=== PATIENT | female | born 1980 | race Caucasian/White ===

== ENCOUNTER → 2018-01-17 12:14 | Outpatient (CLI) | payer OTHER, SELFPAY ==
--- NOTE | 2018-01-17 12:25 | RAD_ITS ---
INDICATION: Infertility. PROCEDURE: Hysterosalpingogram. FLUOROSCOPY TIME (if supplied): (0: 24) seconds Placement of the catheter and the procedure were performed by: Surgeon Dr. Galloway. TECHNIQUE: Fluoroscopy and fluoroscopic spot imaging were provided by the Department of Radiology to the attending surgeon. Images were obtained under direction, supervision and review of the surgeon. Radiologist was present during the entire exam for fluoroscopy. Approximately 10 cc Isovue 370 was utilized. Findings: Iodinated contrast injection into the cervix, and endometrial cavity and both right and left fallopian tubes seen. Right and left peritoneal spillover noted. No obvious filling defect to suggest endometrial synechiae identified. RAD/Salpingogram IMPRESSION: Bilateral peritoneal spill over indicating patent fallopian tubes. Electronically Signed: Ilan Lawson, at 13:34 EDT Tel , Service support ,
== END ==
PROVIDERS: Family Provider Family Medicine; PCP Family Medicine; Visit Provider Obstetrics & Gynecology
DX: N97.9 Female infertility, unspecified (principal)
CPT/HCPCS: 58340; 74740; Q9967

== ENCOUNTER 2018-07-07 06:16 | Emergency (ER) | payer OTHER, SELFPAY ==
[2018-07-07 06:17] VITALS: BP 119/79; PULSE 100; RESP 18; TEMP 37.6; O2SAT 99; BMI 23.6
--- NOTE | 2018-07-07 06:37 | RAD_ITS ---
STUDY: X-RAY CHEST REASON FOR EXAM: Female, 38 years old. Cough. Fever TECHNIQUE: Frontal and lateral views of the chest. COMPARISON: None. FINDINGS: The lungs are clear and expanded. There is no demonstrated pleural abnormality. Normal size heart. Normal mediastinum and ashok. Normal visualized pulmonary arteries. Normal visualized aortic arch and descending thoracic aorta. Normal visualized thoracic spine. Normal visualized ribs, clavicles, and shoulders. There is no demonstrated abnormality of the visualized soft tissue structures of the upper abdomen. RAD/Chest PA and Lateral IMPRESSION: Normal x-ray examination of the chest. Electronically Signed: Alex Obando, at 7:43 EDT Tel , Service support ,
--- NOTE | 2018-07-07 06:39 | ED.VISSUMM ---
- ER Visit Summary Date of Service: 07/07/18 Chief Complaint: Fever History of Present Illness: The patient is a 38 F who presents postop day 2 with a fever. Patient had a laparoscopic hysteroscope done by Dr. Quinonez at [facility] on Wednesday. She has been doing well with no pain. Minimal bleeding. No vaginal discharge. Has not needed any pain medication. She states her only complaint is how sore her throat has been since being intubated. She notes that she has developed a cough with a little bit of sputum. This morning she woke up with 101 fever and chills and body aches. She gets a headache with cough. She denies any urinary symptoms. She has not taken anything for fever reduction. She has been drinking cool fluids prior to arrival in the emergency department Physical Examination: Oral temperature here 99.6 heart rate of 100 respirations are 18 pulse ox 98% room air blood pressure 119/79 Gen: Well-nourished well-developed Head: Normocephalic atraumatic Eyes: Perrl EOMI ENT: TMs clear no rhinorrhea moist mucous membranes there is soft palate erythema most likely related to the intubation Neck: Supple no lymphadenopathy no JVD nontender CVS: Regular rate rhythm no murmurs normal S1-S2 Respiratory: No distress clear to auscultation bilaterally chest nontender Abdomen: Soft nontender nondistended normal bowel sounds no masses Back: Nontender Extremity: Nontender no edema Skin: Normal color no rash Neuro: alert orientated ?3 CN II-XII intact normal strength sensation reflexes gait cerebellar Psych: Normal affect normal mood Test Results: Chest x-ray, urinalysis, and influenza were ordered. These were negative. Emergency Department Course and Treatment: The patient is postop day 2 with reported fever. She has a slight cough. I suspect the fever is more due to atelectasis. I would recommend deep breathing and continued postoperative care. She is to call her surgeon if he has any concerns or new developments. I spoke with Dr. Ayon who is covering Dr. Cristiano forbes. He is comfortable with this plan and is in agreement. Impression: 1. Postoperative fever This note was generated with [employer] dictation software. It may contain incorrect words, spelling, and punctuation that were not noted in review of the chart prior to signing ED Disposition - Plan for ED Patient: Disposition: Home or Assisted Living Instructions: Postsurgical Deep Breathing Additional Instructions: If any new symptoms worsening or concerns please call your surgeon or return to the emergency department.
--- NOTE | 2018-07-07 06:42 | ED.DCSUM_ITS ---
- ER Visit Summary Date of Service: 07/07/18 Chief Complaint: Fever History of Present Illness: The patient is a 38 F who presents postop day 2 with a fever. Patient had a laparoscopic hysteroscope done by Dr. Quinonez at [facility] on Wednesday. She has been doing well with no pain. Minimal bleeding. No vaginal discharge. Has not needed any pain medication. She states her only complaint is how sore her throat has been since being intubated. She notes that she has developed a cough with a little bit of sputum. This morning she woke up with 101 fever and chills and body aches. She gets a headache with cough. She denies any urinary symptoms. She has not taken anything for fever reduction. She has been drinking cool fluids prior to arrival in the emergency department Physical Examination: Oral temperature here 99.6 heart rate of 100 respirations are 18 pulse ox 98% room air blood pressure 119/79 Gen: Well-nourished well-developed Head: Normocephalic atraumatic Eyes: Perrl EOMI ENT: TMs clear no rhinorrhea moist mucous membranes there is soft palate keenan thema most likely related to the intubation Neck: Supple no lymphadenopathy no JVD nontender CVS: Regular rate rhythm no murmurs normal S1-S2 Respiratory: No distress clear to auscultation bilaterally chest nontender Abdomen: Soft nontender nondistended normal bowel sounds no masses Back: Nontender Extremity: Nontender no edema Skin: Normal color no rash Neuro: alert orientated ?3 CN II-XII intact normal strength sensation reflexes gait cerebellar Psych: Normal affect normal mood Test Results: Chest x-ray, urinalysis, and influenza were ordered. These were negative. Emergency Department Course and Treatment: The patient is postop day 2 with reported fever. She has a slight cough. I suspect the fever is more due to atelectasis. I would recommend deep breathing and continued postoperative care. She is to call her surgeon if he has any concerns or new developments. I spoke with Dr. Ayon who is covering Dr. Cristiano forbes. He is comfortable with this plan and is in agreement. Impression: 1. Postoperative fever This note was generated with [employer] dictation software. It may contain incorrect words, spelling, and punctuation that were not noted in review of the chart prior to signing ED Disposition - Plan for ED Patient: Disposition: Home or Assisted Living Instructions: Postsurgical Deep Breathing Additional Instructions: If any new symptoms worsening or concerns please call your surgeon or return to the emergency department.
--- NOTE | 2018-07-07 06:47 | ED.RN ---
PER MD PT IS NOT SEPTIC,
[2018-07-07 06:49] LABS: Bacteria 0 SEEN /hpf (None Seen); Mucous, Urine 0 SEEN /hpf (<or=2+); Red Blood Cells-Urine 0 SEEN /hpf (0-5); Squamous Epithelial Cells - UA 0 SEEN /hpf (5-10)
[2018-07-07 06:53] LABS: Color, Urine Yellow (Yellow); Glucose, Dipstick Normal (Normal); Ketone-Dipstick Negative (Negative); Leukocyte Esterase-Dipstick Negative /ul (Negative); Nitrite-Dipstick Negative (Negative); Occult Blood-Urine 50 /ul (Negative); Protein-Dipstick Negative (Negative); Urine Bilirubin Dipstick Negative (Negative); Urine Clarity Clear (Clear); Urine Urobilinogen Normal (Normal)
[2018-07-07 07:10] LABS: White Blood Cells 0 SEEN /hpf (0-5)
== END 2018-07-07 07:46 | disposition home or self-care (01) ==
PROVIDERS: Emergency Provider Emergency Medicine; Family Provider Family Medicine; PCP Family Medicine
DX: R50.82 Postprocedural fever (principal); R05 Cough; R51 Headache
CPT/HCPCS: 71046; 81001; 87804; 99282

== ENCOUNTER 2018-07-09 10:53 | Emergency (ER) | payer OTHER, SELFPAY ==
[2018-07-09 10:54] VITALS: BP 121/80; PULSE 97; RESP 16; TEMP 36.7; O2SAT 99; BMI 23.6
[2018-07-09 10:56] VITALS: TEMP 36.8
[2018-07-09 10:58] VITALS: TEMP 36.7
--- NOTE | 2018-07-09 11:09 | RAD_ITS ---
STUDY: X-RAY CHEST REASON FOR EXAM: Female, 38 years old. Cough and fever TECHNIQUE: PA and lateral views of the chest. COMPARISON: 06/29/2018 FINDINGS: The lungs are clear and expanded. There is no demonstrated pleural abnormality. Normal size heart. Mildly prominent bilateral ashok, left mildly larger than right, stable since recent comparison study. Normal visualized pulmonary arteries. Normal visualized aortic arch and descending thoracic aorta. Normal visualized thoracic spine. Normal visualized ribs, clavicles, and shoulders. There is no demonstrated abnormality of the visualized soft tissue structures of the upper abdomen. RAD/Chest PA and Lateral IMPRESSION: 1. Stable exam. No airspace consolidation. 2. Hilar fullness with left asymmetry suggests possibility of adenopathy. Electronically Signed: Jon Cronin MD at 11:45 EDT , Service support ,
[2018-07-09 11:36] LABS: Absolute Lymphocyte Count 0.92 X10^3/ul (0.83-4.51); Absolute Neutrophil Count 1.6 X10^3/uL (2.0-7.7); Basophil# 0.01 X10^3/uL; Basophil% 0.3 % (0-1); Eosinophil# 0.05 X10^3/uL; Eosinophils% 1.7 % (0-5); Hematocrit 42.6 % (37-47); Hemoglobin 14.6 g/dl (12.0-15.0); Lymphocyte # 0.92 X10^3/ul (4.0); Lymphocyte % 31.3 % (19-41); Mean Corp Hgb Conc 34.3 g/gl (32-36); Mean Corpuscular Hgb 30.7 pg (27.0-32.0); Mean Corpuscular Volume 89.5 fL (81-99); Mean Platelet Vol. 9.8 fl (6.2-12.0); Monocyte% 13.6 % (0-10); Neutrophil # 1.56 X10^3/uL (2.7-7.7); Neutrophil % 53.1 % (47-70); Platelet Count 234 K/mm3 (150-450); RBC Distribution Width CV 12.6 % (11.6-14.6); Red Blood Count 4.76 M/mm3 (4.2-5.4); White Blood Count 2.9 K/mm3 (4.4-11.0)
[2018-07-09 11:38] LABS: POSITIVE COUNT NO; POSITIVE DIFFERENTIAL NO; POSITIVE MORPHOLOGY NO
--- NOTE | 2018-07-09 11:39 | NURSING ---
HOSPITALIST AND DIRECTOR OF OUTPATIENT SERVICES PAGED
[2018-07-09 11:44] LABS: Anion Gap 4 (5-15); BUN 5 mg/dL (7-18); BUN/Creat Ratio 5.9 RATIO (10-20); Calcium,Total 8.4 mg/dL (8.5-10.1); Chloride 106 mmol/L (98-107); Creatinine, Serum 0.85 mg/dL (0.55-1.02); EST Glomerular Filtration Rate 79 mL/min (>60); Est Glom Filt Rate - Afr Amer 96 mL/min (>60); Estimated Creatinine Clearance 67.72 ml/min; Glucose 91 mg/dL (74-106); Potassium 3.7 mmol/L (3.5-5.1); Sodium Level 138 mmol/L (136-145)
--- NOTE | 2018-07-09 13:01 | ED.VIS.GEN ---
History of Present Illness Chief Complaint: Fever Informant: Patient, Family Onset: Days Context: Sudden Onset Timing: Intermittent Quality: Worsening cough and persistent fever Location: Respiratory Current Severity: Mild Maximum Severity: Moderate Worsened by: Nothing Relieved by: Nothing Associated Symptoms: Moist cough Narrative: Patient a 38-year-old woman who was seen 2 days ago status post gynecologic surgery. Workup at that time was unremarkable. X-ray from that visit was reviewed and there is evidence of bilateral hilar lymphadenopathy. UA was obtained unremarkable. There was no CBC or BMP obtained at that time. Patient denies headache, visual, ocular auditory symptoms. She does have a moist cough which occasionally is productive. She did not look at the sputum does not know the color. She denies pleuritic chest pain. She does report intermittent right scapular pain. She denies leg pain, swelling discoloration. She denies GI or symptoms. She denies rash. She denies rhinorrhea, congestion, postnasal drainage, earache or sore throat Prior similar symptoms: No Recent Illness/Hospitalization: No Past Medical History - Allergies and Home Meds Allergies/Adverse Reactions: Allergies doxycycline Allergy (Verified 07/09/18 10:53) Chest tightness Primary Care Physician: Elena Hawkins MD [Primary Care Provider] - Past Medical History: None Lives: Spouse/ Significant Other Smoking Status: Never smoker Alcohol: Rare Review of Systems General: Reports: Chills, Fever, Malaise. Denies: Sweats, Weight loss Eyes: Denies: Visual changes - bilaterally, Diplopia ENT: Denies: Rhinorrhea, Sore throat Cardiovascular: Denies: Chest pain, Palpitations Respiratory: Reports: Cough. Denies: Dyspnea, Sputum, Dyspnea on exertion, Orthopnea, Paroxysmal nocturnal dyspnea, -, - Gastrointestinal: Denies: Abdominal pain, Nausea, Vomiting, Diarrhea, Melena, Hematochezia Genitourinary: Denies: Dysuria, Hematuria, Frequency, -, - Musculoskeletal: Denies: Myalgias, Arthralgias, Neck pain, Back pain, Swelling, Extremity Pain Skin: Denies: Rash Neurological: Denies: Headache, Weakness, Parasthesia, Numbness, -, - Hematologic: Denies: Easy bruising, Easy bleeding, Lymphadenopathy, -, - Allergy: Denies: Uticaria, Swelling of the mouth, Swelling of the tongue, -, - Physical Exam Vital Signs/Narrative: Vital Signs Temp Pulse Resp BP Pulse Ox 07/09/18 10:58 98.1 F 07/09/18 10:56 98.2 F 07/09/18 10:54 98.0 F 97 16 121/80 H 99 Inital Vital Signs reviewed: Yes General: Well nourished, Well developed, No Acute Distress Head: Normocephalic, Atraumatic Eyes: Perrl, EOMI. Negative for: Pale conjunctiva, Scleral icterus, - ENT: Moist mucous membranes, No rhinorrhea, TM's clear. Negative for: Sinus tenderness Neck: Supple, Nontender, No lymphadenopathy, No JVD Cardiovascular: Regular rate, Regular rhythm, No murmurs Respiratory: No distress, CTA bilaterally, Chest nontender. Negative for: Rales, Rhonchi, Wheezing, Decreased Air Movement Abdomen: Soft, Nontender, Nondistended, Normal bowel sounds, No masses. Negative for: Hepatomegaly, Splenomegaly Back: Nontender. Negative for: CVA tenderness Extremities: Nontender, No edema Skin: Normal color, No rash. Negative for: Pallor Neurological: Alert, Oriented x3, Cranial nerves II-XII grossly intact, Normal Strength, Normal Sensation Psychological: Normal affect, Normal Mood Diagnostic/Tx/Re-eval Chest X-Ray - ED: 2 View, Read by ED Physician, Normal, Heart, Lungs, Bony Structures, No Acute Disease, - - Bilateral hilar lymphadenopathy noted. The x-ray is unchanged from 2 days ago. The x-ray report from 2 days ago was read as negative. Radiologist was contacted and agrees with reading of bilateral hilar lymphadenopathy. Impressions Chest X-Ray 07/09/18 11:09 IMPRESSION: 1. Stable exam. No airspace consolidation. 2. Hilar fullness with left asymmetry suggests possibility of adenopathy. Electronically Signed: Jon Cronin MD at 11:45 EDT , Service support , 07/09/18 11:09 Chest PA and Lateral [RAD] Stat Laboratory Results 07/09/18 07/09/18 11:23 11:23 WBC 2.9 L RBC 4.76 Hgb 14.6 Hct 42.6 MCV 89.5 MCH 30.7 MCHC 34.3 RDW 12.6 RDW Differential 41.0 Plt Count 234 MPV 9.8 Immature Gran % (Auto) 0.000 Neut % (Auto) 53.1 Lymph % (Auto) 31.3 [place] % (Auto) 13.6 H Eos % (Auto) 1.7 Baso % (Auto) 0.3 Absolute Neuts (auto) 1.6 L Absolute Lymphs (auto) 0.92 Total Counted Not Reportable Sodium 138 Potassium 3.7 Chloride 106 Carbon Dioxide 28.0 Anion Gap 4 L BUN 5 L Creatinine 0.85 Estim Creat Clear Calc 67.72 Est GFR (MDRD) Af Amer 96 Est GFR (MDRD) Non-Af 79 BUN/Creatinine Ratio 5.9 L Glucose 91 Calcium 8.4 L - Medical Decision Making With moist slightly productive cough fever will obtain chest x-ray blood work to assess for atelectasis versus pneumonia versus other cause of fever. Since she is a 38-year-old woman with bilateral hilar lymphadenopathy this may represent an autoimmune disorder i.e. sarcoidosis. Because she has a productive cough we will placed on antibiotics. Because of her allergies she was treated with levofloxacin. She also reported reaction to azithromycin which was not listed. ED Disposition - Plan for ED Patient: Disposition: Home or Assisted Living Diagnosis: Postoperative fever, Productive cough, Bilateral hilar adenopathy syndrome Instructions: ED Fever Unconf Cause Prescriptions: levoFLOXacin tablet [Levaquin] 500 mg PO DAILY #7 tab Referrals: Elena Hawkins MD [Primary Care Provider] - 5-7 Days
[2018-07-09 13:16] VITALS: RESP 18; TEMP 37.1
== END 2018-07-09 13:17 | disposition home or self-care (01) ==
PROVIDERS: Emergency Provider Emergency Medicine; Family Provider Family Medicine; PCP Family Medicine
DX: R50.82 Postprocedural fever (principal); R05 Cough; R59.9 Enlarged lymph nodes, unspecified
CPT/HCPCS: 71046; 80048; 85025; 99283

== ENCOUNTER → 2018-07-18 | Outpatient (CLI) | payer OTHER, SELFPAY ==
[2018-07-09 10:54] VITALS: BMI 23.6
--- NOTE | 2018-07-18 16:28 | RAD_ITS ---
HISTORY: pt recently had surgery and wasn't feeling well after-abnormal chest xray EXAM: XR Chest 2 Views COMPARISON: 07/09/18 CXR FINDINGS: LINES/DEVICES: None. LUNGS: Radiographically clear. No consolidation, edema or effusion. No pneumothorax. MEDIASTINUM AND CARDIOVASCULAR STRUCTURES: Cardiac silhouette not enlarged. Persistent bilateral hilar prominence. BONES AND SOFT TISSUES: Unremarkable. RAD/Chest PA and Lateral IMPRESSION: No radiographic evidence of acute cardiopulmonary disease. Persistent bilateral hilar prominence. Adenopathy is possible. at 0500 Reported and signed by: Ramón Alberto MD Electronically Signed: Ramón Alberto, at 4:59 EDT Tel , Service support ,
== END | disposition home or self-care (01) ==
LOC: MTRAD 16:27
PROVIDERS: Family Provider Family Medicine; PCP Family Medicine; Referring Provider Family Medicine; Visit Provider Family Medicine
DX: R93.89 Abnormal findings on diagnostic imaging of other specified body structures (principal)
CPT/HCPCS: 71046

== ENCOUNTER → 2018-08-03 | Outpatient (CLI) | payer OTHER, SELFPAY ==
[2018-07-09 10:54] VITALS: BMI 23.6
--- NOTE | 2018-08-03 07:24 | CT_ITS ---
HISTORY: HILAR ADENOPATHY found on chest x-ray EXAMINATION: CT Chest W/ Contrast TECHNIQUE: Helically acquired images were obtained of the chest following IV contrast. A radiation dose optimization technique was used for this scan. IV Contrast dosage and agent: 100 Isovue 300 COMPARISON: Chest radiograph 07/18/18. FINDINGS: UPPER ABDOMEN: No acute pathology. HEART AND PERICARDIUM: Heart size is normal. There is no pericardial effusion. VESSELS: Thoracic aorta is not dilated. There is no aortic dissection. There is no central pulmonary embolism although this study was not performed with the pulmonary embolism protocol. MEDIASTINUM AND FLORENCE: Mild bilateral hilar lymphadenopathy. No paratracheal adenopathy. OTHER SOFT TISSUES: Included thyroid gland is unremarkable. There is no axillary, supraclavicular or lower cervical adenopathy. LUNGS AND LARGE AIRWAYS: 1.4 cm oval nodular density in the right lung apex with adjacent groundglass attenuation. Cluster of small tree-in-bud nodules in the posterior segment of the right upper lobe. Lungs otherwise clear. Central airways patent. No pneumothorax. PLEURA: Unremarkable. No pleural effusion or thickening. BONES: No suspicious lytic or blastic abnormality observed. CT/Chest WITH Contrast IMPRESSION: Findings are most suspicious for granulomatous infection such as nontuberculous microbacterial infection or another smoldering atypical pneumonia involving the right upper lobe and bilateral hilar lymph nodes. Noninfectious inflammatory process might also appear this way. The appearance is atypical for neoplasm which is unlikely. Individualized dose optimization techniques were used for this CT. at 1417 Reported and signed by: Ramón Alberto MD Electronically Signed: aRmón Alberto, at 14:16 EDT Tel , Service support ,
== END | disposition home or self-care (01) ==
LOC: CT 07:20
PROVIDERS: Family Provider Family Medicine; PCP Family Medicine; Referring Provider Family Medicine; Visit Provider Family Medicine
DX: R59.0 Localized enlarged lymph nodes (principal)
CPT/HCPCS: 71260; Q9967

== ENCOUNTER → 2018-08-09 | Outpatient (CLI) | payer OTHER, SELFPAY ==
[2018-08-09 12:24] LABS: Erythrocyte Sedimentation Rate 3 mm/hr (0-20)
[2018-08-09 12:46] LABS: CRP < 2.90 mg/L (0.0-3.0)
[2018-08-10 17:48] LABS: Mycoplasma Pneum AB IgG 351 U/mL (0-99); Mycoplasma pneum. AB IgM < 770 U/mL (0-769)
== END | disposition home or self-care (01) ==
LOC: MTLAB 09:49
PROVIDERS: Family Provider Family Medicine; PCP Family Medicine; Referring Provider Internal Medicine Pulmonary Disease; Visit Provider Internal Medicine Pulmonary Disease
DX: R91.1 Solitary pulmonary nodule (principal); R59.9 Enlarged lymph nodes, unspecified
CPT/HCPCS: 36415; 85652; 86140; 86738

== ENCOUNTER → 2018-12-22 08:04 | Outpatient (CLI) | payer OTHER, SELFPAY ==
[2018-12-22 08:46] LABS: hCG Titer Quant., Serum 268 mIU/mL (1-3)
== END ==
PROVIDERS: Family Provider Family Medicine; PCP Family Medicine; Visit Provider Obstetrics & Gynecology Reproductive Endocrinology
DX: Z32.00 Encounter for pregnancy test, result unknown (principal)
CPT/HCPCS: 36415; 84702

== ENCOUNTER → 2018-12-26 08:11 | Outpatient (CLI) | payer OTHER, SELFPAY ==
[2018-12-26 09:08] LABS: hCG Titer Quant., Serum 1474 mIU/mL (1-3)
== END ==
PROVIDERS: Family Provider Family Medicine; PCP Family Medicine; Referring Provider Obstetrics & Gynecology Reproductive Endocrinology; Visit Provider Obstetrics & Gynecology Reproductive Endocrinology
DX: Z32.01 Encounter for pregnancy test, result positive (principal)
CPT/HCPCS: 36415; 84702

== ENCOUNTER 2019-01-19 10:00 | Emergency (ER) | payer OTHER, SELFPAY ==
[2019-01-19 10:00] VITALS: BP 115/78; PULSE 99; RESP 17; TEMP 36.6; O2SAT 96; BMI 24.0
--- NOTE | 2019-01-19 10:23 | ED.DCSUM_ITS ---
- ER Visit Summary Date of Service: 01/19/19 Chief Complaint: Headache History of Present Illness: The patient is a [address] Hawkins. She is a at [address] Shipley for this. She is currently taking injectable progesterone, estradiol, and aspirin. Patient reports that she has a headache that began yesterday at 5 AM. Is gradually gotten worse. Is a sharp pain over her right moravian with radiation toward her right side of her jaw. Is 10 out of 10 at worst and 7-10 currently. Is worsened by light and sound. She is used ice, aromatherapy, and Tylenol without relief. She has been nauseated without vomiting. She denies any numbness or weakness. No change in her vision. No fever, chills, recent injury to her head. She reports that this is the second migraine that she has had since starting the injectable hormones. Physical Examination: Vitals: Stable. Afebrile. General: Well-nourished and well-developed. Head: Normocephalic atraumatic. Neck: Supple, no lymphadenopathy. No JVD. Nontender. Cardiovascular: Regular rate and rhythm. No murmurs. Respiratory: No respiratory distress. Clear to auscultation bilaterally. Abdominal: Soft, nontender, nondistended, normal bowel sounds. No guarding, rebound, or peritoneal signs. Back: Nontender. Extremities: Nontender, no edema. Skin: Normal color, no rash. Neurologic: Alert and oriented ?3. Cranial nerves II through XII are intact. Normal strength and sensation. Psych: Normal affect. Test Results: Patient refused CT. Emergency Department Course and Treatment: Patient had an IV placed. She was given a liter of normal saline. She was given Reglan IV and Tylenol p.o. She is resting more comfortably. On repeat exam she reports that her headache is completely resolved. Treatment Plan: Patient will be discharged instructions to contact Dr. Quinonez, her public relations account executive, to see if he wants to change anything about her hormone therapy for her . She will also be given a prescription for Reglan to use as needed. Return to the emergency department for any worsening symptoms. Disposition: To home in improved and stable condition. Impression: 1. Cephalgia. 2. First trimester . This note was generated with [employer] software. It may contain incorrect words, spelling, and punctuation that were not noted in review of the chart prior to signing ED Disposition - Plan for ED Patient: Instructions: HEADACHE, Unspecified Prescriptions: Metoclopramide [Reglan] 10 mg PO 4X/DAY PRN #20 tablet PRN Reason: Headache Referrals: Elena Hawkins MD [Primary Care Provider] - 1-2 Days if not improving
[2019-01-19] MEDS: Metoclopramide 10 MG/2 ML Vial IV (10:45)
[2019-01-19] MEDS: Acetaminophen 500 MG Tablet 1000 MG PO (10:45)
[2019-01-19] MEDS: 0.9% Normal Saline 1,000 ML 999 ML IV (10:45)
[2019-01-19 11:47] VITALS: BP 94/65; PULSE 78; RESP 16; O2SAT 98
== END 2019-01-19 11:48 | disposition home or self-care (01) ==
LOC: ED 10:35
PROVIDERS: Emergency Provider Emergency Medicine; Family Provider Family Medicine; PCP Family Medicine
DX: O26.891 Other specified pregnancy related conditions, first trimester (principal); R51 Headache; Z3A.08 8 weeks gestation of pregnancy; Z79.82 Long term (current) use of aspirin; Z79.899 Other long term (current) drug therapy
CPT/HCPCS: 96361; 96374; 99284; J7030

== ENCOUNTER 2019-08-04 05:32 | Inpatient (IN) | payer OTHER, SELFPAY ==
[2019-08-04] VITALS (48 sets, daily range): BP systolic 81–131; BP diastolic 46–81; PULSE 85–127; RESP 14–22; TEMP 35.7–37.2; O2SAT 92–100; BMI 28.6
[2019-08-04 05:42] LABS: ROM Internal Control Test YES-OK TO RESULT pt. (Internal QC)
[2019-08-04 05:43] LABS: ROM Patient Test POSITIVE (Negative)
[2019-08-04] MEDS: Lactated Ringers 1,000 ML 50 ML IV (05:45)
[2019-08-04 05:58] LABS: Absolute Lymphocyte Count 1.25 X10^3/uL (0.83-4.51); Absolute Neutrophil Count 7.1 X10^3/uL (2.0-7.7); Basophil# 0.04 X10^3/uL; Basophil% 0.4 % (0-1); Hematocrit 34.3 % (37-47); Hemoglobin 11.6 g/dL (12.0-15.0); Lymphocyte # 1.25 X10^3/ul (4.0); Mean Corp Hgb Conc 33.8 g/dL (32-36); Mean Corpuscular Hgb 29.8 pg (27.0-32.0); Mean Corpuscular Volume 88.2 fL (81-99); Monocyte# 1.04 X10^3/uL; Monocyte% 10.8 % (0-10); NRBC Flagged by Analyzer 0 % (0-5); Neutrophil # 7.13 X10^3/uL (2.7-7.7); Neutrophil % 74.2 % (47-70); Platelet Count 291 K/mm3 (150-450); RBC Distribution Width CV 13.1 % (11.6-14.6); RBC Distribution Width SD 41.2 fl (35.1-43.9); Red Blood Count 3.89 M/mm3 (4.2-5.4); White Blood Count 9.6 K/mm3 (4.4-11.0)
[2019-08-04] MEDS: Betamethasone/Betamethasone 30 MG/5 ML Vial 12 MG IM (06:55)
[2019-08-04] MEDS: Oxytocin 30 units/NS 500 ml 30 UNITS/500 ML IV.SOLN IV (09:07)
--- NOTE | 2019-08-04 09:40 | PCM.HP.OB ---
History Date of Admission: 08/04/19 Final ANTONIO: 09/01/19 Final ANTONIO Source: US <20 weeks Gestational age: 36 Weeks and 0 Days History of this : This is a 39 year-old, 2 para 0-1-0-1 at 36 weeks gestation with spontaneous rupture membranes at approximately 4 AM. She had a large gush. She was not having any regular contractions. She had no gross vaginal bleeding. Prior to labor and delivery and was found to be ruptured. This is an in vitro . She has a history of a previous delivery and she did attempt to take progesterone injections. However, after 3 injections she had some significant mood changes and had to discontinue them. She has advanced maternal age. She had preimplantation genetic studies performed on the embryos before transfer. Allergies azithromycin [From Zithromax] Allergy (Verified 08/04/19 05:40) Chest tightness doxycycline Allergy (Verified 08/04/19 05:40) Chest tightness Home Medications: Home Medications Progesterone 1 dose IM DAILY 01/19/19 Doxylamine Succinate [Unisom] 25 mg PO DAILY 08/04/19 Vits [Prenatabs FA] 1 tab PO DAILY 08/04/19 Smoking Status: Never smoker Alcohol: None Number of Fetus(es): 1 History Past Pregnancies: Past Pregnancies Delivery Date Name GA/ Weeks Outcome Route Wt Sex Labor Length Anesthesia Delivery Location Provider FOB Expected Infant Delivery Method: Spontaneous Vaginal Review of Systems Constitutional: Denies: Chills, Fever Eyes: Denies: Blurred vision HEENT: Denies: Head Aches Cardiovascular: Denies: Chest Pain Respiratory: Denies: Cough Gastrointestinal: Denies: Nausea, Vomiting Genitourinary: Denies: Dysuria Skin: Denies: Rash Neurological: Denies: Blurred vision, Slurred speech, Headaches Physical Exam Vitals: Vital Signs Temp Pulse BP Pulse Ox 98.7 F 96 111/62 98 08/04/19 09:24 08/04/19 09:27 08/04/19 09:27 08/04/19 09:24 General: Alert, Cooperative, No apparent distress Cardiovascular: Regular rate Lungs: Normal air movement Abdomen: Soft, Non Tender, Non-Distended, Gravid, Appropriate for Gestational Age Extremities:: No edema Neurological: Neuro grossly intact Assessment/Plan This is a 39 year-old, @ 36 0/7 weeks w/ PPROM induction of labor w/ pitocin having occasional decelerations, monitor closely EFW is approx 3500 gm, pelvis clinically adeqate to expect vaginal delivery epidural when needed GBS prophylaxis started had BMZ x 1
[2019-08-04] MEDS: Lactated Ringers 500 ML 999 ML IV ×4 (12:27→19:36)
[2019-08-04] MEDS: Amnioinfusion- 0.9% NS 1,000 ML IV.SOLN. 1000 ML INTRA-UTER (14:35)
[2019-08-04] MEDS: fentaNYL-bupivacaine (epidural) 100 ML BAG EPIDURAL (18:12)
--- NOTE | 2019-08-04 20:52 | OP.PCM_ITS ---
Delivery Classification: DAISY Final ANTONIO: 09/01/19 Gestational age: 36 Weeks and 0 Days departmental buyer: Mercy De Los Santos Type of Anesthesia:: Spinal Date of Procedure: 08/04/19 Pre-Operative Diagnosis: gestation, PROM, persitent category 2 FHR- remote from delivery Post-Operative Diagnosis: same, Live male born Indications for : Nonreassuring Status Description of Procedure: After informed consent was obtained the patient was taken the operating room She was then placed in the supine position. She was prepped and draped in the normal sterile fashion. Epidural Anesthesia was found to be adequate. At this time a Pfannenstiel skin incision was made with a knife was carried down to the underlying layer of the fascia. The fascial incision was then extended laterally using curved Butler scissor. Attention was then turned to the superior aspect of the fascial edge was grasped with 2 straight Cardinal clamps tented up and the rectus muscle dissected off sharply using curved Butler scissor. Attention was then turned to the inferior aspect where again Rehan clamps were placed in the rectus muscles were tented up and the fascia was dissected off sharply using the curved Butler scissor. Rectus muscles were then in the midline bluntly and peritoneum was entered bluntly. Gentle opposing traction was placed. At this time the vesicouterine peritoneum was identified. Scalpel was used to make a uterine incision in a low transverse fashion. The uterus was then entered bluntly gentle opposing traction was placed to extend this incision. Infant's head was brought to the uterine incision was delivered atraumatically. loose nuchal x 1. Cord was clamped and cut was handed to the waiting nursery team. The Placenta was removed from the uterus. The uterus remained in the abdominal cavity. The uterus was cleared of all clots and debris using a lap. At this time the uterine incision was reapproximated using #1 Vicryl in a running locked fashion followed by a second firgure of eight layer with 1-0 vicryl. Hemostasis was appreciated.. Gutters were cleared of all clots and debris. Uterine incision was reevaluated and noted to be of excellent hemostasis. At this time the peritoneum was grasped with Kellys reapproximated using #3 Vicryl suture in a running fashion. Muscles then reapproximated using #2 Vicryl in a interrupted mattress suture fashion. Fascia was then reapproximated using #1 Vicryl in a running fashion. Subcu layer was reapproximated with #2 0 plain gut suture in an interrupted fashion. Subcu layer was closed using 4-0 Monocryl in a subcu fashion. Dry sterile dressing was applied. Instrument lap needle count correct ?2. Anticipated normal postoperative course. Amniotic Membrane Rupture Type: Spontaneous Amniotic Fluid Description: Clear Placenta Disposition: [facility] Drain: Pruitt to straight drain Cord Entanglement: Around neck x 1, loose Nuchal Cord Compression: With compression Cord Vessel Description: 3 Vessels Esitmated Blood Loss (ml): 600 Infant Gender: Male (1 minute): 8 (5 minute): 9 Delayed cord clamping: No Antibiotic Given: Ancef 2 grams IV x1 Pt instructed on risks of surgery: Bleeding, Anesthesia Risks, Infection, Injury to surrounding structure(s) including bowel and bladder Complications: None - Admit VTE Documentation VTE Present on Admission: Yes VTE Mechan Device Prophylaxis: SCD's VTE Pharm Prophylaxis ordered?: No
[2019-08-04] MEDS: Oxytocin 30 units/NS 500 ml 30 UNITS/500 ML IV.SOLN 167 UNITS IV (21:06)
[2019-08-04] MEDS: Lactated Ringers 1,000 ML 100 ML IV (22:21)
[2019-08-05] VITALS (10 sets, daily range): BP systolic 97–108; BP diastolic 56–71; PULSE 82–108; RESP 16–20; TEMP 36.2–36.9; O2SAT 96–100
[2019-08-05] MEDS: Ondansetron 4 MG/2 ML Vial IV (00:37)
[2019-08-05] MEDS: Ketorolac 30 MG/ML Syringe IV ×4 (01:59→20:47)
[2019-08-05] MEDS: Lactated Ringers 1,000 ML 100 ML IV (03:55)
[2019-08-05 06:21] LABS: Hematocrit 29.8 % (37-47); Hemoglobin 9.8 g/dL (12.0-15.0); Mean Corp Hgb Conc 32.9 g/dL (32-36); Mean Corpuscular Hgb 30.7 pg (27.0-32.0); Mean Corpuscular Volume 93.4 fL (81-99); Mean Platelet Vol. 10.1 fl (6.2-12.0); Platelet Count 231 K/mm3 (150-450); RBC Distribution Width CV 13.2 % (11.6-14.6); RBC Distribution Width SD 44.1 fl (35.1-43.9); Red Blood Count 3.19 M/mm3 (4.2-5.4); White Blood Count 13.5 K/mm3 (4.4-11.0)
[2019-08-05] MEDS: 0.9% Saline Lock 10 ML Syringe IV ×3 (09:00→20:47)
--- NOTE | 2019-08-05 11:38 | CASEMGMT ---
Social Work Labor and Delivery Unit Date of Referral: 08/05/2019 Time of Referral: 1059 Referred By: Dr. Ayala Date of Intervention: 08/05/2019 Tie of Intervention: 1138 Reason for Referral: Triggered PHQ-9, transferred to [facility]. History obtained from: Mother of baby (MOB), Chart, Nursing staff. Household composition: MOB, Father of baby (FOB), Steve Toledo and MOB's 12 year old daughter, Kimberley. This , Case Tre does not share paternity with Kimberley. Patient's parent/guardian status: MOB and FOB have guardianship of this . MOB is guardian of Kimberley. MOB and FOB have been for 3 years and MOB voicing no safety concerns for in the home. Medical History: MOB with that was not planned. Advanced maternal age. In-vitro . Infant born on 08/04/2019 with 's of 8 and 9 at 1min and 5min. weight of 2950g. Infant transferred to [facility] due to respiratory distress on 08/05/2019 in mannequin coloring artist. Educational Status: Bachelor degree. 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 No concerns with comprehension or understanding. FOB also working. Financial Status: No concerns. Supplies: MOB reporting to have all needed supplies within the home. MOB planning to breastfeed and pump as infant is not able to be with MOB at this time. Childcare/caregivers: MOB to be primary caregiver for patient at this time. Transportation: No concerns. Programs/Agencies Involved: None Children Services/Legal Issues: None Mental Health History: MOB denies any mental health history or counseling services. MOB educated on signs and symptoms of depression and MOB's risk for depression. MOB with positive mindset in how to manage through this time that MOB is unable to be with infant. MOB able to express positive coping skills and self identified the importance of healing for MOB so MOB is able to care for . MOB denies any SI/HI history or current thoughts. Substance Abuse/use: None PHQ-9: Triggered PHQ-9 2, patient stating to have had difficulty finding interest in life over the past few weeks. Patient stating to have been under home quarantine due to COVID-19 pandemic for the pasts 14 days prior to having baby and to have not been able to find interest in doing things as I could not go anywhere. Patient is negative for other questions on PHQ-9 assessment. Patient with forward thinking thoughts and pleasant/appropriate affect. Broached topic of possible counseling services for support. MOB not open to committing to anything at this time, but resources provided for local counseling agencies if need would arise. MOB was open to receiving list. Family/Social Stressors: being transferred to [facility]. Current COVID-19 crisis. No other stressors identified. Support System: MOB stating to have positive support from FOB and family. Depression and Anxiety/Shaken Baby/Safe Sleeping: MOB educated on PPD, Anxiety, Shaken Baby, Safe Sleeping and resources provided. MOB also provided with list of local counseling agencies. Assessment: Met with MOB in room. Introduced self as well as health care social worker role. MOB agreeable to speaking with this health care social worker. MOB tearful due to infant being transferred to [facility]. MOB able to collect self and manage emotions. This health care social worker normalizing MOB's emotions and feelings at this time. MOB unsure when MOB will be able to discharge due to . MOB stating to have really not wanted a and to be frustrated with how the will make it even more complicated to be with . MOB able to express frustration appropriately and able to normalize self to current situation. MOB stated to understand the importance of getting self healthy in order to be able to care for in the detention. MOB stating to have a connection with and to be looking forward to being able to be with . FOB is currently with infant and giving MOB updated on infant status. Active support and listening provided. PLAN: MOB to discharge when medically cleared to go be with at [facility]. No further services request or indicated. Barb IRVING, JENNYFER
--- NOTE | 2019-08-05 13:09 | PN.OBGYN_ITS ---
Subjective: Pain well controlled. Average lochia. No nausea. Has a history of nausea with narcotic medications. Tolerating regular diet - Physical Exam Vitals/I&O's: Vital Signs Temp Pulse Resp BP Pulse Ox 98.4 F 87 18 104/67 100 08/05/19 08:35 08/05/19 08:35 08/05/19 08:35 08/05/19 08:35 08/05/19 08:35 Oxygen Delivery Method Room Air Weight: 66.6 kg Body Mass Index (BMI) 28.6 Intake and Output for Last 24 Hours 08/03/19 08/04/19 08/05/19 23:59 23:59 23:59 Intake Total 4025.84 / 4025.84 2065.00 / 2065.00 Output Total 3050 / 3050 250 / 250 Balance 975.84 / 975.84 1815.00 / 1815.00 General: Alert, Cooperative, No apparent distress Lungs: Normal air movement Abdomen: Soft, Distended - mildly, Tender - appropriately Extremities: Edema - trace Skin: Incision - bandage is clean, dry and intact Laboratory Results 08/05/19 05:45: WBC 13.5 H, RBC 3.19 L, Hgb 9.8 L, Hct 29.8 L, MCV 93.4 D, MCH 30.7, MCHC 32.9, RDW Std Deviation 44.1 H, RDW Coeff of Phill 13.2, Plt Count 231, MPV 10.1 Current Medications Acetaminophen (Tylenol) 1,000 mg PO Q8H PRN PRN Reason: Pain Score 1-3/10 Bisacodyl (Dulcolax) 10 mg RECTAL UD PRN PRN Reason: If no BM Hydrocortisone (Hytone) 1 applic TOPICAL TID PRN PRN; Protocol PRN Reason: Discomfort Naloxone HCl 4 mg/ Dextrose 504 mls @ 0 mls/hr IV .Q0M PRN; Protocol PRN Reason: To maintain Resp. rate >10 Ibuprofen (Motrin) 600 mg PO Q6H PRN PRN PRN Reason: Pain Score 1-3/10 Ketorolac Tromethamine (Toradol (Bkc)) 30 mg IV Q6H NAVNEET Stop: 08/06/19 20:31 Last Admin: 08/05/19 08:52 Dose: 30 mg Documented by: Methylergonovine Maleate (Methergine) 0.2 mg IM X1 PRN PRN Reason: Uterine Atony Naloxone HCl (Narcan) 0.02 mg IV Q1M PRN PRN Reason: RR <10 and pt unresponsive Ondansetron HCl (Zofran) 4 mg IV Q4H PRN PRN PRN Reason: Nausea Last Admin: 08/05/19 00:37 Dose: 4 mg Documented by: Prochlorperazine Edisylate (Compazine Iv) 10 mg IV Q6H PRN PRN PRN Reason: NAUSEA Senna/Docusate Sodium (Senokot-S, Corie-Colace) 0 tablet PO DAILY PRN PRN Reason: Constipation Simethicone (Mylicon) 80 mg PO PCHS PRN PRN Reason: Indigestion/stomach pain Sodium Chloride () 5 - 15 ml IV UD PRN PRN Reason: SALINE FLUSH Last Admin: 08/05/19 09:00 Dose: 10 ml Documented by: Medical Necessity - Tobacco Use Smoking Status: Never smoker Assessment/Plan POD#1 S/P PRIMARY C/S for intolerance of labor baby transported to [facility] NICU for respiratory issues h/o nausea w/ narcotics. trial of low dose prn. Zofran prn before dosing. May consider tramadol trial. will likely d/c home tomorrow
--- NOTE | 2019-08-05 16:15 | NURSING ---
Straight cath completed after pt. up to bathroom and in shower and unable to void. 600 cc drained from bladder with cath. Pt. to attempt to void prior to pumping each time as she reports this happened after last delivery and felt it was due to waiting to long to void.
[2019-08-05] MEDS: Acetaminophen 500 MG Tablet 1000 MG PO (19:02)
[2019-08-06 02:30] VITALS: BP 94/56; PULSE 68; RESP 16; TEMP 36.3; O2SAT 98
[2019-08-06] MEDS: Ketorolac 30 MG/ML Syringe IV ×2 (02:43→07:58)
[2019-08-06] MEDS: Senna/Docusate Sodium 1 Tablet PO (02:57)
[2019-08-06] MEDS: Acetaminophen 500 MG Tablet 1000 MG PO (06:19)
--- NOTE | 2019-08-06 07:51 | PCM.PN.OB ---
Subjective: Pain well controlled. Average lochia. - Physical Exam Vitals/I&O's: Vital Signs Temp Pulse Resp BP Pulse Ox 97.3 F L 68 16 94/56 L 98 08/06/19 02:30 08/06/19 02:30 08/06/19 02:30 08/06/19 02:30 08/06/19 02:30 Oxygen Delivery Method Room Air Weight: 66.6 kg Body Mass Index (BMI) 28.6 Intake and Output for Last 24 Hours 08/04/19 08/05/19 08/06/19 23:59 23:59 23:59 Intake Total 4025.84 / 4025.84 2065.00 / 2065.00 Output Total 3050 / 3050 1550 / 1550 Balance 975.84 / 975.84 515.00 / 515.00 General: Alert, Cooperative, No apparent distress Abdomen: Soft, Distended - Mildly, softly, Tender - Appropriately Current Medications Acetaminophen (Tylenol) 1,000 mg PO Q8H PRN PRN Reason: Pain Score 1-3/10 Last Admin: 08/06/19 06:19 Dose: 1,000 mg Documented by: Bisacodyl (Dulcolax) 10 mg RECTAL UD PRN PRN Reason: If no BM Hydrocortisone (Hytone) 1 applic TOPICAL TID PRN PRN; Protocol PRN Reason: Discomfort Naloxone HCl 4 mg/ Dextrose 504 mls @ 0 mls/hr IV .Q0M PRN; Protocol PRN Reason: To maintain Resp. rate >10 Ibuprofen (Motrin) 600 mg PO Q6H PRN PRN PRN Reason: Pain Score 1-3/10 Ketorolac Tromethamine (Toradol (Bkc)) 30 mg IV Q6H NAVNEET Stop: 08/06/19 20:31 Last Admin: 08/06/19 02:43 Dose: 30 mg Documented by: Methylergonovine Maleate (Methergine) 0.2 mg IM X1 PRN PRN Reason: Uterine Atony Naloxone HCl (Narcan) 0.02 mg IV Q1M PRN PRN Reason: RR <10 and pt unresponsive Ondansetron HCl (Zofran) 4 mg IV Q4H PRN PRN PRN Reason: Nausea Last Admin: 08/05/19 00:37 Dose: 4 mg Documented by: Ondansetron HCl (Zofran Odt) 4 mg PO Q8H PRN PRN PRN Reason: NAUSEA Oxycodone HCl (Oxyir) 2.5 - 5 mg PO Q4H PRN PRN PRN Reason: Pain Score 4-10/10 Prochlorperazine Edisylate (Compazine Iv) 10 mg IV Q6H PRN PRN PRN Reason: NAUSEA Senna/Docusate Sodium (Senokot-S, Corie-Colace) 0 tablet PO DAILY PRN PRN Reason: Constipation Last Admin: 08/06/19 02:57 Dose: 1 tablet Documented by: Simethicone (Mylicon) 80 mg PO PCHS PRN PRN Reason: Indigestion/stomach pain Last Admin: 08/05/19 21:54 Dose: 80 mg Documented by: Sodium Chloride () 10 ml IV UD NAVNEET Last Admin: 08/05/19 20:47 Dose: 10 ml Documented by: Medical Necessity - Tobacco Use Smoking Status: Never smoker Assessment/Plan day #2 status post section for nonreassuring heart tones. Patient is doing well. Desires discharge home. is doing well in special care nursery
--- NOTE | 2019-08-06 07:53 | DCINST_ITS ---
Discharge Diet: No Restrictions Discharge Activity: Return to Normal Activity, May Not Drive - for 2 weeks, May not drive while taking narcotic pain medications., May Shower, May Take a Tub Bath - in 7 days. May resume sexual activity in: 4-6 weeks Lifting Restrictions: 20 pounds Additional Activity Instructions:: Nothing in the vagina for 4-6 weeks. You may return to work/school in 6 weeks. Call your doctor if your incision/area has: Continuous Slow Oozing, Sudden Increased Bleeding, Increased Pain/ Swelling, Increased Redness, Foul Smelling Discharge Call your doctor if you observe: Fever of 101 or Higher, Using more than one pad per hour - for 2 hours Suture Line Care: Avoid Pulling/Pushing, Avoid Pinching/Bending Cleanse incision/area with: Keep Dressing Clean & Dry Additional Instructions: If you experience any of the following, contact your healthcare provider. * Bleeding that soaks a pad every hour for 2 hours * Fever 100.4 or higher * Unrelieved incision or abdominal pain * Swelling, redness, discharge or bleeding from your incision or episiotomy site * Your incision begins to separate * Problems urinating (including inability to urinate or burning while urinating). * Visual changes * Severe headache * Flu-like symptoms * Pain or redness in one of both of your breasts * Pain, warmth, tenderness or swelling in your legs, especially the calf area * Frequent nausea and vomiting * Symptoms of depression or anxiety If you experience any of the following, call 911 or go to the nearest Emergency Room. * Chest pain * Problems breathing * Seizure activity * Partial or complete paralysis of a body part, slurred speech, weakness or drooping of the face, or a sudden inability to walk or hold your balance Allergies/Adverse Reactions: Allergies azithromycin [From Zithromax] Allergy (Verified 08/04/19 05:40) Chest tightness doxycycline Allergy (Verified 08/04/19 05:40) Chest tightness Medications to take at Discharge Vits [Prenatabs FA ] 1 tab PO DAILY 08/04/19 Ibuprofen [Motrin] 800 mg PO TID PRN PRN #60 tab 08/06/19 Oxycodone [Oxyir] 5 mg PO Q6H PRN PRN 7 Days #8 tablet 08/06/19 The following prescriptions were given: Ibuprofen [Motrin] 800 mg PO TID PRN PRN #60 tab PRN Reason: Pain Transmission Status: Pending to [facility] Oxycodone [Oxyir] 5 mg PO Q6H PRN PRN 7 Days #8 tablet PRN Reason: severe pain Transmission Status: Received by IZZYGiorgio [facility] Follow-Up: Call to make an appointment with your doctor for an incision check in 1-2 weeks. You will also need a 6 week post- follow up appointment. Test results from this visit will be discussed in further detail at your follow- up appointment, if applicable. Please Follow Up With: Silvia Raymond MD - Call to make an appointment for an incision check in 1-2 [phone] When: You will need a post check in 6 weeks. Primary Care Physician: Elena Hawkins MD [Primary Care Provider] -
--- NOTE | 2019-08-06 07:56 | PCM.DC.SUM ---
Discharge Date and Diagnosis Date of Admission: 08/04/19 Hospital Course and Treatment Consultations 08/04/19 05:46 Consult: Anesthesia Routine Comment: Reason For Exam: Labor Operations: - - primary LTCS Procedures: None Summary of Care Provided: The patient is a 39 year old female was admitted with term premature rupture of membranes. She underwent a Pitocin induction. However, she had prolonged decelerations and category 2 heart tones remote from delivery. Due to intolerance of labor, patient underwent primary section. This was performed without difficulty. Patient did well and by postoperative day #2 she was ambulating, urinating tolerating regular diet without discharge. She was discharged home with routine instructions and prescriptions. [] - Physical Exam Vitals/I&O's: Vital Signs Temp Pulse Resp BP Pulse Ox 97.3 F L 68 16 94/56 L 98 08/06/19 02:30 08/06/19 02:30 08/06/19 02:30 08/06/19 02:30 08/06/19 02:30 Oxygen Delivery Method Room Air Weight: 66.6 kg Body Mass Index (BMI) 28.6 Intake and Output for Last 24 Hours 08/04/19 08/05/19 08/06/19 23:59 23:59 23:59 Intake Total 4025.84 / 4025.84 2065.00 / 2065.00 Output Total 3050 / 3050 1550 / 1550 Balance 975.84 / 975.84 515.00 / 515.00 Current Medications Acetaminophen (Tylenol) 1,000 mg PO Q8H PRN PRN Reason: Pain Score 1-3/10 Last Admin: 08/06/19 06:19 Dose: 1,000 mg Documented by: Bisacodyl (Dulcolax) 10 mg RECTAL UD PRN PRN Reason: If no BM Hydrocortisone (Hytone) 1 applic TOPICAL TID PRN PRN; Protocol PRN Reason: Discomfort Naloxone HCl 4 mg/ Dextrose 504 mls @ 0 mls/hr IV .Q0M PRN; Protocol PRN Reason: To maintain Resp. rate >10 Ibuprofen (Motrin) 600 mg PO Q6H PRN PRN PRN Reason: Pain Score 1-3/10 Ketorolac Tromethamine (Toradol (Bkc)) 30 mg IV Q6H NAVNEET Stop: 08/06/19 20:31 Last Admin: 08/06/19 02:43 Dose: 30 mg Documented by: Methylergonovine Maleate (Methergine) 0.2 mg IM X1 PRN PRN Reason: Uterine Atony Naloxone HCl (Narcan) 0.02 mg IV Q1M PRN PRN Reason: RR <10 and pt unresponsive Ondansetron HCl (Zofran) 4 mg IV Q4H PRN PRN PRN Reason: Nausea Last Admin: 08/05/19 00:37 Dose: 4 mg Documented by: Ondansetron HCl (Zofran Odt) 4 mg PO Q8H PRN PRN PRN Reason: NAUSEA Oxycodone HCl (Oxyir) 2.5 - 5 mg PO Q4H PRN PRN PRN Reason: Pain Score 4-10/10 Prochlorperazine Edisylate (Compazine Iv) 10 mg IV Q6H PRN PRN PRN Reason: NAUSEA Senna/Docusate Sodium (Senokot-S, Corie-Colace) 0 tablet PO DAILY PRN PRN Reason: Constipation Last Admin: 08/06/19 02:57 Dose: 1 tablet Documented by: Simethicone (Mylicon) 80 mg PO PCHS PRN PRN Reason: Indigestion/stomach pain Last Admin: 08/05/19 21:54 Dose: 80 mg Documented by: Sodium Chloride () 10 ml IV UD NAVNEET Last Admin: 08/05/19 20:47 Dose: 10 ml Documented by: Discharge Diet: No Restrictions Discharge Activity: Return to Normal Activity, May Not Drive - for 2 weeks, May not drive while taking narcotic pain medications., May Shower, May Take a Tub Bath - in 7 days. May resume sexual activity in: 4-6 weeks Additional Activity Instructions:: Nothing in the vagina for 4-6 weeks. You may return to work/school in 6 weeks. Call your doctor if your incision/area has: Continuous Slow Oozing, Sudden Increased Bleeding, Increased Pain/ Swelling, Increased Redness, Foul Smelling Discharge Call your doctor if you observe: Fever of 101 or Higher, Using more than one pad per hour - for 2 hours Suture Line Care: Avoid Pulling/Pushing, Avoid Pinching/Bending Cleanse incision/area with: Keep Dressing Clean & Dry Home Medications: Medications to take at Discharge Vits [Prenatabs FA ] 1 tab PO DAILY 08/04/19 Ibuprofen [Motrin] 800 mg PO TID PRN PRN #60 tab 08/06/19 Oxycodone [Oxyir] 5 mg PO Q6H PRN PRN 7 Days #8 tablet 08/06/19 Following Prescrptions Were Given to Patient: Ibuprofen [Motrin] 800 mg PO TID PRN PRN #60 tab PRN Reason: Pain Transmission Status: Pending to KIRSTY NAIDU RD Oxycodone [Oxyir] 5 mg PO Q6H PRN PRN 7 Days #8 tablet PRN Reason: severe pain Transmission Status: Received by KIRSTY NAIDU RD Primary Care Physician: Elena Hawkins MD [Primary Care Provider] - Please Follow Up With: Silvia Raymond MD - Call to make an appointment for an incision check in 1-2 [phone] When: You will need a post check in 6 weeks. Medical Necessity - Tobacco Use Smoking Status: Never smoker Meaningful Use Info Meaningful Use Diagnoses (Choose all that apply): None applicable
[2019-08-06] MEDS: 0.9% Saline Lock 10 ML Syringe IV (07:59)
[2019-08-06 08:22] VITALS: BP 90/59; PULSE 78; RESP 14; TEMP 36.2
[2019-08-06 10:29] VITALS: BP 90/59; PULSE 79; RESP 14; TEMP 36.2
== END 2019-08-06 10:20 | disposition home or self-care (01) | DRG 788 ==
LOC: WPOUT 05:33 → WP 05:33
PROVIDERS: Obstetrics & Gynecology; Admitting Provider Obstetrics & Gynecology; PCP Family Medicine; Visit Provider Obstetrics & Gynecology
DX: O76 Abnormality in fetal heart rate and rhythm complicating labor and delivery (principal); O42.913 Preterm premature rupture of membranes, unspecified as to length of time between rupture and onset of labor, third trimester; O69.1XX0 Labor and delivery complicated by cord around neck, with compression, not applicable or unspecified; Z3A.36 36 weeks gestation of pregnancy; Z37.0 Single live birth; Z88.1 Allergy status to other antibiotic agents
CPT/HCPCS: 59025; 59050; 84112; 85025; 85027; 86850; 86900; 86901; 99218; J7030; J7120; A4216; G0378; J0702; J2405

== ENCOUNTER → 2020-02-08 17:15 | Outpatient (CLI) | payer OTHER, SELFPAY ==
[2019-08-04 05:45] VITALS: BMI 28.6
== END ==
PROVIDERS: PCP Family Medicine; Referring Provider Pediatrics; Visit Provider Pediatrics
DX: Z20.828 Contact with and (suspected) exposure to other viral communicable diseases (principal); Z11.59 Encounter for screening for other viral diseases
CPT/HCPCS: 87635; C9803; U0003

== ENCOUNTER 2020-08-29 04:02 | Emergency (ER) | payer OTHER, SELFPAY ==
[2019-08-04 05:45] VITALS: BMI 28.6
[2020-08-29 04:02] VITALS: BP 122/80; PULSE 80; RESP 18; TEMP 36; O2SAT 100; BMI 23.4
--- NOTE | 2020-08-29 04:55 | EX.ED.VIS.HA ---
HPI History of Present Illness Chief Complaint: Headache Informant: patient Onset/Context/Timing Onset: Weeks (1) Context: Gradual Timing: Waxes and wanes Quality -Headache: Positive for Similar Prior Headaches and Throbbing Location: Mostly retro-orbital, occasionally radiates to back of head. Switches sides Current Severity: Moderate Maximum Severity: Moderate Worsened by: Light Relieved by: Excedrin most of the time Associated Symptoms/Injury Associated Symptoms: Positive for Nausea, Blurred Vision, Photophobia and - (Vertigo/off balance this morning); Negative for Vomiting Injury - WARREN: Negative for Direct Trauma and Fall Narrative Narrative: Patient has a longstanding history of migraines that she states are associated with her hormones and cycle. 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 However this 1 has been fairly persistent for the past week, waxing and waning, becoming worse tonight, and as she got out of bed to get something for the headache, she noticed that she was off balance and felt a sensation of vertigo in her head as well. She has never had this before which gave her concern. She denies any speech problems, lateralizing neurologic symptoms otherwise, or diplopia. No syncope or loss of consciousness. No recent illness or injury. [facility] Medical History delivery delivered Migraines Home Medications vit,[id number] 1 tab PO DAILY 08/04/19 [History Last Taken 08/03/19 21:30] Allergy/AdvReac Type Severity Reaction Status Date / Time azithromycin [From Zithromax] Allergy Chest Verified 08/04/19 05:40 tightness doxycycline Allergy Chest Verified 08/04/19 05:40 tightness Social History Smoking Status: Never smoker ROS ROS ED Constitutional Constitutional ED: Denies chills or fever(s) Eyes Eyes: Reports blurry vision; Denies diplopia ENT ENT ED: Denies ear pain or sore throat Cardiovascular Cardiovascular: Denies chest pain or palpitations Respiratory/Chest Respiratory/Chest: Denies cough or dyspnea Gastrointestinal Gastrointestinal: Reports nausea and vomiting; Denies abdominal pain or diarrhea Genitourinary Genitourinary ED: Denies dysuria or urinary frequency Musculoskeletal Musculoskeletal: Denies back pain or myalgias Integumentary Denies abscess or rash Neurologic Neurologic: Reports as per HPI, headache(s) and vertigo; Denies paresthesias or weakness EXAM Physical Exam Const Vital Signs: 08/29/20 04:02 Temperature 96.8 F L Temperature Source Temporal Pulse Rate 80 Respiratory Rate 18 Blood Pressure 122/80 H Blood Pressure Mean 94 Pulse Ox 100 Oxygen Delivery Method Room Air HEENT Reports normocephalic and moist mucous membranes HEENT Narrative: Hard cerumen in both EACs, not able to visualize any part of either tympanic membrane, otherwise ear exam normal. atraumatic Eyes PERRL, EOMs intact bilaterally and conjunctivae normal Eyes Narrative: photophobia EOM: Negative for nystagmus Neck no lymphadenopathy, supple and no meningeal signs Resp normal respiratory effort and clear to auscultation bilaterally GI non-tender and non-distended Palpation: soft Extremity normal to inspection and full ROM Neuro oriented x3 and CN's II-XII intact bilaterally Sensorium / Orientation: awake and alert Coordination / Balance: [id number]-[id number] test normal and dgbu-cp-hpby test normal Speech: speech normal Gait (Neuro): normal gait Motor Exam: strength 5/5 throughout Psych mental status grossly normal Skin Lesions: no lesions Rashes: no rashes MDM MDM MDM Narrative Medical decision making narrative: I do not think this patient is having a stroke. Her history is consistent with a migraine headache, and it is possible to have vertigo with that. She states she has issues with cerumen in both ears, which is apparent on exam as I cannot visualize the tympanic membranes on either side as a result but there is no pain with pulling on the pinna, or symptoms to suggest she has a middle ear problem acutely. She was treated with IV fluids, Toradol, Reglan and on reevaluation she feels much better is keenly alert and asking to be discharged so she can go to work. Discharge Plan Triage Chief Complaint: Headache ED Provider: Tanner Saldana Dx/Rx/DC Orders Clinical Impression: Headache, migraine Instructions: ED, Migraine (Classical) Prescriptions: No Action vit,[id number] 1 TABLET tablet 1 tab PO DAILY RF: 0 Primary Care Provider: Elena Hawkins Referrals: Elena Hawkins MD [Primary Care Provider] - 3-5 Days if not improving Disposition Disposition: Home, self care
[2020-08-29] MEDS: Metoclopramide 10 MG/2 ML Vial IV (04:56)
[2020-08-29] MEDS: Ketorolac 30 MG/ML Syringe IV (04:58)
[2020-08-29 05:36] VITALS: BP 136/84; PULSE 78; RESP 18; O2SAT 100
== END 2020-08-29 05:36 | disposition home or self-care (01) ==
PROVIDERS: Emergency Provider Emergency Medicine; PCP Family Medicine
DX: G43.909 Migraine, unspecified, not intractable, without status migrainosus (principal)
CPT/HCPCS: 96361; 96374; 96375; 99283; J7030; A4216

== ENCOUNTER → 2021-01-01 10:19 | Outpatient (CLI) | payer OTHER, SELFPAY ==
[2021-01-01 12:20] LABS: hCG Titer Quant., Serum 161 mIU/mL (1-3)
== END ==
PROVIDERS: PCP Family Medicine; Referring Provider Obstetrics & Gynecology Reproductive Endocrinology; Visit Provider Obstetrics & Gynecology Reproductive Endocrinology
DX: Z32.00 Encounter for pregnancy test, result unknown (principal)
CPT/HCPCS: 36415; 84702

== ENCOUNTER → 2021-01-03 10:19 | Outpatient (CLI) | payer OTHER, SELFPAY ==
[2021-01-03 12:21] LABS: hCG Titer Quant., Serum 448 mIU/mL (1-3)
== END ==
PROVIDERS: PCP Family Medicine; Referring Provider Obstetrics & Gynecology Reproductive Endocrinology; Visit Provider Obstetrics & Gynecology Reproductive Endocrinology
DX: Z32.01 Encounter for pregnancy test, result positive (principal)
CPT/HCPCS: 36415; 84702

== ENCOUNTER → 2021-01-10 11:47 | Outpatient (CLI) | payer OTHER, SELFPAY ==
[2021-01-10 12:57] LABS: hCG Titer Quant., Serum 8504 mIU/mL (1-3)
== END ==
PROVIDERS: PCP Family Medicine; Referring Provider Obstetrics & Gynecology Reproductive Endocrinology; Visit Provider Obstetrics & Gynecology Reproductive Endocrinology
DX: Z32.01 Encounter for pregnancy test, result positive (principal)
CPT/HCPCS: 36415; 84702

== ENCOUNTER 2021-07-25 12:59 | Emergency (ER) | payer OTHER, SELFPAY ==
[2021-07-25 13:01] VITALS: BP 125/69; PULSE 90; RESP 16; TEMP 36.1; O2SAT 100; BMI 28.7
--- NOTE | 2021-07-25 13:28 | ED.VIS.DYS ---
HPI History of Present Illness Chief Complaint: Shortness of Breath Informant: patient Onset/Context/Timing Onset: Weeks (1) Context: gradual Timing: Waxes and wanes Quality: Positive for Dyspnea on exertion Worsened by: Lying flat Relieved by: - (Mucinex) Associated Symptoms cough, fever, sore throat and sweats; Negative for rhinorrhea or chills Chest Pain: Positive for Tightness Narrative Narrative: Patient presents with shortness of breath that has been getting worse over the past week. Patient is approximately 33 weeks . Patient states that she also went on a plane trip to [place] recently. Patient states that when she got off the plane of [place] she started having worsening cough and chest pain. Patient states that while she was in [place] her symptoms started to improve. Patient states that on the plane ride home she started having worsening cough. Patient admits to a low-grade fever of 100. Patient states her cough is worse whenever she lays flat. Patient states Mucinex seems to help. Patient admits to an episode of nausea and vomiting. Patient admits to an episode of diaphoresis last night. Patient admits to occasional sputum production. Patient admits to some shortness of breath. Patient also admits to some lightheadedness. PE Risk Factors: Positive for Recent travel; Negative for Cancer, OCP + Smoking + > 35, Prior DVT or PE, Recent immobilization and Recent surgery [facility] Medical History delivery delivered Migraines Home Medications vit,[id number] 1 tab PO DAILY 08/04/19 [History Last Taken 08/03/19 21:30] sertraline 25 mg PO DAILY 07/25/21 [History Last Taken Unknown] sertraline 50 mg PO DAILY 07/25/21 [History Last Taken Unknown] Allergy/AdvReac Type Severity Reaction Status Date / Time azithromycin [From Zithromax] Allergy Chest Verified 07/25/21 13:01 tightness doxycycline Allergy Chest Verified 07/25/21 13:01 tightness Social History Smoking Status: Never smoker ROS ROS ED Constitutional Constitutional ED: Reports fever(s); Denies chills Eyes Eyes: Denies blurry vision or change in vision ENT ENT ED: Reports sore throat; Denies rhinorrhea Cardiovascular Cardiovascular: Reports chest pain; Denies palpitations Respiratory/Chest Respiratory/Chest: Reports cough and dyspnea Gastrointestinal Gastrointestinal: Reports nausea and vomiting Genitourinary Genitourinary ED: Denies dysuria or hematuria Musculoskeletal Musculoskeletal: Denies back pain or neck pain Integumentary Denies abscess or rash Neurologic Neurologic: Reports weakness; Denies headache(s) Allergic/Immunologic Allergic/Immunologic ED: Denies mouth swelling or urticaria EXAM Physical Exam Const Vital Signs: 07/25/21 13:01 07/25/21 13:48 07/25/21 15:16 Temperature 96.9 F L Temperature Source Temporal Pulse Rate 90 89 Respiratory Rate 16 19 H Respiratory Effort Normal Respiratory Depth Normal Respiratory Pattern Normal Blood Pressure 125/69 H 101/79 Blood Pressure Mean 87 86 Pulse Ox 100 96 Oxygen Delivery Method Room Air Room Air Room Air 07/25/21 16:29 Temperature Temperature Source Pulse Rate 77 Respiratory Rate 19 H Respiratory Effort Respiratory Depth Respiratory Pattern Blood Pressure Blood Pressure Mean Pulse Ox 100 Oxygen Delivery Method Positive well nourished and well developed General Appearance ED: well developed HEENT Reports moist mucous membranes Neck supple and no JVD Resp normal respiratory effort and clear to auscultation bilaterally Cardio regular rate, regular rhythm and no murmurs GI normal to inspection, nondistended, normoactive bowel sounds and non-tender GI Narrative: There is a gravid uterus. There is no tenderness. Palpation: soft Extremity normal to inspection General Extremety ED: Negative for edema or tenderness General Extremity: Negative for edema Neuro oriented x3, CN's II-XII intact bilaterally and no sensory deficits noted Sensorium / Orientation: alert Motor Exam: strength 5/5 throughout Psych mental status grossly normal Skin no rashes or lesions noted MDM MDM MDM Narrative Medical decision making narrative: Patient was given IV fluids. EKG was obtained. On my interpretation, it showed a normal sinus rhythm with a rate of 90. MD interval, QRS interval, and QTc intervals were all normal. There is mild left axis deviation at -27. There are no acute ST or T wave changes. CBC shows a mild anemia with a hemoglobin of 10.6 hematocrit 31.5. PT with INR and PTT were normal. Comprehensive metabolic profile was essentially within normal limits. High-sensitivity troponin was normal. Lipase was normal. Urinalysis does not show any evidence of urinary tract infection. CTA of the chest was obtained. There is no evidence of pulmonary embolism. There is no evidence of arterial dissection. Patient was advised of her findings. Patient is feeling comfortable on reevaluation. Patient was instructed to follow-up with her primary care physician and [facility] as scheduled. Patient understood and was agreeable with the plan. All questions were answered. Lab Data Attestation: I reviewed the patient's lab results. Labs: Laboratory Results - last 24 hr 07/25/21 07/25/21 07/25/21 13:46 13:46 13:46 WBC 9.6 RBC 3.69 L Hgb 10.6 L Hct 31.5 L MCV 85.4 MCH 28.7 MCHC 33.7 RDW Std Deviation 40.0 RDW Coeff of Phill 13.1 Plt Count 365 MPV 9.4 Immature Gran % (Auto) 0.300 Neut % (Auto) 79.8 H Lymph % (Auto) 12.0 L [place] % (Auto) 5.3 Eos % (Auto) 2.1 Baso % (Auto) 0.5 Absolute Neuts (auto) 7.7 Absolute Lymphs (auto) 1.15 Nucleated RBC % 0 PT 13.0 INR 1.0 APTT 26.3 Sodium 137 Potassium 3.5 Chloride 108 H Carbon Dioxide 20.0 L Anion Gap 9 BUN 4 L Creatinine 0.71 Estim Creat Clear Calc 74.90 Est GFR (MDRD) Af Amer 117 Est GFR (MDRD) Non-Af 96 BUN/Creatinine Ratio 5.6 L Glucose 152 H Calcium 7.8 L Total Bilirubin 0.20 AST 15 ALT 14 Alkaline Phosphatase 129 H Troponin I High Sens < 3 L Total Protein 6.4 Albumin 2.0 L Globulin 4.4 H Albumin/Globulin Ratio 0.5 L Lipase 92 Urine Color Urine Clarity Urine pH Ur Specific [place] Urine Protein Urine Glucose (UA) Urine Ketones Urine Occult Blood Urine Nitrite Urine Bilirubin Urine Urobilinogen Ur Leukocyte Esterase Urine RBC Urine WBC Ur Squamous Epith Cells Urine Bacteria Urine Mucus 07/25/21 14:25 WBC RBC Hgb Hct MCV MCH MCHC RDW Std Deviation RDW Coeff of Phill Plt Count MPV Immature Gran % (Auto) Neut % (Auto) Lymph % (Auto) [place] % (Auto) Eos % (Auto) Baso % (Auto) Absolute Neuts (auto) Absolute Lymphs (auto) Nucleated RBC % PT INR APTT Sodium Potassium Chloride Carbon Dioxide Anion Gap BUN Creatinine Estim Creat Clear Calc Est GFR (MDRD) Af Amer Est GFR (MDRD) Non-Af BUN/Creatinine Ratio Glucose Calcium Total Bilirubin AST ALT Alkaline Phosphatase Troponin I High Sens Total Protein Albumin Globulin Albumin/Globulin Ratio Lipase Urine Color Yellow Urine Clarity Clear Urine pH 6.5 Ur Specific [place] 1.010 Urine Protein Negative Urine Glucose (UA) Normal Urine Ketones Negative Urine Occult Blood Negative Urine Nitrite Negative Urine Bilirubin Negative Urine Urobilinogen Normal Ur Leukocyte Esterase Negative Urine RBC 0 SEEN Urine WBC 0 SEEN Ur Squamous Epith Cells 0 SEEN Urine Bacteria 0 SEEN Urine Mucus 0 SEEN Radiography CTA PE Study: No Evidence of PE and No Evidence of Dissection Diagnostic Testing: Clinical Impression(s) from Imaging Studies Chest CTA 07/25/21 13:34 IMPRESSION: Normal CTA chest examination, without a demonstrated pulmonary embolism or arterial dissection. Electronically Signed: Leonard Arriaga MD at 14:34 EDT , EKG Initial EKG: Attestation: I personally reviewed and interpreted this EKG as follows: Interpretation: Sinus Rhythm (90) and No Acute Injury Pattern Discharge Plan Triage Chief Complaint: Shortness of Breath Other Complaint: Cough ED Provider: Schuyler Branham Dx/Rx/DC Orders Clinical Impression: Dyspnea, Viral illness Instructions: ED Dyspnea, ED URI, Viral, No Abx (Adult) Prescriptions: No Action vit,[id number] 1 TABLET tablet 1 tab PO DAILY RF: 0 sertraline 25 mg tablet 25 mg PO DAILY RF: 0 sertraline 50 mg tablet 50 mg PO DAILY RF: 0 Primary Care Provider: Elena Hawkins Referrals: Elena Hawkins MD [Primary Care Provider] - 5-7 Days Kristyn Caceres DO [STAFF PHYSICIAN] - 3-5 Days Disposition Disposition: Home, Self Care Discharge Date/Time: 07/25/21 16:32
--- NOTE | 2021-07-25 13:34 | EKG12_ITS ---
Test Reason : COUGH Blood Pressure : / mmHG Vent. Rate : 090 BPM Atrial Rate : 090 BPM P-R Int : 154 ms QRS Dur : 076 ms QT Int : 358 ms P-R-T Axes : 063 -27 049 degrees QTc Int : 437 ms Normal sinus rhythm Normal ECG Confirmed by KARINA THOMAS, LEEAZAR ([id number]), associate editor TRISTA HERNANDEZ ([id number]) on 07/28/2021 1:58:26 PM Referred By: CHARLA Confirmed By:MARCOS COLLINS MD
--- NOTE | 2021-07-25 13:34 | CT_ITS ---
STUDY: CTA CHEST REASON FOR EXAM: Female, 41 years old. dyspnea, recent flight, 33 week preg. The patient was shielded appropriately. RADIATION DOSAGE (If Supplied By Facility): CTDIvol = ( 9.27 ) mGy, DLP = ( 237.14 ) mGycm TECHNIQUE: The examination was performed with the intravenous administration of isovue 370 100ml. Post-processing of the angiographic images was performed, with multiplanar reformation and 3D reconstruction. Individualized dose optimization techniques were used for this CT. COMPARISON: Comparison is made with prior study dated 08/03/2018. FINDINGS: Normal enhancement of the main pulmonary artery and right and left pulmonary arteries. Normal enhancement of the bilateral peripheral pulmonary arteries. There is no demonstrated pulmonary embolism. Normal thoracic aorta and visualized great vessels. There is no demonstrated aortic dissection. Normal heart and pericardium. Normal mediastinum. Normal hilar regions. Normal visualized trachea and bronchi. The lungs are well expanded. Normal pulmonary parenchyma. Normal pleura. Normal chest wall structures. Normal osseous structures. Normal visualized upper abdomen. CT/CTA Chest W/WO Contrast IMPRESSION: Normal CTA chest examination, without a demonstrated pulmonary embolism or arterial dissection. Electronically Signed: Leonard Arriaga MD at 14:34 EDT ,
[2021-07-25 13:48] VITALS: O2SAT 100
[2021-07-25] MEDS: 0.9% Normal Saline 1,000 ML 1000 ML IV (13:48)
[2021-07-25 13:54] LABS: Absolute Lymphocyte Count 1.15 X10^3/uL (0.83-4.51); Absolute Neutrophil Count 7.7 X10^3/uL (2.0-7.7); Basophil# 0.05 X10^3/uL; Basophil% 0.5 % (0-1); Eosinophils% 2.1 % (0-5); Hematocrit 31.5 % (37-47); Hemoglobin 10.6 g/dL (12.0-15.0); Lymphocyte # 1.15 X10^3/ul (0.83-4.51); Mean Corp Hgb Conc 33.7 g/dL (32-36); Mean Corpuscular Hgb 28.7 pg (27.0-32.0); Mean Corpuscular Volume 85.4 fL (81-99); Mean Platelet Vol. 9.4 fl (6.2-12.0); Monocyte# 0.51 X10^3/uL; Monocyte% 5.3 % (0-10); NRBC Flagged by Analyzer 0 % (0-5); Neutrophil # 7.67 X10^3/uL (2.7-7.7); Neutrophil % 79.8 % (47-70); Platelet Count 365 K/mm3 (150-450); RBC Distribution Width CV 13.1 % (11.6-14.6); Red Blood Count 3.69 M/mm3 (4.2-5.4); White Blood Count 9.6 K/mm3 (4.4-11.0)
[2021-07-25 14:04] LABS: Partial Thromboplast Time 26.3 Seconds (24.1-36.2)
[2021-07-25 14:12] LABS: ALB/GLOB Ratio 0.5 RATIO (0.9-2.4); AST(SGOT) 15 U/L (15-37); Alanine Aminotransfer ALT/SGPT 14 U/L (13-56); Alkaline Phosphatase 129 U/L (45-117); Anion Gap 9 (5-15); BUN 4 mg/dL (7-18); BUN/Creat Ratio 5.6 RATIO (10-20); Calcium,Total 7.8 mg/dL (8.5-10.1); Chloride 108 mmol/L (98-107); Creatinine, Serum 0.71 mg/dL (0.55-1.02); EST Glomerular Filtration Rate 96 mL/min (>60); Est Glom Filt Rate - Afr Amer 117 mL/min (>60); Globulin 4.4 g/dL (2.2-4.2); Glucose 152 mg/dL (74-106); Lipase 92 U/L (73-393); Potassium 3.5 mmol/L (3.5-5.1); Protein, Total 6.4 g/dL (6.4-8.2); Sodium Level 137 mmol/L (136-145); Troponin-I HS < 3 pg/mL (3.0-54.0)
[2021-07-25 14:30] LABS: Bacteria 0 SEEN /hpf (None Seen); Mucous, Urine 0 SEEN /hpf (<or=2+); Red Blood Cells-Urine 0 SEEN /hpf (0-5); Squamous Epithelial Cells - UA 0 SEEN /hpf (5-10); White Blood Cells 0 SEEN /hpf (0-5)
[2021-07-25 14:35] LABS: Color, Urine Yellow (Yellow); Glucose, Dipstick Normal (Normal); Ketone-Dipstick Negative (Negative); Leukocyte Esterase-Dipstick Negative /ul (Negative); Nitrite-Dipstick Negative (Negative); Occult Blood-Urine Negative /ul (Negative); Protein-Dipstick Negative (Negative); Urine Bilirubin Dipstick Negative (Negative); Urine Clarity Clear (Clear); Urine Urobilinogen Normal (Normal); Urine pH 6.5 (5.0 - 8.0)
[2021-07-25 15:16] VITALS: BP 101/79; PULSE 89; RESP 19; O2SAT 96
[2021-07-25 16:29] VITALS: PULSE 77; RESP 19; O2SAT 100
== END 2021-07-25 16:32 | disposition home or self-care (01) ==
PROVIDERS: Emergency Provider Emergency Medicine; PCP Family Medicine; Visit Provider Emergency Medicine
DX: O98.513 Other viral diseases complicating pregnancy, third trimester (principal); B34.9 Viral infection, unspecified; Z3A.33 33 weeks gestation of pregnancy; R11.2 Nausea with vomiting, unspecified; R61 Generalized hyperhidrosis; R05.9 Cough, unspecified; R42 Dizziness and giddiness; R06.00 Dyspnea, unspecified; O99.013 Anemia complicating pregnancy, third trimester; D64.9 Anemia, unspecified; O09.523 Supervision of elderly multigravida, third trimester
CPT/HCPCS: 71275; 80053; 81001; 83690; 84484; 85025; 85610; 85730; 93005; 96360; 99284; J7030; Q9967; A4216

== ENCOUNTER 2021-09-02 01:25 | Inpatient (IN) | payer OTHER, SELFPAY ==
[2021-09-02] VITALS (19 sets, daily range): BP systolic 88–128; BP diastolic 36–81; PULSE 77–105; RESP 11–20; TEMP 36.1–36.8; O2SAT 98–100; BMI 28.7
--- NOTE | 2021-09-02 01:40 | PCM.HP.OB ---
HPI - General General Date of Admission: 09/02/21 HPI Narrative ARIAN SOSA, is a 41 F presents w/ c/o contractions, SROM and h/o previous c/s. No VB. Maternal Data Information Final ANTONIO: 09/11/21 Gestational age: 38 5/7 PFSH PFS Medical History delivery delivered Migraines Home Medications vit,[id number] 1 tab PO DAILY 08/04/19 [History Last Taken 08/03/19 21:30] sertraline 25 mg PO DAILY 07/25/21 [History Last Taken Unknown] sertraline 50 mg PO DAILY 07/25/21 [History Last Taken Unknown] Allergy/AdvReac Type Severity Reaction Status Date / Time azithromycin [From Zithromax] Allergy Chest Verified 09/02/21 01:38 tightness doxycycline Allergy Chest Verified 09/02/21 01:38 tightness Social History Smoking Status: Never smoker History Elective abortions Hx Para 1 Spontaneous abortions Hx # Term Pregnancies Ectopic pregnancies Hx # Pregnancies Multiple births # of living children ROS Constitutional Constitutional: Denies fatigue, fever(s) or malaise Eyes Eyes: Denies change in vision ENT HEENT: Denies dizziness or headache(s) Cardiovascular Cardiovascular: Denies chest pain, dyspnea or lightheadedness Respiratory/Chest Respiratory/Chest: Denies cough or dyspnea Gastrointestinal Gastrointestinal: Denies change in bowel habits Genitourinary Genitourinary: Denies burning urination or genital lesions Integumentary Integumentary: Denies rash Neurologic Neurologic: Denies confusion, dizziness, headache(s), numbness or weakness Vital Signs Vital Signs Vital Signs: Weight Weight: 66.7 kg Body Mass Index (BMI) 28.7 Physical Exam Const alert and no apparent distress General Appearance: cooperative HEENT normocephalic Resp normal respiratory effort Cardio regular rate GI soft to palpation GI Narrative: gravid, nontender, appropriate for gestational age Extremity no calf tenderness General Extremity: edema Skin no wounds Rashes: No rashes noted Psych activity/motor behavior normal Labs Labs Labs: Blood Type A POSITIVE Antibody Screen NEGATIVE Hct 36.7 % (37-47) L Hgb 11.6 g/dL (12.0-15.0) L Rubella IgG Antibody Pending Rhogam given: No Assessment & Plan (1) 38 weeks gestation of : (2) High risk multigravida in third trimester: PLAN: Benefits alternatives to repeat section of been discussed with the patient, her questions were answered to her satisfaction she desires to proceed. We will proceed as soon as possible given patient is uncomfortable and in active labor. Patient does not want to elect for tubal sterilization today. (3) Breech presentation: (4) Previous delivery affecting : (5) Advanced maternal age (AMA), 40 years or greater:
[2021-09-02] MEDS: Lactated Ringers 1,000 ML 999 ML IV (01:45)
[2021-09-02] MEDS: Sodium Citrate/Citric Acid 30 ML UDC PO (01:51)
[2021-09-02] MEDS: Acetaminophen 500 MG Tablet 1000 MG PO ×4 (01:51→20:06)
[2021-09-02 01:55] LABS: Absolute Lymphocyte Count 1.98 X10^3/uL (0.83-4.51); Absolute Neutrophil Count 6.7 X10^3/uL (2.0-7.7); Basophil# 0.05 X10^3/uL; Basophil% 0.5 % (0-1); Eosinophil# 0.12 X10^3/uL; Eosinophils% 1.2 % (0-5); Hematocrit 36.7 % (37-47); Hemoglobin 11.6 g/dL (12.0-15.0); Lymphocyte # 1.98 X10^3/ul (0.83-4.51); Lymphocyte % 20.4 % (19-41); Mean Corp Hgb Conc 31.6 g/dL (32-36); Mean Corpuscular Hgb 26.3 pg (27.0-32.0); Mean Corpuscular Volume 83.2 fL (81-99); Monocyte# 0.77 X10^3/uL; Monocyte% 7.9 % (0-10); NRBC Flagged by Analyzer 0 % (0-5); Neutrophil # 6.74 X10^3/uL (2.7-7.7); Neutrophil % 69.7 % (47-70); Platelet Count 423 K/mm3 (150-450); RBC Distribution Width CV 13.8 % (11.6-14.6); RBC Distribution Width SD 41.7 fl (35.1-43.9); Red Blood Count 4.41 M/mm3 (4.2-5.4); White Blood Count 9.7 K/mm3 (4.4-11.0)
[2021-09-02] MEDS: Cefazolin 2 GM in 0.9% Normal Saline 100 ML IV (01:58)
[2021-09-02] MEDS: Lactated Ringers 1,000 ML 150 ML IV (02:00)
--- NOTE | 2021-09-02 02:07 | EX.PCM.OBRPT ---
Assessment & Plan (1) Breech presentation: (2) Active labor at term: (3) Advanced maternal age (AMA), 40 years or greater: (4) Previous delivery affecting : (5) 38 weeks gestation of : (6) High risk multigravida in third trimester: Maternal Data Information Final ANTONIO: 09/11/21 Gestational age: 38 5/7 Details Operative Information Date of Procedure: 09/02/21 Pre-Operative Diagnosis: labor, breech, previous c/s Post-Operative Diagnosis: same Classification: DAISY Procedure Type: low transverse air hammer stripper #1: Jody Carmona Type of Anesthesia: Spinal Anesthesiologist: Bart De Jesus Special Medications: duramorph Antibiotic Given: Ancef 2 grams IV x1 Drain: Pruitt to straight drain Estimated Blood Loss: 1000 Fluids Replaced: 1300 Procedure Start Time: 02:18 Time of Delivery: : Findings Description of Procedure: The patient was taken to the operating room. She was prepped and draped in the dorsal supine position with a leftward tilt. A Pfannenstiel skin incision was made approximately 2 cm above the symphysis pubis and carried through to underlying layer fascia with the scalpel. The fascia was incised incised in the midline and extended laterally with the Butler scissors. The fascia was dissected off the rectus muscles with blunt and sharp dissection. The rectus muscles were in the midline and the peritoneum was entered bluntly. The peritoneal incision was stretched and the bladder blade was placed. Was noted that there was not a lot of stretch to the tissue. The fascia and skin were extended slightly. The rectus muscles were stretched again. The uterine incision was made in a low transverse fashion with the scalpel and extended superiorly and inferiorly with blunt dissection. No significant fluid was left in the uterus. The men's buttocks were brought out through the incision. The was brought to back up the legs were swept out individually and then the arms. The head was then delivered with gentle traction on the maxilla and fundal pressure to keep the head flexed. The delivery of the was accomplished in less than 1 minute.. The mouth and nares were bulb suctioned. The cord was clamped and cut as the infant was stimulated. Cord clamping was not delayed because the was not immediately vigorous but by the time he was handed off and the nurses were carrying it to the warmer began to cry more vigorously. The infant was handed off to the waiting nursing staff. The placenta was delivered with fundal massage and gentle traction in the standard fashion. The uterus was exteriorized and cleared of all clots and debris. The uterine incision was closed with #1 Vicryl in a running locked fashion. It was noted that there was an extension on the left lateral cervix. This was oversewn with #1 Vicryl suture. However, it continued to bleed I placed several [id number]'s and there is still active bleeding. I had to take out the sutures originally placed because I noted that there was a defect even lower than where it originally started the closure. This was reapproximated with 0 Vicryl suture in a running locked fashion. There is still very active bleeding between the sutures and the apex of the incision. 2 sutures had to be placed all the way through the posterior uterus and around the lateral side of the broad ligament to control the bleeding. Care was taken that there was no bowel behind the uterus. The area was examined several times to make sure there was no excess banding hematoma. A second imbricating layer of #1 Vicryl suture was used. Several more [id number] sutures were needed in the midline to control bleeding from a sinus. The uterus was placed back into the peritoneal cavity and hemostasis was again confirmed. The rectus muscles were examined and any bleeding was Bovie cauterized. Some fibrillar was placed in the left lateral corner of the uterine incision. Some Surya was placed over the uterine incision. The parietal peritoneum and rectus muscles were closed en bloc with an 0 Vicryl running suture. Any bleeding was Bovie cauterized and some Surya was placed over this layer as well. The rectus fascia was examined and any bleeding was Bovie cauterized and the rectus fascia was closed with 1 Vicryl suture in a running standard fashion. The subcutaneous tissue was examining and any bleeding was Bovie cauterized. The subcutaneous tissue was reapproximated with 3-0 Vicryl suture. The skin was closed in a subcuticular fashion by the TEST TECHNICIAN with me present in the labor and delivery suite. I performed the remainder of the procedure with assistance. All sponge, lap, and needle counts were correct. The patient was taken to her room for recovery in a stable condition. Presentation: Positive for Evans Breech Amniotic Membrane Rupture Type: Spontaneous Amniotic Fluid Description: Clear Placental Delivery Description: Expressed Placenta Disposition: [facility] Specimen(s) Sent to Pathology: none Cord Vessel Description: 3 Vessels Cord Entanglement: None Infant A Gender: Male (1 minute): 8 (5 minute): 9 Delayed Cord Clamping: No Complications Complications: none Admit VTE Documentation VTE Present on Admission: No VTE Mechan Device Prophylaxis: SCD's VTE Pharm Prophylaxis Ordered: No Reason Prophylaxis Not Ordered: Procedure Not Indicated
[2021-09-02] MEDS: Oxytocin 30 units/NS 500 ml 30 UNITS/500 ML IV.SOLN 167 UNITS IV (03:30)
[2021-09-02] MEDS: Ketorolac 30 MG/ML Syringe IV ×4 (04:44→22:10)
[2021-09-02] MEDS: 0.9% Saline Lock 10 ML Syringe IV ×4 (04:44→22:10)
[2021-09-02] MEDS: Lactated Ringers 1,000 ML 100 ML IV (07:16)
[2021-09-02] MEDS: Senna/Docusate Sodium 1 Tablet PO (09:35)
[2021-09-02 10:26] LABS: Rubella IgG Reactive (Nonreactive)
[2021-09-02 13:23] LABS: Hematocrit 31.8 % (37-47); Hemoglobin 10.1 g/dL (12.0-15.0); Mean Corp Hgb Conc 31.8 g/dL (32-36); Mean Corpuscular Hgb 26.9 pg (27.0-32.0); Mean Corpuscular Volume 84.6 fL (81-99); Platelet Count 328 K/mm3 (150-450); RBC Distribution Width CV 13.9 % (11.6-14.6); RBC Distribution Width SD 42.5 fl (35.1-43.9); Red Blood Count 3.76 M/mm3 (4.2-5.4); White Blood Count 11.2 K/mm3 (4.4-11.0)
[2021-09-02] MEDS: Sertraline 50 MG Tablet 75 MG PO (22:09)
[2021-09-03] MEDS: oxyCODONE 5 MG Tablet PO ×2 (01:57→11:39)
[2021-09-03] MEDS: Acetaminophen 500 MG Tablet 1000 MG PO ×4 (02:32→19:59)
[2021-09-03 02:33] VITALS: BP 110/77; PULSE 113; RESP 18; TEMP 36.7; O2SAT 99
[2021-09-03] MEDS: Ibuprofen 600 MG Tablet PO ×4 (04:03→23:15)
[2021-09-03 05:58] LABS: Hematocrit 25.9 % (37-47); Hemoglobin 8.1 g/dL (12.0-15.0); Mean Corp Hgb Conc 31.3 g/dL (32-36); Mean Corpuscular Hgb 26.7 pg (27.0-32.0); Mean Corpuscular Volume 85.5 fL (81-99); Mean Platelet Vol. 9.7 fl (6.2-12.0); Platelet Count 282 K/mm3 (150-450); RBC Distribution Width CV 14.2 % (11.6-14.6); RBC Distribution Width SD 43.2 fl (35.1-43.9); Red Blood Count 3.03 M/mm3 (4.2-5.4); White Blood Count 10.1 K/mm3 (4.4-11.0)
--- NOTE | 2021-09-03 07:42 | PCM.PN.OB ---
Subjective Subjective Is doing well this morning. She is ambulating and voiding without difficulty. She has some right shoulder discomfort that is improved with pain medication as well as a heating pad. Abdominal pain is minimal and well controlled. She is tolerating regular diet without nausea or vomiting. She denies chest pain, shortness of breath, palpitations, leg pain. Lochia is normal. She desires to stay another night. Objective Data Objective Data Vital Signs: Vital Signs Temp Pulse Resp BP Pulse Ox 98.1 F 113 H 18 110/77 99 09/03/21 02:33 09/03/21 02:33 09/03/21 02:33 09/03/21 02:33 09/03/21 02:33 Oxygen Delivery Method Room Air Weight: 147 lb 0.773 oz Body Mass Index (BMI) 28.7 Intake & Output: Intake and Output for Last 24 Hours 09/01/21 09/02/21 09/03/21 23:59 23:59 23:59 Intake Total 3374.0 / 3374.0 Output Total 800 / 800 Balance 2574.0 / 2574.0 Lab / Micro Data Result Diagrams: 09/03/21 05:50 Labs: Laboratory Results - last 24 hr 09/02/21 01:45: Rubella IgG Antibody Reactive 09/02/21 13:10: WBC 11.2 H, RBC 3.76 L, Hgb 10.1 L, Hct 31.8 L, MCV 84.6, MCH 26.9 L, MCHC 31.8 L, RDW Std Deviation 42.5, RDW Coeff of Phill 13.9, Plt Count 328, MPV 10.0 09/03/21 05:50: WBC 10.1, RBC 3.03 L, Hgb 8.1 L, Hct 25.9 L, MCV 85.5, MCH 26.7 L, MCHC 31.3 L, RDW Std Deviation 43.2, RDW Coeff of Phill 14.2, Plt Count 282, MPV 9.7 Micro: Microbiology 09/02/21 01:45 Nasal Secretion SARS-CoV-2 Antigen (Rapid) - Final Physical Exam Const alert and no apparent distress Constitutional Narrative: Currently nursing infant. General Appearance: comfortable Assessment & Plan (1) Delivery by section: PLAN: She is postop day 1 from a repeat section. She is doing well. Vital signs are stable. Reviewed anemia and discussed iron on discharge. She is asymptomatic from her anemia. Routine postoperative care. Anticipate discharge tomorrow. (2) Acute on chronic blood loss anemia:
[2021-09-03 07:46] VITALS: BP 106/66; PULSE 79; RESP 18; TEMP 36.7; O2SAT 99
[2021-09-03] MEDS: Senna/Docusate Sodium 1 Tablet PO (09:08)
[2021-09-03 14:30] VITALS: BP 104/65; PULSE 83; RESP 18; TEMP 36.5
[2021-09-03 19:55] VITALS: BP 107/68; PULSE 97; RESP 16; TEMP 36.7; O2SAT 97
[2021-09-03] MEDS: Sertraline 50 MG Tablet 75 MG PO (22:01)
[2021-09-04 02:35] VITALS: BP 122/78; PULSE 80; RESP 18; TEMP 36.6; O2SAT 97
[2021-09-04] MEDS: Acetaminophen 500 MG Tablet 1000 MG PO ×2 (02:36→08:37)
[2021-09-04] MEDS: oxyCODONE 5 MG Tablet PO (02:47)
[2021-09-04] MEDS: Ibuprofen 600 MG Tablet PO (06:03)
[2021-09-04 08:00] VITALS: BP 116/68; PULSE 78; RESP 18; TEMP 36.4; O2SAT 97
--- NOTE | 2021-09-04 09:29 | PCM.PN.OB ---
Subjective Subjective Doing well. Pain is well controlled. She is ambulating and voiding. Tolerating regular diet without nausea or vomiting. She denies lightheadedness, dizziness, chest pain, shortness of breath, leg pain. Lochia is normal. She is breast-feeding without complaints. Her shoulder pain has improved. She desires discharge today. Objective Data Objective Data Vital Signs: Vital Signs Temp Pulse Resp BP Pulse Ox 97.6 F L 78 18 116/68 97 09/04/21 08:00 09/04/21 08:00 09/04/21 08:00 09/04/21 08:00 09/04/21 08:00 Oxygen Delivery Method Room Air Weight: 147 lb 0.773 oz Body Mass Index (BMI) 28.7 Intake & Output: Intake and Output for Last 24 Hours 09/02/21 09/03/21 09/04/21 23:59 23:59 23:59 Intake Total 3374.0 / 3374.0 Output Total 800 / 800 Balance 2574.0 / 2574.0 Lab / Micro Data Result Diagrams: 09/03/21 05:50 Micro: Microbiology 09/02/21 01:45 Nasal Secretion SARS-CoV-2 Antigen (Rapid) - Final Physical Exam Const alert and no apparent distress General Appearance: comfortable HEENT normocephalic Resp normal respiratory effort GI soft to palpation and non-distended GI Narrative: ATTP, dressing intact Extremity normal to inspection Assessment & Plan (1) Acute on chronic blood loss anemia: (2) Delivery by section: PLAN: POD#2 and doing well. Desires discharge today. Meeting milestones for going home. Reviewed discharge instructions. Follow up next week for incision check.
--- NOTE | 2021-09-04 09:33 | DCINST_ITS ---
Discharge Instructions Diet Discharge Diet: No restrictions Activity Discharge Activity: May Not Drive May resume sexual activity in: 6 weeks Ice area for (Minutes): 15 Weight Bearing Status: Weight bearing as tolerated Lifting Restrictions: nothing heavier than baby Dressing / Incision Call your doctor if your incision/area has: Continuous Slow Oozing, Sudden Increased Bleeding, Increased Pain/ Swelling, Increased Redness, Foul Smelling Discharge and Swelling at the incision site Call your doctor if you observe: Fever of 101 or Higher, Coldness, Increased Pain, Numbness or Tingling, Change in Color, Inability to urinate, Inability to have a bowel movement, Using more than 1 pad per hour, Shortness of breath, Dizziness, Fainting spells, Swelling in the ankles, Chest pain, Increased palpitations (irregular heartbeat), Calf discomfort and Uncontrolled pain Suture Line Care: Avoid Pulling/Pushing and Avoid Pinching/Bending Remove Dressing in: 4 days Cleanse incision/area with: Soap & Water Follow Up Care When: 1 week incision check 6 week exam Test Results: Test results from this visit will be discussed in further detail a t your follow-up appointment, if applicable. Discharge Plan Admission Admit Date/Time: 09/02/21 01:25 Primary Reason for Your Visit: delivery Attending Provider: Brandi Ponce Primary Care Provider: Elena Hawkins Instructions Patient Instructions: After a Discharge Orders/Prescriptions Prescriptions: New oxycodone-acetaminophen [Percocet] 5-325 mg tablet 1 tab PO Q6H PRN (Reason: pain) 7 Days Qty: 15 RF: 0 ibuprofen 600 mg tablet 600 mg PO Q6H PRN (Reason: pain) Qty: 30 RF: 0 docusate sodium [Colace] 100 mg capsule 100 mg PO BID Qty: 30 RF: 0 Continued vit,[id number] 1 TABLET tablet 1 tab PO DAILY RF: 0 sertraline 25 mg tablet 25 mg PO DAILY RF: 0 sertraline 50 mg tablet 50 mg PO DAILY RF: 0 Referrals / Follow Up: Elena Hawkins MD [Primary Care Provider] - Disposition Disposition (needs filled in before D/C Order can be placed): Home, Self Care
--- NOTE | 2021-09-04 11:20 | CASEMGMT ---
Social work Assessment Reason for Assessment: Post Depression and depression SW spoke to patient's RN, Ilda, and the RN reported that patient is appropriate with nb and she has no concerns. 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 Patient reports that breast feeding is going good MOB's other children: Kimberley, age 14 and Case age 2 years of age Housing: Patient and the FOB reside in a house with their 3 children and patient's 16 year old niece. Supplies: Patient reports that she has all the supplies including carseat, bassinet, cribs and diapers. Supports: Patient said that her support includes her 3 sisters (1 is moving to [place] in 2 days), her and mom as well as close friends. Education Level: Patient reports she graduated from high school, college and has her masters degree. Patient reports no learning issues. Employment: Patient is employed by [employer]. 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 Patient reports she enjoys her job. Patient will be taking the summer and fall off work to be home with the nb. Agency Involvement: Patient reports no WIC, JFS, HMG, Counseling, Legal or CSB issues. Patient said that her niece, who is living with them, has an GAL (bondactor machine operator) who mob reports she has contact with. FOB: Sonny Time Together: Together 2017 and since 2018 Involved at the : FOB said that he will be involved with the nb Employment: FOB is employed at [employer] as an Multicut Line Operator. He will be off until Wednesday. FOB reports that he is father to Sin, age 2. and stepfather to Kimberley. FOB MH/AOD/ Domestic Violence: FOB reports no MH/AOD and DV issues or concerns. Maternal Mental Health: Patient said that after her son, Sin, at 2-3 months she was having thoughts that were crazy. Patient elaborated that she was concerned about her daughter driving the car (age 12) and hitting Case, that she needed to move the microwave so case wouldn't be exposed to radiation, and her leaving Case in a hard car. Patient said that she knew that the thoughts were not normal so she called [facility] and began seeing a psychiatrist. Patient said that she is currently on 75 mg Zoloft which works well. Patient said that she had previously been on other other medication but this is working the best. Patient was able to recognize and reported I feel so much better this time in comparison to her post period with her son. Patient plans to continue to take the Zoloft as prescribed and reports that she has a follow up with her psychiatrist at the end of September to ensure the medication is working effectively. Patient reports that she has no SI/HI. Patient reports follow up with her psychiatrist every 3 months and plans to continue the Zoloft. Patient said that she can't recall her psychiatrist name except it has a z. Patient sees her psychiatrist via remote. Patient was educated on PPD, Safe Sleeping, Shaken Baby. Patient reports that she does not drink alcohol or use tobacco. When SW entered the room patient was at the nb's bassinet and smiling and commenting on how handsome the nb is. Patient smiled throughout the assessment and voiced she is feeling better than when she had her son, which was during covid. Patient and the fob were able to joke and patient was appropriate in her emotional responses and appeared very comfortable with the fob. Patient was provided with resource list that included phone numbers for PPD support and web sites for PPAnxiety. Patient was also provided with information on help me grow and counseling resources in the resource packet. Plan: Home at discharge. Janeth DYKES
--- NOTE | 2021-09-10 11:28 | NURSING ---
Mother states doing well on follow up visit with Kisha AMOR. Baby nursing well and no symptoms of high BP or Bleeding problems and loved all her nurses
== END 2021-09-04 11:13 | disposition home or self-care (01) | DRG 787 ==
PROVIDERS: Admitting Provider Obstetrics & Gynecology; PCP Family Medicine; Visit Provider Obstetrics & Gynecology
DX: O34.219 Maternal care for unspecified type scar from previous cesarean delivery (principal); D62 Acute posthemorrhagic anemia; O32.1XX0 Maternal care for breech presentation, not applicable or unspecified; Z37.0 Single live birth; Z3A.38 38 weeks gestation of pregnancy; O90.81 Anemia of the puerperium
CPT/HCPCS: 59025; 59050; 85025; 85027; 86762; 86850; 86900; 86901; 87426; 99218; J7120; A4216; G0378; J2405

== ENCOUNTER → 2022-12-24 | Outpatient (CLI) | payer BC, SELFPAY ==
[2022-12-24 18:28] LABS: hCG Titer Quant., Serum 254 mIU/mL (1-3)
== END | disposition home or self-care (01) ==
LOC: MTLAB 14:53
PROVIDERS: PCP Family Medicine; Visit Provider Obstetrics & Gynecology Reproductive Endocrinology
DX: Z32.00 Encounter for pregnancy test, result unknown (principal)
CPT/HCPCS: 36415; 84702

== ENCOUNTER → 2022-12-28 | Outpatient (CLI) | payer BC, SELFPAY ==
[2022-12-28 16:15] LABS: hCG Titer Quant., Serum 1305 mIU/mL (1-3)
== END | disposition home or self-care (01) ==
LOC: MTLAB 14:55
PROVIDERS: PCP Family Medicine; Referring Provider Obstetrics & Gynecology Reproductive Endocrinology; Visit Provider Obstetrics & Gynecology Reproductive Endocrinology
DX: Z32.00 Encounter for pregnancy test, result unknown (principal)
CPT/HCPCS: 36415; 84702

== ENCOUNTER 2023-08-04 14:45 | Outpatient (CLI) | payer BC, SELFPAY ==
[2023-08-04 15:05] VITALS: BP 119/68; PULSE 91; RESP 16; TEMP 36.6; O2SAT 99
[2023-08-04 15:14] VITALS: BMI 29.7
[2023-08-04] MEDS: 0.9% Saline Lock 10 ML Syringe IV ×2 (15:30→19:30)
[2023-08-04 15:45] LABS: Absolute Lymphocyte Count 1.73 X10^3/uL (0.83-4.51); Absolute Neutrophil Count 5.6 X10^3/uL (2.0-7.7); Basophil# 0.02 X10^3/uL; Basophil% 0.2 % (0-1); Eosinophil# 0.09 X10^3/uL; Eosinophils% 1.1 % (0-5); Hematocrit 32.9 % (37-47); Lymphocyte # 1.73 X10^3/ul (0.83-4.51); Lymphocyte % 21.2 % (19-41); Mean Corp Hgb Conc 33.4 g/dL (32-36); Mean Corpuscular Hgb 28.7 pg (27.0-32.0); Mean Corpuscular Volume 85.9 fL (81-99); Mean Platelet Vol. 10.1 fl (6.2-12.0); Monocyte# 0.71 X10^3/uL; Monocyte% 8.7 % (0-10); NRBC Flagged by Analyzer 0 % (0-5); Neutrophil % 68.6 % (47-70); Platelet Count 331 K/mm3 (150-450); RBC Distribution Width CV 12.9 % (11.6-14.6); Red Blood Count 3.83 M/mm3 (4.2-5.4); White Blood Count 8.2 K/mm3 (4.4-11.0)
[2023-08-04] MEDS: Betamethasone/Betamethasone 30 MG/5 ML Vial 12 MG IM (15:48)
[2023-08-04 15:55] LABS: Prothrombin Time (Protime)PT. 13.3 SECONDS (11.7-14.9)
[2023-08-04 15:56] LABS: Partial Thromboplast Time 25.5 Seconds (24.1-36.2)
[2023-08-04 16:13] LABS: Fibrinogen 530 mg/dl (203-444)
[2023-08-04 16:46] LABS: Syphilis Antibodies Non-reactive
--- NOTE | 2023-08-04 18:59 | PN.OBGYN_ITS ---
Subjective Subjective Patient in triage for extended monitoring for vaginal bleeding. Patient seen at bedside. Denies any abdominal pain or regular contractions. Positive movement. Objective Data Objective Data Vital Signs: Vital Signs Temp Pulse Resp BP Pulse Ox 97.8 F 91 16 119/68 99 08/04/23 15:05 08/04/23 15:05 08/04/23 15:05 08/04/23 15:05 08/04/23 15:05 Weight: 152 lb 5.431 oz Body Mass Index (BMI) 29.7 Lab / Micro Data 08/04/23 15:25 Labs: Laboratory Results - last 24 hr 08/04/23 15:25: WBC 8.2, RBC 3.83 L, Hgb 11.0 L, Hct 32.9 L, MCV 85.9, MCH 28.7, MCHC 33.4, RDW Std Deviation 40.0, RDW Coeff of Phill 12.9, Plt Count 331, MPV 10.1, Immature Gran % (Auto) 0.200, Neut % (Auto) 68.6, Lymph % (Auto) 21.2, M rudolph % (Auto) 8.7, Eos % (Auto) 1.1, Baso % (Auto) 0.2, Absolute Neuts (auto) 5.6, Absolute Lymphs (auto) 1.73, Nucleated RBC % 0, PT 13.3, INR 1.0, APTT 25.5, Fibrinogen 530 H, Syphilis Total Ab Non-reactive, Blood Type A POSITIVE, Antibody Screen NEGATIVE NST FHR Rate Baby A Baseline: 135 Variability:: Moderate Accelerations:: 15 x 15 Decelerations:: None NST Reactive:: Yes Uterine Activity:: Irritability Assessment & Plan (1) Vaginal bleeding during : (2) 36 weeks gestation of : (3) Previous delivery, antepartum: (4) AMA (advanced maternal age) multigravida 35+: PLAN: Plan Was requested to complete CE on patient by nursing CE FT/ high Small amount of dark red, mucus blood on glove after exam Reported assessment to Dr. Ponce Will continue to monitor- patient will stay overnight as observation
[2023-08-04 19:20] VITALS: PULSE 78; RESP 18; TEMP 37.2; O2SAT 95
[2023-08-04 19:21] VITALS: BP 109/59; PULSE 77
[2023-08-04 19:55] LABS: Absolute Neutrophil Count 9.6 X10^3/uL (2.0-7.7); Basophil# 0.03 X10^3/uL; Basophil% 0.3 % (0-1); Eosinophil# 0.01 X10^3/uL; Eosinophils% 0.1 % (0-5); Hematocrit 36.1 % (37-47); Hemoglobin 11.8 g/dL (12.0-15.0); Lymphocyte % 9.2 % (19-41); Mean Corp Hgb Conc 32.7 g/dL (32-36); Mean Corpuscular Hgb 28.6 pg (27.0-32.0); Mean Corpuscular Volume 87.6 fL (81-99); Mean Platelet Vol. 9.9 fl (6.2-12.0); Monocyte# 0.18 X10^3/uL; Monocyte% 1.7 % (0-10); NRBC Flagged by Analyzer 0 % (0-5); Neutrophil # 9.62 X10^3/uL (2.7-7.7); Neutrophil % 88.2 % (47-70); Platelet Count 349 K/mm3 (150-450); Red Blood Count 4.12 M/mm3 (4.2-5.4); White Blood Count 10.9 K/mm3 (4.4-11.0)
[2023-08-04 20:06] LABS: Prothrombin Time (Protime)PT. 13.3 SECONDS (11.7-14.9)
[2023-08-04 20:07] LABS: Partial Thromboplast Time 25.3 Seconds (24.1-36.2)
[2023-08-04 20:09] LABS: Fibrinogen 552 mg/dl (203-444)
--- NOTE | 2023-08-05 10:07 | OB.TRI.NOTE ---
[facility] - General General Date of Admission: 08/04/23 Date of Service: 08/04/23 Chief Complaint: vaginal bleeding [facility] Narrative ARIAN SOSA, is a 43 F who presents 5 para 1-2-1-3 who presents at 36-1/7 weeks complaining of some vaginal bleeding. She noted small clot and bright red vaginal bleeding in the middle of the afternoon. She had some mild abdominal tightening. She denied any leaking of fluid. She called the office and was instructed to come to labor and delivery. After she presented she had no more active vaginal bleeding. She not have any regular contractions or cramping. She had good movement. Maternal Data Information Gestational age: 36 1/7 [facility] Medical History (Updated 08/04/23 @ 19:00 by Nayeli Miranda CNM) Anxiety delivery delivered History of pre-term labor Infertility Migraines depression Home Medications vits,calcium no.78-iron fumarate-folic acid 29 mg-1 mg tablet 1 tab PO DAILY 08/04/19 [History Last Taken 08/03/23 21:00] sertraline 25 mg tablet 75 mg PO DAILY Check with primary doctor 07/25/21 [History Last Taken 08/03/23 21:00 75 mg] sertraline 50 mg tablet 50 mg PO DAILY Check with primary doctor 07/25/21 [History Last Taken Unknown] docusate sodium 100 mg capsule (Colace) 100 mg PO BID #30 caps 09/04/21 [Rx Last Taken Unknown] aspirin 81 mg chewable tablet (Aspirin Childrens) 1 tab PO DAILY 08/04/23 [History Last Taken 08/03/23 21:00 1 TAB] diphenhydramine HCl 50 mg capsule (Sleeping) 50 mg PO QHS 08/04/23 [History Last Taken 08/03/23 21:00 50 mg] Allergy/AdvReac Type Severity Reaction Status Date / Time azithromycin [From Zithromax] Allergy Chest Verified 08/04/23 15:10 tightness doxycycline Allergy Chest Verified 08/04/23 15:10 tightness Surgical History (Updated 08/04/23 @ 19:00 by Nayeli Miranda CNM) Delivery by section History of gynecologic surgery Previous section Social History Smoking Status: Never smoker History Elective abortions Hx Para 2 Spontaneous abortions Hx # Term Pregnancies Ectopic pregnancies Hx # Pregnancies Multiple births # of living children NST FHR Rate Baby A Baseline: 130 Variability:: Moderate Accelerations:: 15 x 15 Decelerations:: Variable (occasional, category > for greater than 20 min before d/c home) NST Reactive:: Yes FHR Category:: Category I Uterine Activity:: irritability with irreg ctxs Assessment & Plan (1) AMA (advanced maternal age) multigravida 35+: (2) Previous delivery, antepartum: (3) 36 weeks gestation of : (4) Vaginal bleeding during : PLAN: No evidence of labor. No active vaginal bleeding after arrival. Labs are stable. heart tones are reassuring. Patient was given 1 dose of betamethasone. Patient was comfortable being discharged home. Will return for any further bleeding, increasing contractions or other concerns. Otherwise follow-up in the office as scheduled. Patient had a cervical exam by Nayeli Miranda CNM and repeat by nursing.
== END 2023-08-04 20:45 | disposition home or self-care (01) ==
LOC: WPOUT 15:03 → WP 15:05
PROVIDERS: PCP Family Medicine; Referring Provider Obstetrics & Gynecology; Visit Provider Obstetrics & Gynecology
DX: O46.93 Antepartum hemorrhage, unspecified, third trimester (principal); Z3A.36 36 weeks gestation of pregnancy; O34.219 Maternal care for unspecified type scar from previous cesarean delivery; O09.523 Supervision of elderly multigravida, third trimester; O99.343 Other mental disorders complicating pregnancy, third trimester; F41.9 Anxiety disorder, unspecified; Z79.899 Other long term (current) drug therapy
CPT/HCPCS: 36415; 59025; 59050; 85025; 85384; 85610; 85730; 86780; 86850; 86900; 86901; 96372; 99221; A4216; G0378; J0702

== ENCOUNTER 2023-08-17 01:51 | Inpatient (IN) | payer BC, SELFPAY ==
--- NOTE | 2023-08-16 | FALS_PTH ---
PATIENT: ARIAN SOSA LOC: [facility] U#:[id number] AGE/SX: 43/F ROOM: WP008 RE08/17/[address]: Dr. Kristyn Caceres DO : 1980 BED: 1 DIS: 08/20/2023 SPEC #: [id number] RECD: 08/17/23 05:54 STATUS: ARRON SAM #: [id number] LEONARD: 08/16/23 00:[address]: Kristyn Caceres DEPT: SURGICAL PATHOLOGY RECD BY: Ana Atkins ENTERED: 08/17/23 10:16 SP TYPE: FALL TUBES OTHR DR: Dr. Elena Hawkins MD Tissues: Fallopian tube Procedures: Surgery Specimen Level II HEADER OPERATION: Tubal ligation PRE-OP DIAGNOSIS: Sterilization TISSUE SUBMITTED: Fallopian tubes- stitch in right tube MICROSCOPIC DIAGNOSIS Bilateral fallopian tubes, salpingectomy: Bilateral fallopian tubes, no pathologic diagnosis. SJ: 08/18/23 MICROSCOPIC DESCRIPTION Slides are reviewed. GROSS DESCRIPTION Received in fixative is one container labeled with the patient's name and designated bilateral fallopian tubes- stitch right tube. The specimen consists of bilateral fallopian tubes including fimbrial ends. Right fallopian tube measures 8.0 cm in length and 0.6 cm in diameter. The left fallopian tube measures 7.0cm in length and 0.7cm in diameter. A detached piece of fimbral end is also present in the container measuring 1.5 x 1.0 x 0.3cm. Sections reveal unremarkable cut surfaces. General Operations Manager sections are submitted in two cassettes as follows: 1- right fallopian tube, 2- left fallopian tube with detached piece of fimbral end. / SJ: 08/17/23 TC:4 [facility]: [id number] x2
[2023-08-17] VITALS (42 sets, daily range): BP systolic 89–130; BP diastolic 53–88; PULSE 86–112; RESP 12–23; TEMP 36.4–37.3; O2SAT 97–100; BMI 29.0
[2023-08-17] MEDS: Lactated Ringers 1,000 ML 999 ML IV (01:45)
[2023-08-17] MEDS: LACTATED RINGERS 500 ML 999 ML IV (02:00)
[2023-08-17 02:08] LABS: Absolute Lymphocyte Count 2.16 X10^3/uL (0.83-4.51); Absolute Neutrophil Count 7.8 X10^3/uL (2.0-7.7); Basophil# 0.05 X10^3/uL; Basophil% 0.4 % (0-1); Eosinophil# 0.29 X10^3/uL; Eosinophils% 2.6 % (0-5); Hematocrit 38.6 % (37-47); Hemoglobin 12.8 g/dL (12.0-15.0); Lymphocyte # 2.16 X10^3/ul (0.83-4.51); Lymphocyte % 19.1 % (19-41); Mean Corp Hgb Conc 33.2 g/dL (32-36); Mean Corpuscular Hgb 29.2 pg (27.0-32.0); Mean Corpuscular Volume 87.9 fL (81-99); Mean Platelet Vol. 10.1 fl (6.2-12.0); Monocyte# 0.99 X10^3/uL; Monocyte% 8.8 % (0-10); NRBC Flagged by Analyzer 0 % (0-5); Neutrophil # 7.79 X10^3/uL (2.7-7.7); Neutrophil % 68.8 % (47-70); Platelet Count 341 K/mm3 (150-450); RBC Distribution Width CV 13.1 % (11.6-14.6); RBC Distribution Width SD 41.8 fl (35.1-43.9); Red Blood Count 4.39 M/mm3 (4.2-5.4); White Blood Count 11.3 K/mm3 (4.4-11.0)
--- NOTE | 2023-08-17 02:13 | PCM.HP.OB ---
HPI - General General Date of Admission: 08/17/23 Date of Service: 08/17/23 Chief Complaint: active labor HPI Narrative ARIAN SOSA, is a 43 F who presents in active labor with ctx's q 2-3 min and 7 cm dilated with BBOW. No bleeding or lof. Good FM. She offers no other complaints. [facility] Medical History Anxiety delivery delivered History of pre-term labor Infertility Migraines depression Home Medications vits,calcium no.78-iron fumarate-folic acid 29 mg-1 mg tablet 1 tab PO DAILY 08/04/19 [History Last Taken 08/03/23 21:00] sertraline 25 mg tablet 75 mg PO DAILY Check with primary doctor 07/25/21 [History Last Taken 08/03/23 21:00 75 mg] sertraline 50 mg tablet 50 mg PO DAILY Check with primary doctor 07/25/21 [History Last Taken Unknown] docusate sodium 100 mg capsule (Colace) 100 mg PO BID #30 caps 09/04/21 [Rx Last Taken Unknown] aspirin 81 mg chewable tablet (Aspirin Childrens) 1 tab PO DAILY 08/04/23 [History Last Taken 08/03/23 21:00 1 TAB] diphenhydramine HCl 50 mg capsule (Sleeping) 50 mg PO QHS 08/04/23 [History Last Taken 08/03/23 21:00 50 mg] Allergy/AdvReac Type Severity Reaction Status Date / Time azithromycin [From Zithromax] Allergy Chest Verified 08/04/23 15:10 tightness doxycycline Allergy Chest Verified 08/04/23 15:10 tightness Surgical History Delivery by section History of gynecologic surgery Previous section Social History Smoking Status: Never smoker History Elective abortions Hx Para 3 Spontaneous abortions Hx # Term Pregnancies Ectopic pregnancies Hx # Pregnancies Multiple births # of living children NST FHR Rate Baby A Baseline: 150 Variability:: Moderate Accelerations:: None Decelerations:: Variable Uterine Activity:: ctx's q 2-3 min Vital Signs Vital Signs Vital Signs: 08/17/23 01:51 08/17/23 01:51 08/17/23 02:07 Temperature Temperature Source Pulse Rate 96 103 H Respiratory Rate Blood Pressure 108/69 Blood Pressure Mean BP Systolic 108 BP Diastolic 69 Blood Pressure Source Blood Pressure Position Blood Pressure Location Pulse Ox Oxygen Delivery Method 08/17/23 02:07 08/17/23 02:11 08/17/23 02:12 Temperature Temperature Source Pulse Rate 99 Respiratory Rate Blood Pressure 130/82 H Blood Pressure Mean BP Systolic 130 BP Diastolic 82 Blood Pressure Source Blood Pressure Position Blood Pressure Location Pulse Ox 100 Oxygen Delivery Method 08/17/23 02:11 08/17/23 02:12 08/17/23 01:55 Temperature 99.1 F Temperature Source Temporal Pulse Rate 106 H 98 Respiratory Rate 16 Blood Pressure 108/69 Blood Pressure Mean 82 BP Systolic BP Diastolic Blood Pressure Source Monitor Blood Pressure Position Semi-Fowlers Blood Pressure Location Left Arm Pulse Ox 100 100 Oxygen Delivery Method Room Air Weight Weight: 149 lb 0.52 oz Body Mass Index (BMI) 29.0 Physical Exam Const alert and no apparent distress Constitutional Narrative: Uncomfortable HEENT normocephalic Resp normal respiratory effort Narrative: Cvx 7/90/0 BBOW vertex Labs Labs Labs: Blood Type A POSITIVE Antibody Screen NEGATIVE Hct 38.6 % (37-47) Hgb 12.8 g/dL (12.0-15.0) Syphilis Total Ab Non-reactive Rubella IgG Antibody Reactive (Nonreactive) Hepatitis C Ab (EIA) <0.1 s/co ratio (0.0-0.9) Rhogam given: No Assessment & Plan (1) 38 weeks gestation of : PLAN: Admit to L&D for active labor. The patient requested to proceed with TOLAC given active labor. Discussed 2 prior sections is not an absolute contraindication to trying for a vaginal delivery. Discussed risk of uterine rupture. Discussed r/b/a repeat section versus TOLAC and the patient desires a TOLAC given 7 cm with BBOW. Anesthesia at bedside for epidural. Will AROM after epidural. Pelvis adequate and expected EFW < 4500 g. GBS negative. (2) Active labor: (3) Active labor at term: (4) Advanced maternal age (AMA), 40 years or greater: (5) Previous delivery affecting :
[2023-08-17 02:43] LABS: Syphilis Antibodies Non-reactive
[2023-08-17] MEDS: Cefazolin 2 GM in 0.9% Normal Saline (100mL Bag) 100 ML IV (03:35)
--- NOTE | 2023-08-17 04:38 | RAD_ITS ---
We are attempting to reach an attending provider to discuss findings. An addendum with communication details will be sent when the communication is complete. INDICATION: no count prior to stat c/s EXAMINATION/TECHNIQUE: X-RAY - XR Abdomen 1 View portable. 4:49 AM. COMPARISON: None. FINDINGS: Bowel gas pattern is nonobstructive. No radiopaque foreign body identified. RAD/Abdomen Single View (Portable) IMPRESSION: No radiopaque foreign body identified. Electronically Signed: Mana Carr MD at 6:04 EDT ,
--- NOTE | 2023-08-17 05:09 | PCM.PN.BLA ---
Progress Note Patient still uncomfortable with contractions after epidural. No bleeding. Assessment & Plan Assessment/Plan (1) LLQ pain: (2) Non-reassuring heart rate or rhythm affecting management of fetus: (3) Active labor: (4) AMA (advanced maternal age) multigravida 35+: (5) Previous delivery, antepartum: (6) 38 weeks gestation of : PLAN: Plan At bedside with patient after epidural. The patient was still uncomfortable with her epidural. Cvx 9/100/0 and AROM performed for clear fluid. FHT 150 bpm with moderate variability but decelerations noted to 90 bpm. The patient's blood pressure was low and anesthesia was at bedside addressing hypotension, and the patient made quick change from 7 to 9 cm. However the decelerations continued and then patient noted severe LLQ pain. Discussed with patient and partner at bedside concern for uterine rupture given non reassuring heart tracing and pain. Cvx on recheck still 9 cm. Recommended repeat section. Patient desires bilateral salpingectomy. Patient consent to proceed with repeat section.
--- NOTE | 2023-08-17 05:17 | OP.PCM_ITS ---
Problems Associated Problem List Diagnoses (1) Non-reassuring heart rate or rhythm affecting management of fetus: (2) LLQ pain: (3) Active labor: (4) AMA (advanced maternal age) multigravida 35+: (5) Previous delivery, antepartum: (6) 38 weeks gestation of : Report of Operation Date of Procedure: 08/17/23 Pre-Operative Diagnosis: 38 week gestation, prior section, active labor, pain, non reassuring heart rate tracing Post-Operative Diagnosis: As above Surgery/Procedure Performed:: Stat PLTCS via pfannenstiel incision Description of Surgical Findings:: Rectus muscles adhered in the midline. Normal appearing uterus and bilateral adnexa. VMI in cephalic presentation with clear fluid and apgars of 5, 7, 8. Normal appearing placenta. Surgeon: Kristyn Caceres butadiene converter helper: Kiersten WILKS Type of Anesthesia: General Anesthesiologist: Izaiah Special Medications: None Specimen's removed: Placenta Bilateral fallopian tubes Drains: Pruitt Estimated Blood Loss (mL): 500 Fluids Replaced: 700 Description of Procedure: Indications: The patient presented in active labor at 7 cm and quickly progressed to 9 cm, and requested TOLAC. However heart rate decelerations were noted and the patient began having severe LLQ pain. She was taken to the OR given non reassuring heart rate tracing. Procedure: The patient was taken to the operating room where the heart rate was unable to be obtained. A nurse was instructed to get the bedside TAUS. While waiting for the ultrasound, the patient again voiced that she had severe LLQ pain. She was prepped with Betadine and draped in the dorsal supine position with a leftward tilt. The epidural was not adequate and she was having pain. Given the concern for uterine rupture, the decision was made for the patient to be placed under general anesthesia. Once the patient was under general anesthesia a Pfannenstiel skin incision was made with the scalpel. The incision was carried down to the underlying layer of fascia. The fascia was incised with a scalpel in the midline. The fascial incision was extended laterally with trac tion. The rectus muscles were noted to be adhered in the midline. The rectus muscles were slightly incised in the midline using the scalpel along the scarring enough to separate the rectus muscles bluntly. The peritoneum was entered bluntly with good visualization of the bladder. The peritoneal incision was extended bluntly with lateral traction. A bladder blade was inserted. A low transverse incision was made on the uterus with a scalpel. The uterine incision was extended using cephalad and caudad traction. The head of the was elevated out of the pelvis, and a viable male was delivered without any traction, force, or delay through the hysterotomy. The cord was clamped and cut immediately and the infant was handed off to the waiting nursery staff. The placenta was removed with manual extraction. The uterus was exteriorized. The uterus was cleared of all clot and debris. The hysterotomy was closed with 1-0 Vicryl in a running locked fashion. Several additional qzgglo-cx-mcxrl sutures were placed for hemostasis. There was a small extension along the right side into the cervix that was still bleeding. An additional lzicgl-eo-iylkr suture was placed and hemoblast was placed over the extension. Pressure was applied and then hemostasis was noted. Hemostasis was noted along the hysterotomy. There was a 3 x 2 cm area on the anterior uterine serosa about 4 cm above the hysterotomy that continued to ooze. Hemoblast and pressure was placed over that serosal area and hemostasis was confirmed. The rectus muscles were inspected and made hemostatic using the Bovie cautery and hemoblast with pressure. The peritoneum was unable to be closed. Once the subfascial space was noted to be hemostatic the fascia was closed with STRATAFIX in a running fashion. The subcutaneous space was irrigated and made hemostatic with the Bovie cautery. The subcutaneous space was reapproximated using 3-0 Vicryl. The skin was closed with 4 Monocryl in a subcuticular fashion. A silver dressing was placed. An x-ray was performed at the end of the procedure given the section was stat in nature, and no count was performed prior to the section. [facility] starting at uterine closure and assisted with closure. Grafts/Implants Used: None Procedure Stop Time: 04:55 Complications None Admit VTE Documentation VTE Present on Admission: No
[2023-08-17] MEDS: Oxytocin 15 Units/NS 250ml 15 UNITS/250 ML IV.SOLN 83 UNITS IV (05:25)
[2023-08-17 05:51] LABS: Pathology Specimen OB SEE PATHOLOGY REPORT
[2023-08-17] MEDS: Ketorolac 30 MG/ML Syringe IV ×3 (06:09→17:44)
[2023-08-17] MEDS: Acetaminophen 500 MG Tablet 1000 MG PO ×3 (07:15→19:04)
[2023-08-17] MEDS: Lactated Ringers 1,000 ML 100 ML IV (08:44)
[2023-08-17] MEDS: Sertraline 50 MG Tablet 75 MG PO (10:19)
[2023-08-17] MEDS: Senna/Docusate Sodium 1 Tablet PO (10:19)
[2023-08-17] MEDS: SimETHICONE 80 MG Chewable Tablet PO ×3 (12:05→19:08)
[2023-08-17] MEDS: 0.9% Saline Lock 10 ML Syringe IV ×2 (16:47→17:44)
[2023-08-17] MEDS: Ibuprofen 600 MG Tablet PO (23:18)
[2023-08-18] MEDS: Acetaminophen 500 MG Tablet 1000 MG PO ×4 (01:04→20:53)
[2023-08-18 03:24] VITALS: BP 89/56; PULSE 82; RESP 16; O2SAT 100
[2023-08-18] MEDS: Ibuprofen 600 MG Tablet PO ×4 (05:22→23:46)
[2023-08-18 05:33] LABS: Hematocrit 24.6 % (37-47); Hemoglobin 7.9 g/dL (12.0-15.0); Mean Corp Hgb Conc 32.1 g/dL (32-36); Mean Corpuscular Hgb 28.6 pg (27.0-32.0); Mean Corpuscular Volume 89.1 fL (81-99); Mean Platelet Vol. 9.5 fl (6.2-12.0); Platelet Count 235 K/mm3 (150-450); RBC Distribution Width CV 13.4 % (11.6-14.6); RBC Distribution Width SD 43.1 fl (35.1-43.9); Red Blood Count 2.76 M/mm3 (4.2-5.4); White Blood Count 9.1 K/mm3 (4.4-11.0)
[2023-08-18] MEDS: Senna/Docusate Sodium 1 Tablet PO (07:54)
[2023-08-18] MEDS: oxyCODONE 5 MG Tablet PO ×2 (07:55→14:24)
[2023-08-18] MEDS: Sertraline 50 MG Tablet 75 MG PO (07:55)
[2023-08-18 07:58] VITALS: BP 86/68; PULSE 97; RESP 16; TEMP 36.8; O2SAT 100
--- NOTE | 2023-08-18 09:26 | PCM.PN.OB ---
Subjective Subjective Pain well controlled, average lochia. Denies N/V or lightheadedness or CP/SOB. Objective Data Objective Data Vital Signs: Vital Signs Temp Pulse Resp BP Pulse Ox O2 Del Method O2 Flow Rate 98.2 F 97 16 86/68 L 100 Room Air 1 08/18/23 07:58 08/18/23 07:58 08/18/23 07:58 08/18/23 07:58 08/18/23 07:58 08/18/23 07:58 08/17/23 06:45 Oxygen Flow Rate (L/min) 1 Oxygen Delivery Method Room Air Weight: 67.6 kg Body Mass Index (BMI) 29.0 Intake & Output: Intake and Output for Last 24 Hours 08/16/23 08/17/23 08/18/23 23:59 23:59 23:59 Intake Total 2930 / 2930 Output Total 2200 / 2200 800 / 800 Balance 730 / 730 -800 / -800 Lab / Micro Data 08/18/23 05:25 Labs: Laboratory Results - last 24 hr 08/18/23 05:25: WBC 9.1, RBC 2.76 L, Hgb 7.9 L, Hct 24.6 L, MCV 89.1, MCH 28.6, MCHC 32.1, RDW Std Deviation 43.1, RDW Coeff of Phill 13.4, Plt Count 235, MPV 9.5 Physical Exam Const alert General Appearance: cooperative GI GI Narrative: soft, moderate distention, fundus firm, appropriately tender. Abdominal bandage clean dry and intact Assessment & Plan (1) Acute blood loss anemia: PLAN: POD#1 s/p repeat c/s. Doing well overall. Tolerating acute blood anemia well. Recheck CBC at noon today and am tomorrow. and doing well. routine postop care. (2) delivery delivered:
--- NOTE | 2023-08-18 09:41 | NURSING ---
corrected documentation. pt was a failed
[2023-08-18] MEDS: SimETHICONE 80 MG Chewable Tablet PO ×3 (11:33→20:52)
[2023-08-18 12:27] LABS: Hematocrit 25.3 % (37-47); Hemoglobin 8.2 g/dL (12.0-15.0); Mean Corp Hgb Conc 32.4 g/dL (32-36); Mean Corpuscular Hgb 29.2 pg (27.0-32.0); Mean Platelet Vol. 10.4 fl (6.2-12.0); Platelet Count 273 K/mm3 (150-450); RBC Distribution Width CV 13.3 % (11.6-14.6); RBC Distribution Width SD 43.4 fl (35.1-43.9); Red Blood Count 2.81 M/mm3 (4.2-5.4); White Blood Count 10.2 K/mm3 (4.4-11.0)
[2023-08-18 14:16] VITALS: BP 88/56; PULSE 91; RESP 16; TEMP 36.5; O2SAT 97
--- NOTE | 2023-08-18 15:28 | CASEMGMT ---
Social Work Assessment Labor and Delivery Unit Patient Address:[address] [place] [address]. [place] [address] Phone number:[phone] Date of Referral: 08/17/23 Time of Referral:? 729 Referred By: Kristyn Caceres Date of Intervention: ??08/18/23 Time of Intervention:? 944 Reason for Referral:? hx of anxiety/ depression, ppd, delivery for this baby STAT Sw completed chart review and acknowledges social work consult. Sw presented to bedside and introduced self to mother of baby (MOB- Raisa) and father of baby (FOFarideh- Vj) and explained reason for sw involvement. Sw completed psychosocial assessment and assessed for any needs or concerns. History obtained from: medical records, MOB and FOB Household composition: Currently residing in the family home is MOB, JOSE DE JESUS, MOB's 16 year old daughter, MOB/FOB's two older boys (Case- 4 y/o, and Keau- almost 2 y./o). Parents deny any issues or concerns with their housing at this time. Patient's parent/guardian status:? ?Parents were introduced to each other in 2017 by mutual friends and have been since 2018. No concerns reported at this time of domestic violence or intimate partner violence. Parents were laughing with each other and observed to have a close connection. Medical History: ?ANA is 43 year old female who is 5, para 3- now 4 following labor and delivery of . ANA received routine care during with [facility]. ANA presented to hospital in active labor at 7 centimeters dilated. ANA required emergency with general anesthesia due to non-reassuring heart tones of baby. Baby boy, named Enrique, was born on 08/17/23 at 38 weeks gestation weighing 7lb 6oz and apgars of 5, 7, 8 (one, five and 10 minutes of life, respectfully). Baby will be followed by Dr. Hernandes. ANA is breast feeding and states that this is going well. Educational Status: ANA obtained her masters degree. ? Financial Status: Both parents are gainfully employed outside of the home. 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 Both parents are able to have enough time off of work now that baby has been born. Infant Supplies:??Parents have obtained all necessary baby supplies, including: car seat, safe sleep space, clothes, diapers and wipes. ANA states that her pump is getting delivered tomorrow. Childcare/Caregiver(s):? ANA will be the primary caregiver to baby along with JOSE DE JESUS when he is not at work. When both parents have returned to work they have alternating family members who come to their home to provide childcare. Transportation:?? Both parents have their drivers license and reliable means of transportation. No barriers at this time. Programs/Agencies Involved: ??Parents are over income for community agencies that provide financial assistance. ANA is connected to mental health services provided by [facility]. ? Children Services/Legal Issues:??? No history of involvement, no issues or concerns warranting referral to be made at this time. Behavioral Health Issues: ??Mental Health History:?JOSE DE JESUS denies mental health diagnoses. ANA states that she has been diagnosed with anxiety and did experience anxiety after her first son was born. MOB states that at that time she had really bizarre thoughts, such as: Manju is going to run over the baby with the car. MOB states that at that time her daughter was only 12 years old. ANA states that she did not struggle with any issues after her second son was born. ANA states that she is prescribed zoloft from [facility] and she takes it regularly to help manage her mental health symptoms. ? Substance Use History: Parents deny substance use. JOSE DE JESUS states that he will enjoy a beer or two on the weekends. ?? Family History:??Parents deny family mental health history or substance use. ??? Drug Screens: No drug screens observed in chart review. ?? Family/Social Stressors:? Parents deny any issues or concerns at this time. Support Systems: ANA states that JOSE DE JESUS is her biggest support, along with her sister, her mom and JOSE DE JESUS's family. Depression/Shaken Baby/Safe Sleeping:? Saba educated parents on signs and symptoms of baby blues and depression and anxiety. JOSE DE JESUS stated that he does believe that is real, but he struggles to believe that the majority of people have depression and anxiety at baseline. FOB states that he is able to recognize when ANA is struggling with her mental health and he does know how to help and support her. Saba educated parents on shaken baby prevention and ABCs of safe sleep. Parents express understanding. Literature provided on safe sleep, signs and symptoms of baby blues/ depression/ anxiety, and safe sleep. ASSESSMENT:? MOB and baby admitted following labor and delivery of . MOB observed nursing baby and cared for him appropriately and lovingly. FOB was observed to be a support to MOB and attentive to her needs. Parents were engaged in conversation and completion of psychosocial assessment. MOB made and maintained eye contact. MOB aware of signs of mental health symptoms to be on the lookout for. Parents have a lot of natural supports in place and have obtained all necessary baby supplies. PLAN:? MOB and baby to be discharged when medically ready. ?No other services requested or indicated. Deborah Bynum, MEATCUTTER, ALLIED HEALTH PROFESSIONAL
[2023-08-18 20:45] VITALS: BP 115/72; PULSE 99; RESP 18
[2023-08-19 02:38] VITALS: BP 95/65; PULSE 91; RESP 18
[2023-08-19] MEDS: Acetaminophen 500 MG Tablet 1000 MG PO ×4 (02:41→21:12)
[2023-08-19] MEDS: Ibuprofen 600 MG Tablet PO ×4 (05:46→23:35)
[2023-08-19 06:14] LABS: Hematocrit 25.7 % (37-47); Mean Corp Hgb Conc 31.1 g/dL (32-36); Mean Corpuscular Hgb 28.3 pg (27.0-32.0); Mean Corpuscular Volume 90.8 fL (81-99); Mean Platelet Vol. 10.1 fl (6.2-12.0); Platelet Count 290 K/mm3 (150-450); RBC Distribution Width CV 13.6 % (11.6-14.6); RBC Distribution Width SD 44.4 fl (35.1-43.9); Red Blood Count 2.83 M/mm3 (4.2-5.4); White Blood Count 8.1 K/mm3 (4.4-11.0)
--- NOTE | 2023-08-19 07:17 | PCM.PROGNOTE ---
Subjective Subjective patient seen at bedside, doing well. Patient reports good pain control however having more then previous since had general anesthesia - throat is irritated and finds herself coughing more due to irritation from the tube. lochia mild. Passing flatus. breast feeding well without concerns. Objective Data Objective Data Vital Signs: Vital Signs Temp Pulse Resp BP Pulse Ox O2 Del Method O2 Flow Rate 97.7 F L 91 18 95/65 97 Room Air 1 08/18/23 14:16 08/19/23 02:38 08/19/23 02:38 08/19/23 02:38 08/18/23 14:16 08/19/23 02:38 08/17/23 06:45 Oxygen Flow Rate (L/min) 1 Oxygen Delivery Method Room Air Weight: 67.6 kg Body Mass Index (BMI) 29.0 Intake & Output: Intake and Output for Last 24 Hours 08/17/23 08/18/23 08/19/23 23:59 23:59 23:59 Intake Total 2930 / 2930 Output Total 2200 / 2200 800 / 800 Balance 730 / 730 -800 / -800 Lab / Micro Data 08/19/23 05:50 Labs: Laboratory Results - last 24 hr 08/18/23 11:35: WBC 10.2, RBC 2.81 L, Hgb 8.2 L, Hct 25.3 L, MCV 90.0, MCH 29.2, MCHC 32.4, RDW Std Deviation 43.4, RDW Coeff of Phill 13.3, Plt Count 273, MPV 10.4 08/19/23 05:50: WBC 8.1, RBC 2.83 L, Hgb 8.0 L, Hct 25.7 L, MCV 90.8, MCH 28.3, MCHC 31.1 L, RDW Std Deviation 44.4 H, RDW Coeff of Phill 13.6, Plt Count 290, MPV 10.1 Physical Exam Narrative fundus firm. Dressing dry and intact. Const alert and oriented x3 General Appearance: cooperative HEENT normocephalic Neck General: normal visual inspection GI soft to palpation and non-distended GI Narrative: Fundus firm Extremity normal to inspection and no calf tenderness Skin no rashes or lesions noted Neuro oriented x3 and CN's II-XII intact bilaterally Psych mental status grossly normal Assessment & Plan Assessment/Plan (1) delivery delivered: (2) Acute blood loss anemia: PLAN: Plan POD# 2 , Doing well Routine care pain mgmt monitor VS ambulation anticipate dc home tomorrow- keep today for pain control
[2023-08-19 07:44] VITALS: BP 106/68; PULSE 84; RESP 16; TEMP 36.1; O2SAT 100
[2023-08-19] MEDS: Sertraline 50 MG Tablet 75 MG PO (09:23)
[2023-08-19] MEDS: Senna/Docusate Sodium 1 Tablet PO (09:25)
[2023-08-19] MEDS: SimETHICONE 80 MG Chewable Tablet PO (09:29)
[2023-08-19 14:30] VITALS: BP 114/73; PULSE 92; RESP 16; TEMP 36.6; O2SAT 100
[2023-08-19 21:10] VITALS: BP 120/76; PULSE 82; RESP 16
[2023-08-20 01:29] VITALS: BP 105/66; PULSE 73; RESP 18
[2023-08-20] MEDS: Acetaminophen 500 MG Tablet 1000 MG PO ×2 (03:32→09:38)
[2023-08-20] MEDS: Ibuprofen 600 MG Tablet PO (06:15)
[2023-08-20 07:57] VITALS: BP 113/58; PULSE 76; RESP 16; TEMP 36.8; O2SAT 97
--- NOTE | 2023-08-20 08:45 | PCM.PN.OB ---
Subjective Subjective Breast feeding well. Minimal bleeding. Pain controlled. Objective Data Objective Data Vital Signs: Vital Signs Temp Pulse Resp BP Pulse Ox O2 Del Method O2 Flow Rate 98.3 F 76 16 113/58 L 97 Room Air 1 08/20/23 07:57 08/20/23 07:57 08/20/23 07:57 08/20/23 07:57 08/20/23 07:57 08/20/23 07:57 08/17/23 06:45 Oxygen Flow Rate (L/min) 1 Oxygen Delivery Method Room Air Weight: 67.6 kg Body Mass Index (BMI) 29.0 Intake & Output: Intake and Output for Last 24 Hours 08/18/23 08/19/23 08/20/23 23:59 23:59 23:59 Output Total 800 / 800 Balance -800 / -800 Lab / Micro Data 08/19/23 05:50 Physical Exam Const alert General Appearance: cooperative GI GI Narrative: soft, moderate distention, fundus firm, appropriately tender. Abdominal bandage clean dry and intact Assessment & Plan (1) delivery delivered: (2) Acute blood loss anemia: (3) Previous delivery, antepartum: PLAN: Plan D/c home
--- NOTE | 2023-08-20 08:50 | PCM.DC.SUM ---
Providers Date of Admission: 08/17/23 Date of Discharge: 08/20/23 Primary Care Physician: Dr. Elena Hawkins MD Reason For Visit: REPEAT C SECTION Diagnosis Discharge Diagnosis (1) delivery delivered: Status: Acute Code(s): O82 - Encounter for delivery without indication (2) Acute blood loss anemia: Status: Acute Code(s): D62 - Acute posthemorrhagic anemia (3) Previous delivery, antepartum: Status: Acute Code(s): O34.219 - Maternal care for unspecified type scar from previous delivery Plan D/c home Medications at Discharge Home Medications vits,calcium no.78-iron fumarate-folic acid 29 mg-1 mg tablet 1 tab PO DAILY 08/04/19 sertraline 25 mg tablet 75 mg PO DAILY Check with primary doctor 07/25/21 sertraline 50 mg tablet 50 mg PO DAILY Check with primary doctor 07/25/21 docusate sodium 100 mg capsule (Colace) 100 mg PO BID #30 caps 09/04/21 ibuprofen 600 mg tablet 600 mg PO Q6H #30 tabs 08/20/23 Hospital Course Operations section (with tubal) Procedures None Summary of Care Provided Minutes Spent on Discharge: 21 Hospital Course: Presented in active labor at 7 cm. Initially attempt TOLAC however EFM with nonreassuring FHR and STAT c/s performed. Uncomplicated course. Breast feeding well. Physical Exam Const alert General Appearance: cooperative GI GI Narrative: soft, moderate distention, fundus firm, appropriately tender. Abdominal bandage clean dry and intact Weight / BMI Weight Weight: 67.6 kg Body Mass Index (BMI) 29.0 ABG / Lab / Microbiology Data 08/19/23 05:50 D/C Instructions Discharge Diet: No restrictions May resume sexual activity in: 4-6 weeks Lifting Restrictions: 20 pounds Additional Activity Instructions: Nothing in the vagina for 4-6 weeks. You may return to work/school in 6 weeks. Call your doctor if your incision/area has: Continuous Slow Oozing, Sudden Increased Bleeding, Increased Pain/ Swelling, Increased Redness and Foul Smelling Discharge Call your doctor if you observe: Fever of 101 or Higher and Using more than 1 pad per hour (for 2 hours) Suture Line Care: Avoid Pulling/Pushing and Avoid Pinching/Bending Cleanse incision/area with: Keep Dressing Clean & Dry Please Follow Up With: Brandi Ponce MD When: Call to make an appointment for an incision check in 1-2 [phone]. You will need a post check in 6 weeks. Meaningful Use Info Meaningful Use Meaningful Use Diagnoses (Choose all that apply): None applicable Ischemic Stroke Statin Dosing Therapy Reference: STATIN DOSE THERAPY REFERENCE: * Patients > 75 years receive moderate or high dose statin therapy. * Patients 75 years or YOUNGER should receive HIGH intensity statin dose unless contraindicated. You will be required to document reason for non-treatment if statin daily dose does not meet guidelines. HIGH DOSE STATIN THERAPY DAILY Atorvastatin > than or = to 40 mg Rosuvastatin > than or = to 20 mg Amlodipine + Atorvastatin > than or = to 2.5/40 mg Ezetimibe + Simvastatin 10/80 mg Simvastatin 80mg Discharge Plan Admission Admit Date/Time: 08/17/23 01:51 Primary Reason for Your Visit: active labor Attending Provider: Kristyn Caceres Primary Care Provider: Elena Hawkins Discharge Orders/Prescriptions Prescriptions: New ibuprofen 600 mg Tablet 600 mg PO Q6H Qty: 30 0RF Continued vit,[id number] 1 TABLET tablet 1 tab PO DAILY docusate sodium [Colace] 100 mg capsule 100 mg PO BID Qty: 30 0RF sertraline 25 mg tablet 75 mg PO DAILY Patient Comments: take 1 tablet by mouth once daily IN ADDTITION TO 50 MG TABLET sertraline 50 mg tablet 50 mg PO DAILY Patient Comments: take 1 tablet by mouth once daily IN ADDITION TO 25 MG TABLET Discontinued diphenhydramine HCl [Sleeping] 50 mg capsule 50 mg PO QHS aspirin [Aspirin Childrens] 81 mg tablet,chewable 1 tab PO DAILY Referrals / Follow Up: Elena Hawkins MD [Primary Care Provider] - Disposition Disposition (needs filled in before D/C Order can be placed): Home, Self Care
[2023-08-20] MEDS: Sertraline 50 MG Tablet 75 MG PO (09:38)
[2023-08-20] MEDS: Senna/Docusate Sodium 1 Tablet PO (09:38)
== END 2023-08-20 10:42 | disposition home or self-care (01) | DRG 787 ==
PROVIDERS: Obstetrics & Gynecology; Admitting Provider Obstetrics & Gynecology; PCP Family Medicine; Visit Provider Obstetrics & Gynecology
DX: O76 Abnormality in fetal heart rate and rhythm complicating labor and delivery (principal); D62 Acute posthemorrhagic anemia; Z37.0 Single live birth; Z3A.38 38 weeks gestation of pregnancy; O34.211 Maternal care for low transverse scar from previous cesarean delivery; Z87.51 Personal history of pre-term labor; O99.03 Anemia complicating the puerperium
CPT/HCPCS: 59025; 59050; 74018; 85025; 85027; 86780; 86850; 86900; 86901; 88302; 99221; J7120; A4216; G0378; J2405

== ENCOUNTER → 2024-09-21 | Outpatient (CLI) | payer OTHER, SELFPAY ==
[2024-09-21 13:29] LABS: hCG Titer Quant., Serum 309 mIU/mL (<9 non-preg)
--- OUTSIDE RECORDS SUMMARY | 2024-09-21 20:29 | XMS RPT_ITS | CCD ---
Author Organization [facility] Care Team Providers Care Traffic Control Operator Name Role Phone MAC QUINONEZ Attending Unavailable PROVIDER, UNKNOWN Referring Unavailable Jolliff, Elena S Primary Care Unavailable MAC QUINONEZ Attending Unavailable PROVIDER, UNKNOWN Referring Unavailable Jolliff, Elena S Primary Care Unavailable WOODY KERR NP Attending Unavailable JOLLIFF, ELENA Primary Care Unavailable WOODY KERR NP Admitting Unavailable MAC QUINONEZ Admitting Unavailable MAC QUINONEZ Attending Unavailable DEBORA LOVETT Consulting Unavailable JOLLIFF, ELENA Primary Care Unavailable Elena Hawkins Sharmila Primary Care Provider [phone] Elena Hawkins Sahrmila Primary Care Provider [phone] Ross Elena Sharmila Primary Care Provider Jolliff, Elena S Primary Care Unavailable Kristyn Caceres Admitting Unavailable Kristyn Caceres Attending Unavailable Mac Quinonez Attending Unavailable Mac Quinonez Referring Unavailable Jolliff, Elena S Primary Care Unavailable Mac Quinonez Attending Unavailable Jolliff, Elena S Primary Care Unavailable Brandi Ponce Attending Unavailable Brandi Ponce Referring Unavailable Jolliff, Elena S Primary Care Unavailable Allergies Allergy Classification Reported Allergen(s) Allergy Type Date of Onset Reaction(s) Facility (1 source) Azithromycin Drug Allergy [facility] Repository (1 source) Doxycycline Drug Allergy [facility] (1 source) walnut Drug allergy (disorder) [facility]ository (20 sources) Azithromycin Drug Allergy 10-20-2016 [facility] (20 sources) Doxycycline Drug Allergy 12-28-2012 [facility] (1 source) Azithromycin Drug Allergy 08-04-2023 [facility] Repository (1 source) Doxycycline Drug Allergy 08-04-2023 [facility] Repository Medications Current Medications Medication Drug Class(es) Dates Sig (Normalized) Sig (Original) docusate sodium 100 mg oral capsule (5 sources) Start: 09-04-2021 take 1 capsule by mouth twice daily Docusate Sodium (Colace) 100 mg capsule Active 100 MG PO TWICE A DAY September 04, 2021 12:00am ibuprofen 600 mg oral tablet (6 sources) Nonsteroidal Anti-inflammatory Drug Start: 08-20-2023 take 600 mg by mouth every six hours Ibuprofen Active 600 MG PO EVERY 6 HOURS August 20, 2023 12:00am Start: 09-04-2021 End: 08-04-2023 take 600 mg by mouth every six hours Ibuprofen Discontinued 600 MG PO EVERY 6 HOURS September 04, 2021 12:00am August 04, 2023 3:11pm PNV no.95/ferrous fum/folic ac ( ORAL) (20 sources) take 1 tablet by yaz th once daily before mealtime PNV no.95/ferrous fum/folic ac ( ORAL) Take 1 tablet by mouth once daily. Active take 1 tablet by yaz th once daily before mealtime PNV no.95/ferrous fum/folic ac ( ORAL) Take 1 tablet by mouth once daily. 0 Active Comment on above: Take 1 tablet by yaz th once daily. Vit,[id number] c (6 sources) Start: 08-04-2019 take 1 tablet by mouth once daily Vit,[id number]-Xbn ic Active 1 TABLET PO DAILY August 04, 2019 5:40am Start: 08-04-2019 take 1 tablet by yaz th once daily Vit,Rpjz02-Xvbl-Ooiet Active 1 TABLET PO DAILY August 04, 2019 12:00am sertraline 25 mg oral tablet (20 sources) Serotonin Reuptake Inhibitor Start: 05-22-2024 End: 08-14-2024 take 1 tablet by mouth once daily sertraline (ZOLOFT) 25 mg tablet take 1 tablet by mouth once daily IN ADDITION TO 50 MG TABLET FOR A TOTAL DOSE OF 75 MG 90 tablet 08/14/2024 Active Start: 05-22-2024 End: 08-13-2024 take 1 tablet by mouth once daily sertraline (ZOLOFT) 50 mg tablet take 1 tablet by mouth once daily IN ADDITION TO 25 MG TABLET FOR TOTAL DOSE OF 75 MG 90 tablet 08/14/2024 Active Start: 07-25-2021 take 75 mg by mouth once daily Sertraline Active 75 MG PO DAILY July 25, 2021 12:00am Start: 03-19-2021 End: 05-20-2024 take 1 tablet by mouth once daily sertraline (ZOLOFT) 25 mg tablet take 1 tablet by mouth once daily IN ADDITION TO 50 MG TABLET FOR A TOTAL DOSE OF 75 MG 90 tablet 3 02/18/2023 05/20/2024 Discontinued Start: 03-19-2021 End: 05-20-2024 take 1 tablet by mouth once daily sertraline (ZOLOFT) 50 mg tablet take 1 tablet by mouth once daily IN ADDITION TO 25 MG TABLET FOR TOTAL DOSE OF 75 MG 90 tablet 3 02/18/2023 05/20/2024 Discontinued Comment on above: Take 1 tablet by yaz th once daily. In addition to 25mg tablet for a total of 75mg. Take 1 tablet by yaz th once daily. In addition to 50mg tablet for a total of 75mg. take 1 tablet by yaz th once daily IN ADDITION TO 25 MG TABLET FOR TOTAL DOSE OF 75 MG take 1 tablet by yaz th once daily IN ADDITION TO 50 MG TABLET FOR A TOTAL DOSE OF 75 MG Completed/Discontinued Medications Medication Drug Class(es) Dates Sig (Normalized) Sig (Original) acetaminophen 325 mg / oxyCODONE hydrochloride 5 mg oral tablet (5 sources) Opioid Agonist Start: 09-04-2021 End: 08-04-2023 take 1 tablet by mouth every six hours Oxycodone-Acetamin ophen (Percocet) 5-325 mg tablet Discontinued 1 TABLET PO EVERY 6 HOURS 15 7 September 04, 2021 August 04, 2023 3:11pm aspirin 81 mg chewable tablet (20 sources) Platelet Aggregation Inhibitor, Nonsteroidal Anti-inflammatory Drug Start: 08-04-2023 End: 08-20-2023 take 1 tablet by mouth once daily Aspirin (Aspirin Childrens) 81 mg tablet,chewable Discontinued 1 TABLET PO DAILY August 04, 2023 12:00am August 20, 2023 8:47am End: 02-18-2023 aspirin 81 mg cap Take by mo [facility]. 0 02/18/2023 Discontinued Comment on above: Take by mouth. betamethasone 0.5 mg/ml / clotrimazole 10 mg/ml topical cream (20 sources) Azole Antifungal, Corticosteroid Start: End: clotrimazole-betameth asone (LOTRISONE) cream Indications: Vaginal irritation Apply 1 application to affected area twice daily. 45 g 1 01/17/2020 02/18/2023 Discontinued Comment on above: Apply 1 application to affected area twice daily. cetirizine hydrochloride 10 mg oral capsule (20 sources) Histamine-1 Receptor Antagonist End: Cetirizine (ZYRTEC) 10 mg cap Take by mouth. 0 06/23/2023 Discontinued (Course of therapy completed) Comment on above: Take by mouth. diphenhydrAMINE hydrochloride 50 mg oral capsule (20 sources) Histamine-1 Receptor Antagonist Start: End: take 1 capsule by mouth at bedtime Diphenhydramine Hcl (Sleeping) 50 mg capsule Discontinued 50 MG PO AT BEDTIME August 04, 2023 12:00am August 20, 2023 8:47am diphenhydramine HCl (UNISOM SLEEPGELS ORAL) Take by mouth daily at bedtime. Active diphenhydramine HCl (UNISOM SLEEPGELS ORAL) Take by mouth daily at bedtime. 0 Active diphenhydramine HCl (UNISOM SLEEPGELS ORAL) Take by mouth. 0 Active Comment on above: Take by mouth. Take by mouth daily at bedtime. doxylamine succinate 25 mg oral tablet (6 sources) Start: End: take 25 mg by mouth once daily Doxylamine Succinate Discontinued 25 MG PO DAILY August 04, 2019 12:00am August 06, 2019 7:49am ondansetron 4 mg oral tablet (7 sources) Serotonin-3 Receptor Antagonist Start: End: take 1 tablet by mouth every eight hours as needed ondansetron (ZOFRAN) 4 mg tablet Take 1 tablet by mouth every 8 hours as needed for nausea/vomiting. 30 tablet 1 01/27/2023 06/23/2023 Discontinued (Discontinued by Patient) Comment on above: Take 1 tablet by yaz every 8 hours as needed for nausea/vomiting. oxyCODONE hydrochloride 5 mg oral tablet (6 sources) Opioid Agonist Start: End: take 5 mg by mouth every six hours as needed Oxycodone Discontinued 5 MG PO EVERY 6 HOURS NEEDED 8 7 August 06, 2019 August 13, 2019 12:02am progesterone 50 mg/ml injectable solution (6 sources) Progesterone Start: End: inject 1 dose by intramuscular injection once daily Progesterone Discontinued 1 DOSE IM DAILY January 19, 2019 12:00am August 06, 2019 7:49am Problems Active Problems Problem Classification Problem Date Documented Date Episodic/Chronic Abdominal pain (2 sources) Left lower quadrant pain; Translations: [Left lower quadrant pain] 08-17-2023 Episodic Acute posthemorrhagic anemia (8 sources) Anemia due to blood loss; Translations: [Acute posthemorrhagic anemia] Episodic Allergic reactions (3 sources) Allergy status to other antibiotic agents status; Translations: [Allergy status to other antibiotic agents status] Onset: 07-05-2018 Episodic Anxiety disorders (20 sources) Anxiety disorder, unspecified; Translations: [Social phobia] Onset: 07-10-2020 02-08-2021 Chronic Complications of surgical procedures or medical care (6 sources) Postoperative fever; Translations: [Postprocedural fever] 07-10-2018 Episodic Early or threatened labor (1 source) Uterine contractions present; Translations: [False labor, unspecified] Episodic Headache; including migraine (6 sources) Migraine; Translations: [Migraine, unspecified, not intractable, without status migrainosus] 08-29-2020 Chronic Inflammatory diseases of female pelvic organs (2 sources) Female pelvic peritoneal adhesions (postinfective); Translations: [Female pelvic peritoneal adhesions (postinfective)] Onset: 07-05-2018 Episodic Lymphadenitis (6 sources) Bilateral hilar adenopathy; Translations: [Localized enlarged lymph nodes] 07-10-2018 Episodic Malposition; malpresentation (7 sources) Breech presentation; Translations: [Maternal care for breech presentation, not applicable or unspecified] Episodic Nonspecific chest pain (1 source) Chest pain; Translations: [Chest pain, unspecified] Episodic Other aftercare (1 source) Other exterminator (current) drug therapy; Translations: [OTH SHELTER CURRENT DRUG THERAPY] Onset: 07-10-2020 Episodic Other complications of ; puerperium affecting management of mother (3 sources) Deliveries by ; Translations: [Delivery by section] Episodic Other complications of ; puerperium affecting management of mother (7 sources) Advanced maternal age ; Translations: [ with maternal age 40 years or more] Episodic Other complications of ; puerperium affecting management of mother (1 source) Encounter for delivery without indication; Translations: [ delivery, without mention of indication, delivered, with or without mention of antepartum condition] 08-20-2023 Episodic Other complications of (9 sources) High risk ; Translations: [Supervision of with grand multiparity, third trimester] 09-12-2021 Episodic Other complications of (1 source) Supervision of with grand multiparity, third trimester; Translations: [Supervision of other high-risk ] Episodic Other complications of (1 source) Pain in female pelvis; Translations: [Other specified related conditions, unspecified trimester] 02-04-2023 Episodic Other complications of (3 sources) Supervision of elderly multigravida, unspecified trimester; Translations: [Elderly multigravida, unspecified as to episode of care or not applicable] 08-04-2023 Episodic Other complications of (1 source) Supervision of with history of infertility, third trimester; Translations: [Supervision of with history of infertility, third trimester] Onset: 08-26-2023 Episodic Other female genital disorders (2 sources) Intrauterine synechiae; Translations: [Intrauterine synechiae] Onset: 07-05-2018 Episodic Other female genital disorders (2 sources) Malposition of uterus; Translations: [Malposition of uterus] Onset: 07-05-2018 Episodic Other female genital disorders (4 sources) Polyp of corpus uteri; Translations: [Polyp of corpus uteri] Onset: 06-27-2018 Episodic Other female genital disorders (2 sources) Other specified noninflammatory disorders of uterus; Translations: [Other specified noninflammatory disorders of uterus] Onset: 07-05-2018 Episodic Other inflammatory condition of skin (1 source) Psoriasis, unspecified; Translations: [PSORIASIS UNSPECIFIED] Onset: 07-10-2020 Chronic Other lower respiratory disease (1 source) Cough; Translations: [Cough] Episodic Other lower respiratory disease (6 sources) Dyspnea; Translations: [Dyspnea, unspecified] 08-02-2021 Episodic Other lower respiratory disease (6 sources) Productive cough ; Translations: [Productive cough] 07-10-2018 Episodic Other nervous system disorders (5 sources) Postoperative pain ; Translations: [Other acute postprocedural pain] 09-04-2021 Episodic Other and delivery including normal (3 sources) state; Translations: [Encounter for care and examination of mother immediately after delivery] Episodic Residual codes; unclassified (1 source) Gestation period, 31 weeks; Translations: [31 weeks gestation of ] Episodic Residual codes; unclassified (2 sources) Gestation period, 34 weeks; Translations: [34 weeks gestation of ] Episodic Residual codes; unclassified (4 sources) Gestation period, 36 weeks; Translations: [36 weeks gestation of ] Episodic Residual codes; unclassified (3 sources) Gestation period, 37 weeks; Translations: [37 weeks gestation of ] Episodic Residual codes; unclassified (6 sources) Gestation period, 38 weeks; Translations: [38 weeks gestation of ] Episodic Residual codes; unclassified (2 sources) 38 weeks gestation of ; Translations: [ state, incidental] Episodic Residual codes; unclassified (1 source) Gestation period, 10 weeks; Translations: [10 weeks gestation of ] 02-04-2023 Episodic Residual codes; unclassified (1 source) Gestation period, 12 weeks; Translations: [12 weeks gestation of ] 02-18-2023 Episodic Residual codes; unclassified (1 source) Gestation period, 16 weeks; Translations: [16 weeks gestation of ] 03-19-2023 Episodic Residual codes; unclassified (1 source) Gestation period, 30 weeks; Translations: [30 weeks gestation of ] 06-23-2023 Episodic Residual codes; unclassified (2 sources) 36 weeks gestation of ; Translations: [ state, incidental] 08-04-2023 Episodic Unclassified (2 sources) CONTACT WITH AND SUSPECTED EXP COVID-19; Translations: [CONTACT WITH AND SUSPECTED EXP COVID-19] Onset: 07-01-2020 Unclassified (7 sources) Normal labor; Translations: [Active labor at term] Unclassified (5 sources) [facility] Education - COMMON Onset: 02-18-2023 02-18-2023 Unclassified (5 sources) Education - [place] Onset: 02-18-2023 02-18-2023 Unclassified (2 sources) heart finding; Translations: [Abnormal heart rate or rhythm] 08-17-2023 Unclassified (2 sources) Labor finding; Translations: [Active labor] 08-17-2023 Viral infection (6 sources) Viral disease; Translations: [Viral infection, unspecified] 08-02-2021 Episodic Past or Other Problems Problem Classification Problem Date Documented Date Episodic/Chronic Bacterial infection; unspecified site (20 sources) Bacteria present; Translations: [Streptococcus, group B, as the cause of diseases classified elsewhere] Onset: 07-31-2019 07-31-2019 Episodic Hemorrhage during ; abruptio placenta; placenta previa (6 sources) Bleeding from female genital tract during ; Translations: [Antepartum hemorrhage, unspecified, unspecified trimester] Onset: 08-09-2023 02-04-2023 Episodic Other complications of (20 sources) Multigravida of advanced maternal age; Translations: [Supervision of elderly multigravida, unspecified trimester] Onset: 02-16-2019 Episodic Other complications of (15 sources) Decreased fertility; Translations: [Supervision of resulting from assisted reproductive technology, unspecified trimester] Onset: 02-16-2019 Episodic Other complications of (20 sources) Anxiety; Translations: [Other mental disorders complicating the puerperium] Onset: 02-08-2021 03-07-2021 Episodic Other complications of (20 sources) Supervision of resulting from assisted reproductive technology, unspecified trimester; Translations: [ resulting from assisted reproductive technology] Onset: 02-16-2019 02-27-2021 Episodic Other complications of (3 sources) Other mental disorders complicating the puerperium; Translations: [Mental disorders of mother, condition or complication] Onset: 02-08-2021 03-07-2021 Episodic Other female genital disorders (20 sources) H/O: premature delivery; Translations: [Personal history of pre-term labor] Onset: 02-16-2019 Episodic Other screening for suspected conditions (not mental disorders or infectious disease) (20 sources) Patient encounter status; Translations: [Encounter for nonprocreative screening for genetic disease carrier status] Onset: 02-17-2019 02-17-2019 Episodic Previous (20 sources) ; Translations: [Maternal care for unspecified type scar from previous delivery] Onset: 02-27-2021 Episodic Results Test Name Value Interpretation Reference Range Facility [facility] ARIAN TOLEDO ([id number]) 1980 F Date Time Provider Department 08/17/24 DL DELEON During your visit today, we recorded the following information about you: Allergies As of Date: 08/17/2024 Noted Allergy Reaction DOXYCYCLINE 12/28/2012 2 - Rash ZITHROMAX (AZITHROMYCIN) 10/20/2016 7 - Swelling Date Reviewed: 08/10/2023 Reviewed by: Susana Cota MD - Fully Assessed Prescriptions as of 08/21/2024 - sertraline (ZOLOFT) 50 mg tablet take 1 tablet by mouth once daily IN ADDITION TO 25 MG TABLET FOR TOTAL DOSE OF 75 MG - sertraline (ZOLOFT) 25 mg tablet take 1 tablet by mouth once daily IN ADDITION TO 50 MG TABLET FOR A TOTAL DOSE OF 75 MG - diphenhydramine HCl (UNISOM SLEEPGELS ORAL) Take by mouth daily at bedtime. - PNV no.95/ferrous fum/folic ac ( ORAL) Take 1 tablet by mouth once daily. Problem List As Of Date 08/17/2024 Noted Resolved Antepartum multigravida of advanced maternal ag*02/16/2019 resulting from assisted reproductive *02/16/2019 History of delivery [Z87.51] 02/16/2019 Screening for genetic disease carrier status [Z*02/17/2019 Positive GBS test [B95.1] 07/31/2019 anxiety [O99.345, F41.8] 02/08/2021 Social phobia [F40.10] 02/08/2021 with history of section, ant*02/27/2021 Encounter Status:Closed by ISI GOETZ [facility]21/24 [facility] Bas[facility] percentageOrdered B y: Brandi Ponce on 08-19-2023 Hemoglobin (Bld) [Mass/Vol] 8.0 g/dL 12.0-15.0 [facility] WBC (Bld) [#/Vol] 8.1 10*3/uL 4.4-11.0 [facility] CBC-Complete Blood Cnt No Di ffon 08-19-2023 Erythrocyte distribution width (RBC) [Ratio] 13.6 % Normal 11.6-14.6 [facility] Comment on above: Performed By: #### L 100.0500 #### [facility] [address] [place], [address] Hematocrit (Bld) [Volume fraction] 25.7 % Low 37-47 [facility] Comment on above: Performed By: #### L 100.0500 #### [facility] [address] [place], [address] Hemoglobin (Bld) [Mass/Vol] 8.0 g/dL Low 12.0-15.0 [facility] Comment on above: Performed By: #### L 100.0500 #### [facility] [address] [place], [address] MCH (RBC) [Entitic mass] 28.3 pg Normal 27.0-32.0 [facility] Comment on above: Performed By: #### L 100.0500 #### [facility] [address] [place], [address] MCHC (RBC) [Mass/Vol] 31.1 g/dL Low 32-36 [facility] Comment on above: Performed By: #### L 100.0500 #### [facility] [address] [place], [address] MCV (RBC) [Entitic vol] 90.8 fL Normal 81-99 [facility] Comment on above: Performed By: #### L 100.0500 #### [facility] [address] [place], [address] Platelet mean volume (Bld) [Entitic vol] 10.1 fL Normal 6.2-12.0 [facility] Comment on above: Performed By: #### L 100.0500 #### [facility] [address] [place], [address] Platelets (Bld) [#/Vol] 290 10*3/uL Normal 150-450 [facility] Comment on above: Performed By: #### L 100.0500 #### [facility] [address] [place], [address] RBC (Bld) [#/Vol] 2.83 10*6/uL Low 4.2-5.4 [facility] Comment on above: Performed By: #### L 100.0500 #### [facility] [address] [place], [address] RDW SD 44.4 fl High 35.1-43.9 [facility] Comment on above: Performed By: #### L 100.0500 #### [facility] [address] [place], [address] WBC (Bld) [#/Vol] 8.1 10*3/uL Normal 4.4-11.0 [facility] Comment on above: Performed By: #### L 100.0500 #### [facility] [address] [place], [address] Determination of erythrocyte mean corpuscular volume (MCV)Ordered By: Brandi Ponce on 08-19-2023 MCV (RBC) [Entitic vol] 90.8 fL 81-99 [facility] Erythrocyte distribution wid th ratioOrdered By: Brandi Ponce on 08-19-2023 Erythrocyte distribution width (RBC) [Ratio] 13.6 % 11.6-14.6 [facility] Erythrocyte distribution wid th standard deviationOrdered By: Brandi Ponce on 08-19-2023 Erythrocyte distribution width (RBC) [Entitic vol] 44.4 fL 35.1-43.9 [facility] Hematocrit Auto (Bld) [Volum e fraction]Ordered By: Brandi Ponce on 08-19-2023 Hematocrit (Bld) [Volume fraction] 25.7 % 37-47 [facility] - Hematology and Cell countsOrdered By: Brandi Ponce on 08-19-2023 MCH (RBC) [Entitic mass] 28.3 pg 27.0-32.0 [facility] MCHC (RBC) [Mass/Vol] 31.1 g/dL 32-36 [facility] Platelet mean volume (Bld) [Entitic vol] 10.1 fL 6.2-12.0 [facility] Platelets (Bld) [#/Vol] 290 10*3/uL 150-450 [facility] RBC Auto (Bld) [#/Vol]Ordere d By: Brandi Ponce on 08-19-2023 RBC (Bld) [#/Vol] 2.83 10*6/uL 4.2-5.4 [facility] CBC-Complete Blood Cnt No Di ffon 08-18-2023 Erythrocyte distribution width (RBC) [Ratio] 13.3 % Normal 11.6-14.6 [facility] Comment on above: Performed By: #### B TS, L100.0100 #### [facility] [address] [place], [address] Hematocrit (Bld) [Volume fraction] 25.3 % Low 37-47 [facility] Comment on above: Performed By: #### B TS, L100.0100 #### [facility] [address] [place], [address] Hemoglobin (Bld) [Mass/Vol] 8.2 g/dL Low 12.0-15.0 [facility] Comment on above: Performed By: #### B TS, L100.0100 #### [facility] [address] [place], [address] MCH (RBC) [Entitic mass] 29.2 pg Normal 27.0-32.0 [facility] Comment on above: Performed By: #### Farideh GAN, L100.0100 #### [facility] [address] [place], [address] MCHC (RBC) [Mass/Vol] 32.4 g/dL Normal 32-36 [facility] Comment on above: Performed By: #### Farideh GAN, L100.0100 #### [facility] [address] [place], [address] MCV (RBC) [Entitic vol] 90.0 fL Normal 81-99 [facility] Comment on above: Performed By: #### Farideh GAN, L100.0100 #### [facility] [address] [place], [address] Platelet mean volume (Bld) [Entitic vol] 10.4 fL Normal 6.2-12.0 [facility] Comment on above: Performed By: #### Farideh GAN, L100.0100 #### [facility] [address] [place], [address] Platelets (Bld) [#/Vol] 273 10*3/uL Normal 150-450 [facility] Comment on above: Performed By: #### Farideh GAN, L100.0100 #### [facility] [address] [place], [address] RBC (Bld) [#/Vol] 2.81 10*6/uL Low 4.2-5.4 [facility] Comment on above: Performed By: #### Farideh GAN, L100.0100 #### [facility] [address] [place], [address] RDW SD 43.4 fl Normal 35.1-43.9 [facility] Comment on above: Performed By: #### Farideh GAN, L100.0100 #### [facility] [address] [place], [address] WBC (Bld) [#/Vol] 10.2 10*3/uL Normal 4.4-11.0 [facility] Comment on above: Performed By: #### B , L100.0100 #### [facility] [address] [place], [address] Erythrocyte distribution width (RBC) [Ratio] 13.4 % Normal 11.6-14.6 [facility] Comment on above: Order Comment: Comme nts: Day #1 Reason for Laboratory Test Performed By: #### L 100.0500 #### [facility] [address] [place], [address] Hematocrit (Bld) [Volume fraction] 24.6 % Low 37-47 [facility] Comment on above: Order Comment: Comme nts: Day #1 Reason for Laboratory Test Performed By: #### L 100.0500 #### [facility] [address] [place], [address] Hemoglobin (Bld) [Mass/Vol] 7.9 g/dL Low 12.0-15.0 [facility] Comment on above: Order Comment: Comme nts: Day #1 Reason for Laboratory Test Performed By: #### L 100.0500 #### [facility] [address] [place], [address] MCH (RBC) [Entitic mass] 28.6 pg Normal 27.0-32.0 [facility] Comment on above: Order Comment: Comme nts: Day #1 Reason for Laboratory Test Performed By: #### L 100.0500 #### [facility] [address] [place], [address] MCHC (RBC) [Mass/Vol] 32.1 g/dL Normal 32-36 [facility] Comment on above: Order Comment: Comme nts: Day #1 Reason for Laboratory Test Performed By: #### L 100.0500 #### [facility] [address] [place], [address] MCV (RBC) [Entitic vol] 89.1 fL Normal 81-99 [facility] Comment on above: Order Comment: Comme nts: Day #1 Reason for Laboratory Test Performed By: #### L 100.0500 #### [facility] [address] [place], [address] Platelet mean volume (Bld) [Entitic vol] 9.5 fL Normal 6.2-12.0 [facility] Comment on above: Order Comment: Comme nts: Day #1 Reason for Laboratory Test Performed By: #### L 100.0500 #### [facility] [address] [place], [address] Platelets (Bld) [#/Vol] 235 10*3/uL Normal 150-450 [facility] Comment on above: Order Comment: Comme nts: Day #1 Reason for Laboratory Test Performed By: #### L 100.0500 #### [facility] [address] [place], [address] RBC (Bld) [#/Vol] 2.76 10*6/uL Low 4.2-5.4 [facility] Comment on above: Order Comment: Comme nts: Day #1 Reason for Laboratory Test Performed By: #### L 100.0500 #### [facility] [address] [place], [address] RDW SD 43.1 fl Normal 35.1-43.9 [facility] Comment on above: Order Comment: Comme nts: Day #1 Reason for Laboratory Test Performed By: #### L 100.0500 #### [facility] [address] [place], [address] WBC (Bld) [#/Vol] 9.1 10*3/uL Normal 4.4-11.0 [facility] Comment on above: Order Comment: Comme nts: Day #1 Reason for Laboratory Test Performed By: #### L 100.0500 #### [facility] [address] [place], [place], [address] Abdomen Single View (Portabl e)on 08-17-2023 Abdomen Single View (Portable) [facility] Imaging Services [address] [place], [place] [address] Abdomen Single View (Portable) MR#: [id number] Acct: [id number] Name: ARIAN TOLEDO Rep #: [id number] : 1980 F 43 From: Mana Priest PCP: Dr. Elena Hawkins MD Status: DIS IN Study: Abdomen Single View (Portable) Date of Exam: 0 08/17/23 Exam# [id number] Ordering Dr: Kristyn Caceres DO ADDENDUM by Dr. Mana Carr MD on 08/17/23 at 0604 [id number] INDICATION: no count prior to stat c/s EXAMINATION/TECHNIQUE: X-RAY - XR Abdomen 1 View portable. 4:49 AM. COMPARISON: None. FINDINGS: Bowel gas pattern is nonobstructive. No radiopaque foreign body identified. 08/17/23 0604 Date cc: Dr. Elena Hawkins MD; Dr. Kristyn Caceres, DO * Signed ADDENDUM by Dr. Mana Carr MD on 08/17/23 at 0604 [id number] INDICATION: no count prior to stat c/s EXAMINATION/TECHNIQUE: X-RAY - XR Abdomen 1 View portable. 4:49 AM. COMPARISON: None. FINDINGS: Bowel gas pattern is nonobstructive. No radiopaque foreign body identified. 08/17/23 0604 Date cc: Dr. Elena Hawkins MD; Dr. Kristyn Caceres, DO * Signed ADDENDUM by Dr. Mana Carr MD on 08/17/23 at 0604 RAD/Abdomen Single View (Portable) IMPRESSION: No radiopaque foreign body identified. N.B. : Debbie Rangel OT, confirmed on 08/17/2023 06:09:34 (ET) that the referring physician received the results and does not require a verbal communication. Electronically Signed: Mana Carr MD at 6:04 EDT , 11/22/23 1635 Date cc: Dr. Elena Hawkins MD; Dr. Kristyn Caceres, DO * Signed ADDENDUM by Dr. Mana Carr MD on 08/17/23 at 0604 RAD/Abdomen Single View (Portable) IMPRESSION: No radiopaque foreign body identified. N.B. : Debbie Rangel OT, confirmed on 08/17/2023 06:09:34 (ET) that the referring physician received the results and does not require a verbal communication. Electronically Signed: Mana Carr MD at 6:04 EDT , 08/17/23 0616 Date cc: Dr. Elena Hakwins MD; Dr. Kristyn Caceres DO * Signed We are attempting to reach an attending provider to discuss findings. An addendum with communication details will be sent when the communication is complete. [id number] INDICATION: no count prior to stat c/s EXAMINATION/TECHNIQUE: X-RAY - XR Abdomen 1 View portable. 4:49 AM. COMPARISON: None. FINDINGS: Bowel gas pattern is nonobstructive. No radiopaque foreign body identified. RAD/Abdomen Single View (Portable) IMPRESSION: No radiopaque foreign body identified. Electronically Signed: Mana Carr MD at 6:04 EDT , CC: Dr. Elena Hawkins MD; Dr. Kristyn Caceres DO Circular Saw Edge Fuser: Signed Normal [facility] Absolute lymphocyte countOrd ered By: Kristyn Caceres on 08-17-2023 Lymphocytes Auto (Unsp spec) [#/Vol] 2.16 10*3/uL 0.83-4.51 [facility] Automated lymphocyte count a s percentage of total leukocytesOrdered By: Kristyn Caceres on 08-17-2023 Lymphocytes/100 WBC Auto (Unsp spec) 19.1 % 19-41 [facility] Basophil percentageOrdered B y: Kristyn Caceres on 08-17-2023 Basophils/100 WBC (Bld) 0.4 % 0-1 [facility] Eosinophils/100 WBC (Bld) 2.6 % 0-5 [facility] Monocytes/100 WBC (Bld) 8.8 % 0-10 [facility] Neutrophils (Bld) [#/Vol] 7.8 10*3/uL 2.0-7.7 [facility] Neutrophils/100 WBC (Bld) 68.8 % 47-70 [facility] CBC W/Diff, Automatedon Absolute Lymph 2.16 X10 3/uL Normal 0.83-4.51 [facility] Comment on above: Performed By: #### Farideh GAN, L100.0100 #### [facility] [address] [place], [address] Absolute Neut 7.8 X10 3/uL High 2.0-7.7 [facility] Comment on above: Performed By: #### Farideh GAN, L100.0100 #### [facility] [address] [place], [address] Basophils/100 WBC (Bld) 0.4 % Normal 0-1 [facility] Comment on above: Performed By: #### Farideh GAN, L100.0100 #### [facility] [address] [place], [address] Eosinophils/100 WBC (Bld) 2.6 % Normal 0-5 [facility] Comment on above: Performed By: #### Farideh GAN, L100.0100 #### [facility] [address] [place], [address] Erythrocyte distribution width (RBC) [Ratio] 13.1 % Normal 11.6-14.6 [facility] Comment on above: Performed By: #### Farideh GAN, L100.0100 #### [facility] [address] [place], [address] Hematocrit (Bld) [Volume fraction] 38.6 % Normal 37-47 [facility] Comment on above: Performed By: #### Farideh GAN, L100.0100 #### [facility] [address] [place], [address] Hemoglobin (Bld) [Mass/Vol] 12.8 g/dL Normal 12.0-15.0 [facility] Comment on above: Performed By: #### Farideh GAN, L100.0100 #### [facility] [address] [place], [address] IG% 0.300 Normal 0.0-0.9 [facility] Comment on above: Result Comment: IG% - Immature Granulocytes (promyelocytes, myelocytes and metamyelocytes) > 1% indicates that a LEFT SHIFT is Present. Performed By: #### Farideh GAN, L100.0100 #### [facility] [address] [place], [address] Lymphocytes/100 WBC (Bld) 19.1 % Normal 19-41 [facility] Comment on above: Performed By: #### Farideh GAN, L100.0100 #### [facility] [address] [place], [address] MCH (RBC) [Entitic mass] 29.2 pg Normal 27.0-32.0 [facility] Comment on above: Performed By: #### Farideh GAN, L100.0100 #### [facility] [address] [place], [address] MCHC (RBC) [Mass/Vol] 33.2 g/dL Normal 32-36 [facility] Comment on above: Performed By: #### Farideh GAN, L100.0100 #### [facility] [address] [place], [address] MCV (RBC) [Entitic vol] 87.9 fL Normal 81-99 [facility] Comment on above: Performed By: #### Farideh GAN, L100.0100 #### [facility] [address] [place], [address] Monocytes/100 WBC (Bld) 8.8 % Normal 0-10 [facility] Comment on above: Performed By: #### Farideh GAN, L100.0100 #### [facility] [address] [place], [address] Neutrophils/100 WBC (Bld) 68.8 % Normal 47-70 [facility] Comment on above: Performed By: #### Farideh GAN, L100.0100 #### [facility] [address] [place], [address] Nucleated RBC (Bld) [#/Vol] 0 10*3/uL Normal 0-5 [facility] Comment on above: Performed By: #### Farideh GAN, L100.0100 #### [facility] [address] [place], [address] Platelet mean volume (Bld) [Entitic vol] 10.1 fL Normal 6.2-12.0 [facility] Comment on above: Performed By: #### Farideh GAN, L100.0100 #### [facility] [address] [place], [address] Platelets (Bld) [#/Vol] 341 10*3/uL Normal 150-450 [facility] Comment on above: Performed By: #### Farideh GAN, L100.0100 #### [facility] [address] [place], [address] RBC (Bld) [#/Vol] 4.39 10*6/uL Normal 4.2-5.4 [facility] Comment on above: Performed By: #### Farideh GAN, L100.0100 #### [facility] [address] [place], [address] RDW SD 41.8 fl Normal 35.1-43.9 [facility] Comment on above: Performed By: #### Farideh GAN, L100.0100 #### [facility] [address] [place], [address] WBC (Bld) [#/Vol] 11.3 10*3/uL High 4.4-11.0 [facility] Comment on above: Performed By: #### Farideh GAN, L100.0100 #### [facility] [address] [place], [address] H AND P Exam - OB/GYNon 05-0 H&P Exam - TABLE CUT OFF SAW OPERATOR [facility] Medical Records Department [address] [place] [address] H P Exam - TABLE CUT OFF SAW OPERATOR 08/17/23 0213 MR#: [id number] Acct: [id number] Name: ARIAN TOLEDO Rep #: [id number] : 1980 43 From: Kristyn Caceres DO PCP: Dr. Elena Hawkins MD Status:ADM IN Location: [id number] HPI - General General Date of Admission: 08/17/23 Date of Service: 08/17/23 Chief Complaint: active labor HPI Narrative ARIAN TOLEDO, is a 43 F who presents in active labor with ctx's q 2-3 min and 7 cm dilated with BBOW. No bleeding or lof. Good FM. She offers no other complaints. [facility] Medical History Anxiety delivery delivered History of pre-term labor Infertility Migraines depression Home Medications vits,calcium no.78-iron fumarate-folic acid 29 mg-1 mg tablet 1 tab PO DAILY 08/04/19 [History Last Taken 08/03/23 21:00] sertraline 25 mg tablet 75 mg PO DAILY Check with primary doctor 07/25/21 [History Last Taken 08/03/23 21:00 75 mg] sertraline 50 mg tablet 50 mg PO DAILY Check with primary doctor 07/25/21 [History Last Taken Unknown] docusate sodium 100 mg capsule (Colace) 100 mg PO BID #30 caps 09/04/21 [Rx Last Taken Unknown] aspirin 81 mg chewable tablet (Aspirin Childrens) 1 tab PO DAILY 08/04/23 [History Last Taken 08/03/23 21:00 1 TAB] diphenhydramine HCl 50 mg capsule (Sleeping) 50 mg PO QHS 08/04/23 [History Last Taken 08/03/23 21:00 50 mg] Allergy/AdvReac Type Severity Reaction Status Date / Time azithromycin [From Zithromax] Allergy Chest Verified 08/04/23 15:10 tightness doxycycline Allergy Chest Verified 08/04/23 15:10 tightness Surgical History Delivery by section History of gynecologic surgery Previous section Social History Smoking Status: Never smoker History Elective abortions Hx Para 3 Spontaneous abortions Hx # Term Pregnancies Ectopic pregnancies Hx # Pregnancies Multiple births # of living children NST FHR Rate Baby A Baseline: 150 Variability:: Moderate Accelerations:: None Decelerations:: Variable Uterine Activity:: ctx's q 2-3 min Vital Signs Vital Signs Vital Signs: 08/17/23 01:51 08/17/23 01:51 08/17/23 02:07 Temperature Temperature Source Pulse Rate 96 103 H Respiratory Rate Blood Pressure 108/69 Blood Pressure Mean BP Systolic 108 BP Diastolic 69 Blood Pressure Source Blood Pressure Position Blood Pressure Location Pulse Ox Oxygen Delivery Method 08/17/23 02:07 08/17/23 02:11 08/17/23 02:12 Temperature Temperature Source Pulse Rate 99 Respiratory Rate Blood Pressure 130/82 H Blood Pressure Mean BP Systolic 130 BP Diastolic 82 Blood Pressure Source Blood Pressure Position Blood Pressure Location Pulse Ox 100 Oxygen Delivery Method 08/17/23 02:11 08/17/23 02:12 08/17/23 01:55 Temperature 99.1 F Temperature Source Temporal Pulse Rate 106 H 98 Respiratory Rate 16 Blood Pressure 108/69 Blood Pressure Mean 82 BP Systolic BP Diastolic Blood Pressure Source Monitor Blood Pressure Position Semi-Fowlers Blood Pressure Location Left Arm Pulse Ox 100 100 Oxygen Delivery Method Room Air Weight Weight: 149 lb 0.52 oz Body Mass Index (BMI) 29.0 Physical Exam Const alert and no apparent distress Constitutional Narrative: Uncomfortable HEENT normocephalic Resp normal respiratory effort Narrative: Cvx 7/90/0 BBOW vertex Labs Labs Labs: Blood Type A POSITIVE Antibody Screen NEGATIVE Hct 38.6 % (37-47) Hgb 12.8 g/dL (12.0-15.0) Syphilis Total Ab Non-reactive Rubella IgG Antibody Reactive (Nonreactive) Hepatitis C Ab (EIA) <0.1 s/co ratio (0.0-0.9) Rhogam given: No Assessment Plan (1) 38 weeks gestation of : PLAN: Admit to L D for active labor. The patient requested to proceed with TOLAC given active labor. Discussed 2 prior sections is not an absolute contraindication to trying for a vaginal delivery. Discussed risk of uterine rupture. Discussed r/b/a repeat section versus TOLAC and the patient desires a TOLAC given 7 cm with BBOW. Anesthesia at bedside for epidural. Will AROM after epidural. Pelvis adequate and expected EFW < 4500 g. GBS negative. (2) Active labor: (3) Active labor at term: (4) Advanced maternal age (AMA), 40 years or greater: (5) Previous delivery affecting : 08/17/23 0509 Cosigner Signature (if applicable): (more content not included)... Normal [facility] Immature granulocytes/100 WB C Auto (Bld)Ordered By: Kristyn Caceres on 08-17-2023 Immature granulocytes/100 WBC (Bld) 0.300 % 0.0-0.9 [facility] Comment on above: IG% - Immature Granu locytes (promyelocytes, myelocytes and metamyelocytes) > 1% indicates that a LEFT SHIFT is Present. L509.8000on 08-17-2023 Syphilis Abs Non-Reactive Normal [facility] Comment on above: Performed By: #### L 509.8000 #### [facility] [address] [facility] [address] [place], [place], [address] Laboratory - Hematology and Cell countsOrdered By: Kristyn Caceres on 08-17-2023 Nucleated RBC/100 WBC (Bld) [Ratio] 0 % 0-5 [facility] Operative Reporton 4 Operative Report [facility] Medical Records Department [address] [place] [address] Operative Report 08/17/23 0517 MR#: [id number] Acct: [id number] Name: ARIAN TOLEDO Rep #: [id number] : 1980 43 From: Kristyn Caceres DO PCP: Dr. Elena Hawkins MD Status:DIS IN Location: [id number] Problems Associated Problem List Diagnoses (1) Non-reassuring heart rate or rhythm affecting management of fetus: (2) LLQ pain: (3) Active labor: (4) AMA (advanced maternal age) multigravida 35+: (5) Previous delivery, antepartum: (6) 38 weeks gestation of : Report of Operation Date of Procedure: 08/17/23 Pre-Operative Diagnosis: 38 week gestation, prior section, active labor, pain, non reassuring heart rate tracing Post-Operative Diagnosis: As above Surgery/Procedure Performed:: Stat PLTCS via pfannenstiel incision Description of Surgical Findings:: Rectus muscles adhered in the midline. Normal appearing uterus and bilateral adnexa. VMI in cephalic presentation with clear fluid and apgars of 5, 7, 8. Normal appearing placenta. Surgeon: Kristyn Caceres applications scientist: Kiersten WILKS Type of Anesthesia: General Anesthesiologist: Izaiah Special Medications: None Specimen's removed: Placenta Bilateral fallopian tubes Drains: Pruitt Estimated Blood Loss (mL): 500 Fluids Replaced: 700 Description of Procedure: Indications: The patient presented in active labor at 7 cm and quickly progressed to 9 cm, and requested TOLAC. However heart rate decelerations were noted and the patient began having severe LLQ pain. She was taken to the OR given non reassuring heart rate tracing. Procedure: The patient was taken to the operating room where the heart rate was unable to be obtained. A nurse was instructed to get the bedside TAUS. While waiting for the ultrasound, the patient again voiced that she had severe LLQ pain. She was prepped with Betadine and draped in the dorsal supine position with a leftward tilt. The epidural was not adequate and she was having pain. Given the concern for uterine rupture, the decision was made for the patient to be placed under general anesthesia. Once the patient was under general anesthesia a Pfannenstiel skin incision was made with the scalpel. The incision was carried down to the underlying layer of fascia. The fascia was incised with a scalpel in the midline. The fascial incision was extended laterally with traction. The rectus muscles were noted to be adhered in the midline. The rectus muscles were slightly incised in the midline using the scalpel along the scarring enough to separate the rectus muscles bluntly. The peritoneum was entered bluntly with good visualization of the bladder. The peritoneal incision was extended bluntly with lateral traction. A bladder blade was inserted. A low transverse incision was made on the uterus with a scalpel. The uterine incision was extended using cephalad and caudad traction. The head of the infant was elevated out of the pelvis, and a viable male was delivered without any traction, force, or delay through the hysterotomy. The cord was clamped and cut immediately and the infant was handed off to the waiting nursery staff. The placenta was removed with manual extraction. The uterus was exteriorized. The uterus was cleared of all clot and debris. The hysterotomy was closed with 1-0 Vicryl in a running locked fashion. Several additional eimhcu-uy-jxovt sutures were placed for hemostasis. There was a small extension along the right side into the cervix that was still bleeding. An additional [id number] suture was placed and hemoblast was placed over the extension. Pressure was applied and then hemostasis was noted. Hemostasis was noted along the hysterotomy. There was a 3 x 2 cm area on the anterior uterine serosa about 4 cm above the hysterotomy that continued to ooze. Hemoblast and pressure was placed over that serosal area and hemostasis was confirmed. The rectus muscles were inspected and made hemostatic using the Bovie cautery and hemoblast with pressure. The peritoneum was unable to be closed. Once the subfascial space was noted to be hemostatic the fascia was closed with STRATAFIX in a running fashion. The subcutaneous space was irrigated and made hemostatic with the Bovie cautery. The subcutaneous space was reapproximated using 3-0 Vicryl. The skin was closed with 4 Monocryl in a subcuticular fashion. A silver dressing was placed. An x-ray was performed at the end of the procedure given the section was stat in nature, and no count was performed prior to the section. Kiersten SYSTEM SPECIALIST was present starting at uterine closure and assisted with closure. Grafts/Implants Used: None Procedure Stop Time: 04:55 Complications None Admit VTE Documentation VTE Present on Admission: No 08/17/23 0532 (more content not included)... Normal [facility] Pathology Specimen OBon 0 PATH. Spec OB SEE PATHOLOGY REPORT Normal [facility] Comment on above: Order Comment: Comme nts: STITCH IN RIGHT TUBESend Specimen For (Specify): Studies @ [facility] Lab:RoutineTime of Procedure: 0313Date of Procedure: 08/17/23Reason specimen being sent to pathology (Hx/complications):ROUTINEType of specimen: Fallopian TubeType of procedure performed: Tubal Ligation Result Comment: Spec imen submitted to Anatomical Pathology Department for testing. Performed By: #### B TS, L100.0100 #### [facility] [address] [place], [place], [address] Serum Treponema species anti body detectionOrdered By: Kristyn Caceres on 08-17-2023 Treponema sp Ab Ql (S) Non-Reactive [facility] Type AND Screenon 08-17-2023 Ab SCREEN GEL Negative Normal [facility] Comment on above: Order Comment: S Performed By: #### B TS, L100.0100 #### [facility] [address] [place], [place], [address] Surgery Specimen Level IIon 08-16-2023 Surgery Specimen Level II Patient Age/Sex Location Account Attending Physician ARIAN TOLEDO 43/F [id number] Dr. Kristyn Caceres DO Specimen: [id number] Received: 08/17/23 Status: ARRON Ott Num: [id number] Spec Type: FALL TUBES Subm Dr: Dr. Kristyn Caceres, DO HEADER OPERATION: Tubal ligation PRE-OP DIAGNOSIS: Sterilization TISSUE SUBMITTED: Fallopian tubes- stitch in right tube MICROSCOPIC DIAGNOSIS Bilateral fallopian tubes, salpingectomy: Bilateral fallopian tubes, no pathologic diagnosis. SJ: 08/18/23 MICROSCOPIC DESCRIPTION Slides are reviewed. GROSS DESCRIPTION Received in fixative is one container labeled with the patient's name and designated bilateral fallopian tubes- stitch right tube. The specimen consists of bilateral fallopian tubes including fimbrial ends. Right fallopian tube measures 8.0 cm in length and 0.6 cm in diameter. The left fallopian tube measures 7.0cm in length and 0.7cm in diameter. A detached piece of fimbral end is also present in the container measuring 1.5 x 1.0 x 0.3cm. Sections reveal unremarkable cut surfaces. Picker Feeder sections are submitted in two cassettes as follows: 1- right fallopian tube, 2- left fallopian tube with detached piece of fimbral end. / SJ:mr 08/17/23 TC:4 CPT: 30347 x2 Patient Age/Sex Location Account Attending Physician ARIAN TOLEDO 43/F WP [id number] Dr. Kristyn Caceres, Signed (signature on file) Dr. Buddy Hebert MD 08/18/23 1219 Normal [facility] Comment on above: Performed By: #### B , L100.0100 #### [facility] [address] [place], [address] URINE OB DIP B/Oon Glucose Ql (U) Negative Neg mg/dL [facility] Interpretation and review of laboratory results Normal [facility] Protein.monoclonal (U) [Mass/Vol] Negative Neg mg/dL [facility] OB Triage Physician Noteon 0 08-05-2023 OB Triage Physician Note [facility] Medical Records Department [address] [place] [address] OB Triage Physician Note 08/05/23 1007 MR#: [id number] Acct: [id number] Name: ARIAN TOLEDO Rep #: [id number] : 1980 43 From: Brandi Ponce MD PCP: Dr. Elena Hawkins MD Status:DEP CLI Y Location: [facility] HPI - General General Date of Admission: 08/04/23 Date of Service: 08/04/23 Chief Complaint: vaginal bleeding HPI Narrative ARIAN TOLEDO, is a 43 F who presents 5 para 1-2-1-3 who presents at 36-1/7 weeks complaining of some vaginal bleeding. She noted small clot and bright red vaginal bleeding in the middle of the afternoon. She had some mild abdominal tightening. She denied any leaking of fluid. She called the office and was instructed to come to labor and delivery. After she presented she had no more active vaginal bleeding. She not have any regular contractions or cramping. She had good movement. Maternal Data Information Gestational age: 36 1/7 [facility] Medical History (Updated 08/04/23 @ 19:00 by Nayeli Miranda CNM) Anxiety delivery delivered History of pre-term labor Infertility Migraines depression Home Medications vits,calcium no.78-iron fumarate-folic acid 29 mg-1 mg tablet 1 tab PO DAILY 08/04/19 [History Last Taken 08/03/23 21:00] sertraline 25 mg tablet 75 mg PO DAILY Check with primary doctor 07/25/21 [History Last Taken 08/03/23 21:00 75 mg] sertraline 50 mg tablet 50 mg PO DAILY Check with primary doctor 07/25/21 [History Last Taken Unknown] docusate sodium 100 mg capsule (Colace) 100 mg PO BID #30 caps 09/04/21 [Rx Last Taken Unknown] aspirin 81 mg chewable tablet (Aspirin Childrens) 1 tab PO DAILY 08/04/23 [History Last Taken 08/03/23 21:00 1 TAB] diphenhydramine HCl 50 mg capsule (Sleeping) 50 mg PO QHS 08/04/23 [History Last Taken 08/03/23 21:00 50 mg] Allergy/AdvReac Type Severity Reaction Status Date / Time azithromycin [From Zithromax] Allergy Chest Verified 08/04/23 15:10 tightness doxycycline Allergy Chest Verified 08/04/23 15:10 tightness Surgical History (Updated 08/04/23 @ 19:00 by Nayeli Miranda CNM) Delivery by section History of gynecologic surgery Previous section Social History Smoking Status: Never smoker History Elective abortions Hx Para 2 Spontaneous abortions Hx # Term Pregnancies Ectopic pregnancies Hx # Pregnancies Multiple births # of living children NST FHR Rate Baby A Baseline: 130 Variability:: Moderate Accelerations:: 15 x 15 Decelerations:: Variable (occasional, category > for greater than 20 min before d/c home) NST Reactive:: Yes FHR Category:: Category I Uterine Activity:: irritability with irreg ctxs Assessment Plan (1) AMA (advanced maternal age) multigravida 35+: (2) Previous delivery, antepartum: (3) 36 weeks gestation of : (4) Vaginal bleeding during : PLAN: No evidence of labor. No active vaginal bleeding after arrival. Labs are stable. heart tones are reassuring. Patient was given 1 dose of betamethasone. Patient was comfortable being discharged home. Will return for any further bleeding, increasing contractions or other concerns. Otherwise follow-up in the office as scheduled. Patient had a cervical exam by Nayeli Miranda CNM and repeat by nursing. 08/05/23 1012 Date Brandi Ponce MD Cosigner Signature (if applicable): Date CC: Dr. Elena Hawkins MD; Dr. Brandi Ponce MD Signed Normal [facility] Absolute lymphocyte countOrd ered By: Brandi Ponce on 08-04-2023 Lymphocytes Auto (Unsp spec) [#/Vol] 1.00 10*3/uL 0.83-4.51 [facility] Activated partial thrombopla stin time (aPTT) in platelet poor plasma by coagulation aOrdered By: Brandi Ponce on 08-04-2023 aPTT Coag (PPP) [Time] 25.3 s 24.1-36.2 [facility] Automated lymphocyte count a s percentage of total leukocytesOrdered By: Brandi Ponce on 08-04-2023 Lymphocytes/100 WBC Auto (Unsp spec) 9.2 % 19-41 [facility] Basophil percentageOrdered B y: Brandi Ponce on 08-04-2023 Basophils/100 WBC (Bld) 0.3 % 0-1 [facility] Eosinophils/100 WBC (Bld) 0.1 % 0-5 [facility] Hemoglobin (Bld) [Mass/Vol] 11.8 g/dL 12.0-15.0 [facility] Monocytes/100 WBC (Bld) 1.7 % 0-10 [facility] Neutrophils (Bld) [#/Vol] 9.6 10*3/uL 2.0-7.7 [facility] Neutrophils/100 WBC (Bld) 88.2 % 47-70 [facility] WBC (Bld) [#/Vol] 10.9 10*3/uL 4.4-11.0 [facility] CBC W/Diff, Automatedon 07-12 Absolute Lymph 1.00 X10 3/uL Normal 0.83-4.51 [facility] Comment on above: Performed By: #### L 100.0100 #### [facility] [address] [place], [address] Absolute Neut 9.6 X10 3/uL High 2.0-7.7 [facility] Comment on above: Performed By: #### L 100.0100 #### [facility] [address] [place], [address] Basophils/100 WBC (Bld) 0.3 % Normal 0-1 [facility] Comment on above: Performed By: #### L 100.0100 #### [facility] [address] [place], [address] Eosinophils/100 WBC (Bld) 0.1 % Normal 0-5 [facility] Comment on above: Performed By: #### L 100.0100 #### [facility] [address] [place], [address] Erythrocyte distribution width (RBC) [Ratio] 13.0 % Normal 11.6-14.6 [facility] Comment on above: Performed By: #### L 100.0100 #### [facility] [address] [place], [address] Hematocrit (Bld) [Volume fraction] 36.1 % Low 37-47 [facility] Comment on above: Performed By: #### L 100.0100 #### [facility] [address] [place], [address] Hemoglobin (Bld) [Mass/Vol] 11.8 g/dL Low 12.0-15.0 [facility] Comment on above: Performed By: #### L 100.0100 #### [facility] [address] [place], [address] IG% 0.500 Normal 0.0-0.9 [facility] Comment on above: Result Comment: IG% - Immature Granulocytes (promyelocytes, myelocytes and metamyelocytes) > 1% indicates that a LEFT SHIFT is Present. Performed By: #### L 100.0100 #### [facility] [address] [place], [address] Lymphocytes/100 WBC (Bld) 9.2 % Low 19-41 [facility] Comment on above: Performed By: #### L 100.0100 #### [facility] [address] [place], [address] MCH (RBC) [Entitic mass] 28.6 pg Normal 27.0-32.0 [facility] Comment on above: Performed By: #### L 100.0100 #### [facility] [address] [place], [address] MCHC (RBC) [Mass/Vol] 32.7 g/dL Normal 32-36 [facility] Comment on above: Performed By: #### L 100.0100 #### [facility] [address] [place], [address] MCV (RBC) [Entitic vol] 87.6 fL Normal 81-99 [facility] Comment on above: Performed By: #### L 100.0100 #### [facility] [address] [place], [address] Monocytes/100 WBC (Bld) 1.7 % Normal 0-10 [facility] Comment on above: Performed By: #### L 100.0100 #### [facility] [address] [place], [address] Neutrophils/100 WBC (Bld) 88.2 % High 47-70 [facility] Comment on above: Performed By: #### L 100.0100 #### [facility] [address] [place], [address] Nucleated RBC (Bld) [#/Vol] 0 10*3/uL Normal 0-5 [facility] Comment on above: Performed By: #### L 100.0100 #### [facility] [address] [place], [address] Platelet mean volume (Bld) [Entitic vol] 9.9 fL Normal 6.2-12.0 [facility] Comment on above: Performed By: #### L 100.0100 #### [facility] [address] [place], [address] Platelets (Bld) [#/Vol] 349 10*3/uL Normal 150-450 [facility] Comment on above: Performed By: #### L 100.0100 #### [facility] [address] [place], [address] RBC (Bld) [#/Vol] 4.12 10*6/uL Low 4.2-5.4 [facility] Comment on above: Performed By: #### L 100.0100 #### [facility] [address] [place], [address] RDW SD 41.0 fl Normal 35.1-43.9 [facility] Comment on above: Performed By: #### L 100.0100 #### [facility] [address] [place], [address] WBC (Bld) [#/Vol] 10.9 10*3/uL Normal 4.4-11.0 [facility] Comment on above: Performed By: #### L 100.0100 #### [facility] [address] [place], [address] Absolute Lymph 1.73 X10 3/uL Normal 0.83-4.51 [facility] Comment on above: Performed By: #### B MALIK, L100.0100 #### [facility] [address] [place], [address] Absolute Neut 5.6 X10 3/uL Normal 2.0-7.7 [facility] Comment on above: Performed By: #### B MALIK, L100.0100 #### [facility] [address] [place], [address] Basophils/100 WBC (Bld) 0.2 % Normal 0-1 [facility] Comment on above: Performed By: #### Farideh GAN, L100.0100 #### [facility] [address] [place], [address] Eosinophils/100 WBC (Bld) 1.1 % Normal 0-5 [facility] Comment on above: Performed By: #### Farideh GAN, L100.0100 #### [facility] [address] [place], [address] Erythrocyte distribution width (RBC) [Ratio] 12.9 % Normal 11.6-14.6 [facility] Comment on above: Performed By: #### Farideh GAN, L100.0100 #### [facility] [address] [place], [address] Hematocrit (Bld) [Volume fraction] 32.9 % Low 37-47 [facility] Comment on above: Performed By: #### Farideh GAN, L100.0100 #### [facility] [address] [place], [address] Hemoglobin (Bld) [Mass/Vol] 11.0 g/dL Low 12.0-15.0 [facility] Comment on above: Performed By: #### Farideh GAN, L100.0100 #### [facility] [address] [place], [address] IG% 0.200 Normal 0.0-0.9 [facility] Comment on above: Result Comment: IG% - Immature Granulocytes (promyelocytes, myelocytes and metamyelocytes) > 1% indicates that a LEFT SHIFT is Present. Performed By: #### Farideh GAN, L100.0100 #### [facility] [address] [place], [address] Lymphocytes/100 WBC (Bld) 21.2 % Normal 19-41 [facility] Comment on above: Performed By: #### Farideh GAN, L100.0100 #### [facility] [address] [place], [address] MCH (RBC) [Entitic mass] 28.7 pg Normal 27.0-32.0 [facility] Comment on above: Performed By: #### Farideh GAN, L100.0100 #### [facility] [address] [place], [address] MCHC (RBC) [Mass/Vol] 33.4 g/dL Normal 32-36 [facility] Comment on above: Performed By: #### Farideh GAN, L100.0100 #### [facility] [address] [place], [address] MCV (RBC) [Entitic vol] 85.9 fL Normal 81-99 [facility] Comment on above: Performed By: #### Farideh GAN, L100.0100 #### [facility] [address] [place], [address] Monocytes/100 WBC (Bld) 8.7 % Normal 0-10 [facility] Comment on above: Performed By: #### Farideh GAN, L100.0100 #### [facility] [address] [place], [address] Neutrophils/100 WBC (Bld) 68.6 % Normal 47-70 [facility] Comment on above: Performed By: #### Farideh GAN, L100.0100 #### [facility] [address] [place], [address] Nucleated RBC (Bld) [#/Vol] 0 10*3/uL Normal 0-5 [facility] Comment on above: Performed By: #### Farideh GAN, L100.0100 #### [facility] [address] [place], [address] Platelet mean volume (Bld) [Entitic vol] 10.1 fL Normal 6.2-12.0 [facility] Comment on above: Performed By: #### Farideh GAN, L100.0100 #### [facility] [address] [place], [address] Platelets (Bld) [#/Vol] 331 10*3/uL Normal 150-450 [facility] Comment on above: Performed By: #### Farideh GAN, L100.0100 #### [facility] [address] [place], [address] RBC (Bld) [#/Vol] 3.83 10*6/uL Low 4.2-5.4 [facility] Comment on above: Performed By: #### Farideh GAN, L100.0100 #### [facility] [address] [place], [address] RDW SD 40.0 fl Normal 35.1-43.9 [facility] Comment on above: Performed By: #### Farideh GAN, L100.0100 #### [facility] [address] [place], [address] WBC (Bld) [#/Vol] 8.2 10*3/uL Normal 4.4-11.0 [facility] Comment on above: Performed By: #### Farideh GAN, L100.0100 #### [facility] [address] [place], [address] Determination of erythrocyte mean corpuscular volume (MCV)Ordered By: Brandi Ponce on 08-04-2023 MCV (RBC) [Entitic vol] 87.6 fL 81-99 [facility] Erythrocyte distribution wid th ratioOrdered By: Brandi Ponce on 08-04-2023 Erythrocyte distribution width (RBC) [Ratio] 13.0 % 11.6-14.6 [facility] Erythrocyte distribution wid th standard deviationOrdered By: Brandi Ponce on 08-04-2023 Erythrocyte distribution width (RBC) [Entitic vol] 41.0 fL 35.1-43.9 [facility] Fibrinogenon 08-04-2023 FIBRINOGEN 552 mg/dl High [facility] Comment on above: Performed By: #### B TS, L100.0100 #### [facility] [address] [place], [address] FIBRINOGEN 530 mg/dl High [facility] Comment on above: Performed By: #### L 300.4310, L300.4700, L300.3900 #### [facility] [address] [place], [address] Hematocrit Auto (Bld) [Volum e fraction]Ordered By: Brandi Ponce on 08-04-2023 Hematocrit (Bld) [Volume fraction] 36.1 % 37-47 [facility] Immature granulocytes/100 WB C Auto (Bld)Ordered By: Brandi Ponce on 08-04-2023 Immature granulocytes/100 WBC (Bld) 0.500 % 0.0-0.9 [facility] Comment on above: IG% - Immature Granu locytes (promyelocytes, myelocytes and metamyelocytes) > 1% indicates that a LEFT SHIFT is Present. L509.8000on 08-04-2023 Syphilis Abs Non-Reactive Normal [facility] Comment on above: Performed By: #### B TS, L100.0100 #### [facility] [address] [place], [address] Laboratory - CoagulationOrde red By: Brandi Ponce on 08-04-2023 INR Coag (Bld) [Relative time] 1.0 {INR} [facility] PT Coag (PPP) [Time] 13.3 s 11.7-14.9 [facility] Laboratory - Hematology and Cell countsOrdered By: Brandi Ponce on 08-04-2023 MCH (RBC) [Entitic mass] 28.6 pg 27.0-32.0 [facility] MCHC (RBC) [Mass/Vol] 32.7 g/dL 32-36 [facility] Nucleated RBC/100 WBC (Bld) [Ratio] 0 % 0-5 [facility] Platelet mean volume (Bld) [Entitic vol] 9.9 fL 6.2-12.0 [facility] Platelets (Bld) [#/Vol] 349 10*3/uL 150-450 [facility] No Panel InformationOrdered By: Brandi Ponce on 08-04-2023 Fibrinogen 552 mg/dl 203-444 [facility] Partial Thromboplast Timeon 08-04-2023 aPTT Coag (Bld) [Time] 25.3 s Normal 24.1-36.2 [facility] Comment on above: Performed By: #### B TS, L100.0100 #### [facility] [address] [place], [address] aPTT Coag (Bld) [Time] 25.5 s Normal 24.1-36.2 [facility] Comment on above: Performed By: #### L 300.4310, L300.4700, L300.3900 #### [facility] [address] [place], [address] Prothrombin Time w/INRon INR Coag (PPP) [Relative time] 1.0 {INR} Normal [facility] Comment on above: Performed By: #### B TS, L100.0100 #### [facility] [address] [place], [address] PT Coag (PPP) [Time] 13.3 s Normal 11.7-14.9 [facility] Comment on above: Performed By: #### B TS, L100.0100 #### [facility] [address] [place], [address] INR Coag (PPP) [Relative time] 1.0 {INR} Normal [facility] Comment on above: Performed By: #### L 300.4310, L300.4700, L300.3900 #### [facility] [address] [place], [place], [address] PT Coag (PPP) [Time] 13.3 s Normal 11.7-14.9 [facility] Comment on above: Performed By: #### L 300.4310, L300.4700, L300.3900 #### [facility] [address] [place], [address] RBC Auto (Bld) [#/Vol]Ordere d By: Branid Ponce on 08-04-2023 RBC (Bld) [#/Vol] 4.12 10*6/uL 4.2-5.4 [facility] Serum Treponema species anti body detectionOrdered By: Brandi Ponce on 08-04-2023 Treponema sp Ab Ql (S) Non-Reactive [facility] Type AND Screenon 08-04-2023 ABO and Rh group Nom (Bld) Blood group A Rh(D) positive Normal [facility] Comment on above: Order Comment: Has p t arrived? YSC-SECTION Performed By: #### B TS, L100.0100 #### [facility] [address] [facility] [place], [address] URINE OB DIP B/Oon 4 Glucose Ql (U) Negative Neg mg/dL [facility] Protein.monoclonal (U) [Mass/Vol] Negative Neg mg/dL [facility] URINE OB DIP B/Oon 3 Glucose Ql (U) Negative Neg mg/dL [facility] Protein.monoclonal (U) [Mass/Vol] Negative Neg mg/dL [facility] C. trachomatis+N. gonorrhoea e DNA ROSA+probe Ql (Unsp spec)on 02-18-2023 C. trachomatis rRNA ROSA+probe Ql (Unsp spec) Negative Negative for Chlamydia trachomatis by amplificaton [facility] N. gonorrhoeae rRNA ROSA+probe Ql (Unsp spec) Negative Negative for Neisseria gonorrhoeae by amplification [facility] CBC panel Auto (Bld)on 02-18 Erythrocyte distribution width (RBC) [Ratio] 12.4 % 11.5 - 15.0 % [facility] Hematocrit (Bld) [Volume fraction] 37.6 % 36.0 - 46.0 % [facility] Hemoglobin (Bld) [Mass/Vol] 13.0 g/dL 11.5 - 15.5 g/dL [facility] MCH (RBC) [Entitic mass] 30.2 pg 26.0 - 34.0 pg [facility] MCHC (RBC) [Mass/Vol] 34.6 g/dL 30.5 - 36.0 g/dL [facility] MCV (RBC) [Entitic vol] 87.4 fL 80.0 - 100.0 fL [facility] Nucleated RBC (Bld) [#/Vol] <0.01 k/uL [facility] Platelet mean volume (Bld) [Entitic vol] 9.8 fL 9.0 - 12.7 fL [facility] Platelets (Bld) [#/Vol] 317 10*3/uL 150 - 400 k/uL [facility] RBC (Bld) [#/Vol] 4.30 10*6/uL 3.90 - 5.2 0 m/uL [facility] WBC (Bld) [#/Vol] 6.29 10*3/uL 3.70 - 11. 00 k/uL [facility] HEP B SURF AG SCRNon 023 HBV surface Ag Ql (S) Negative Negative [facility] HEPATITIS C ANTIBODY IA WITH CONFIRMATIONon 02-18-2023 HCV Ab Ql (S) Negative Negative [facility] HIV 1+2 Ab IA Qlon 3 HIV 1 and 2 Ab IA.rapid Nom [facility] HIV 1+2 Ab+HIV1 p24 Ag IA Ql Non-Reactive Nonreactive [facility] HIV immunoassay testing algorithm interpretation (S/P/Bld) [Interp] [facility] No Panel Informationon 02-18 [facility] RUBELLA IGG ABon 02-18-2023 Rubella IgG, Qual Positive Positive [facility] Reagin and Treponema pallidu m IgG and IgM [Interp]on 02-18-2023 T. pallidum IgG+IgM IA Ql (S) Non-Reactive Nonreactive [facility] SYPHILIS TOTAL W/REFLEXon Reagin and Treponema pallidum IgG and IgM [Interp] Cannot exclude recent Treponemal infection if specimen collected within 7-10 days after appearance of suspect lesions or 2-3 weeks after an exposure. Clinical correlation is required. [facility] TYPE + SCREEN PRENATALon ABO group Nom (Bld) A [facility] Blood group antibody screen Ql Negative [facility] HIstorical Ab Scr Status Negative [facility] Rh Nom (Bld) Positive [facility] Type and Screen Expiration 02/21/2023 23:59 [facility] Serum or plasma choriogonado tropin detectionOrdered By: Mac Quinonez on 12-28-2022 HCG ( test) Ql 1305 mIU/mL <4 [facility] Comment on above: hCG levels with Gest ational AgeGestational Age hCG mIU/mL (IU/L)0.2 - 1 week 5 - 501-2 weeks 50 - 5002-3 weeks 100 - 60193-5 weeks 500 - 161532-8 weeks 1000 - 478528-6 weeks 62455 - 100,0006-8 weeks 10029 - 200,0002-3 months 65334 - 100,000 hCG Titer Quant., Serumon HCG QUANT. 1305 mIU/mL High 1-3 [facility] Comment on above: Order Comment: PER J EN-ORDER THIS QUANT INSTEAD OF SUBUNIT Result Comment: hCG levels with Gestational Age Gestational Age hCG mIU/mL (IU/L) 0.2 - 1 week 5 - 50 1-2 weeks 50 - 500 2-3 weeks 100 - 5000 3-4 weeks 500 - 96147 4-5 weeks 1000 - 17746 5-6 weeks 55022 - 100,000 6-8 weeks 44170 - 200,000 2-3 months 60737 - 100,000 Performed By: #### L 700.8000 #### [facility] [place], [address] Serum or plasma choriogonado tropin detectionOrdered By: Mac Quinonez on 12-24-2022 HCG ( test) Ql 254 mIU/mL <4 [facility] Comment on above: hCG levels with Gest ational AgeGestational Age hCG mIU/mL (IU/L)0.2 - 1 week 5 - 501-2 weeks 50 - 5002-3 weeks 100 - 27150-3 weeks 500 - 201499-8 weeks 1000 - 899091-4 weeks 14365 - 100,0006-8 weeks 94599 - 200,0002-3 months 49979 - 100,000 hCG Titer Quant., Serumon HCG QUANT. 254 mIU/mL High 1-3 [facility] Comment on above: Result Comment: hCG levels with Gestational Age Gestational Age hCG mIU/mL (IU/L) 0.2 - 1 week 5 - 50 1-2 weeks 50 - 500 2-3 weeks 100 - 5000 3-4 weeks 500 - 14506 4-5 weeks 1000 - 57423 5-6 weeks 11977 - 100,000 6-8 weeks 21646 - 200,000 2-3 months 82564 - 100,000 Performed By: #### B TS, L100.0100 #### [facility] [address] [place], [address] Basophil percentageon 2021 WBC (Bld) [#/Vol] 10.1 10*3/uL 4.4-11.0 [facility] Work Phone: Blood erythrocytes count (nu mber/volume)on 09-03-2021 RBC (Bld) [#/Vol] 3.03 10*6/uL 4.2-5.4 [facility] Work Phone: Blood hemoglobin measurement (mass/volume)on 09-03-2021 Hemoglobin (Bld) [Mass/Vol] 8.1 g/dL 12.0-15.0 [facility] Work Phone: Blood platelet mean volumeon 09-03-2021 Platelet mean volume (Bld) [Entitic vol] 9.7 fL 6.2-12.0 [facility] Work Phone: Determination of erythrocyte mean corpuscular volume (MCV)on 09-03-2021 MCV (RBC) [Entitic vol] 85.5 fL 81-99 [facility] Work Phone: Hematocrit Auto (Bld) [Volum e fraction]on 09-03-2021 Hematocrit (Bld) [Volume fraction] 25.9 % 37-47 [facility] Work Phone: Laboratory - Hematology and Cell countson 09-03-2021 Erythrocyte distribution width (RBC) [Entitic vol] 43.2 fL 35.1-43.9 [facility] Work Phone: Erythrocyte distribution width (RBC) [Ratio] 14.2 % 11.6-14.6 [facility] Work Phone: MCH (RBC) [Entitic mass] 26.7 pg 27.0-32.0 [facility] Work Phone: MCHC Auto (RBC) [Mass/Vol]on 09-03-2021 MCHC (RBC) [Mass/Vol] 31.3 g/dL 32-36 [facility] Work Phone: Platelets bldon 09-03-2021 Platelets (Bld) [#/Vol] 282 10*3/uL 150-450 [facility] Work Phone: Absolute lymphocyte counton 09-02-2021 Lymphocytes Auto (Unsp spec) [#/Vol] 1.98 10*3/uL 0.83-4.51 [facility] Work Phone: Basophil percentageon 2021 Basophils/100 WBC (Bld) 0.5 % 0-1 [facility] Work Phone: Eosinophils/100 WBC (Bld) 1.2 % 0-5 [facility] Work Phone: Neutrophils (Bld) [#/Vol] 6.7 10*3/uL 2.0-7.7 [facility] Work Phone: Neutrophils/100 WBC (Bld) 69.7 % 47-70 [facility] Work Phone: Blood lymphocytes/100 leukoc yteson 09-02-2021 Lymphocytes/100 WBC (Bld) 20.4 % 19-41 [facility] Work Phone: Blood monocytes/100 leukocyt eson 09-02-2021 Monocytes/100 WBC (Bld) 7.9 % 0-10 [facility] Work Phone: Laboratory - Hematology and Cell countson 09-02-2021 Immature granulocytes/100 WBC (Bld) 0.300 % 0.0-0.9 [facility] Work Phone: Comment on above: IG% - Immature Granu locytes (promyelocytes, myelocytes and metamyelocytes) > 1% indicates that a LEFT SHIFT is Present. Nucleated RBC/100 WBC (Bld) [Ratio] 0 % 0-5 [facility] Work Phone: No Panel Informationon 09-02 Rubella IgG Antibody Reactive Nonreactive [facility] Work Phone: Comment on above: Antibody Results Int erpretation of Immune Status Non Reactive Presumed Non-Immune Equivocal Equivocal Reactive Presumed Immune URINE OB DIP B/Oon 2 Glucose Ql (U) Negative Neg mg/dL [facility] Protein.monoclonal (U) [Mass/Vol] Negative Neg mg/dL [facility] URINE OB DIP B/Oon 2 Glucose Ql (U) Negative Neg mg/dL [facility] Protein.monoclonal (U) [Mass/Vol] Negative Neg mg/dL [facility] URINE OB DIP B/Oon 2 Glucose Ql (U) Negative Neg mg/dL [facility] Protein.monoclonal (U) [Mass/Vol] Negative Neg mg/dL [facility] URINE OB DIP B/Oon 2 Glucose Ql (U) Negative Neg mg/dL [facility] Protein.monoclonal (U) [Mass/Vol] Negative Neg mg/dL [facility] URINE OB DIP B/Oon 2 Glucose Ql (U) Negative Neg mg/dL [facility] Protein.monoclonal (U) [Mass/Vol] Negative Neg mg/dL [facility] Absolute lymphocyte counton 07-25-2021 Lymphocytes Auto (Unsp spec) [#/Vol] 1.15 10*3/uL 0.83-4.51 [facility] Work Phone: Basophil percentageon 2021 Basophil percentage 0 SEEN /hpf [facility] Work Phone: Basophils/100 WBC (Bld) 0.5 % 0-1 [facility] Work Phone: Bilirubin [Mass/Vol] 0.20 mg/dL 0.20-1.00 [facility] Work Phone: [phone] Comment on above: For patients on eltr ombopag therapy, use of Dimension [place] TBIL is not recommended. Chloride [Moles/Vol] 108 mmol/L 98-107 [facility] Work Phone: Eosinophils/100 WBC (Bld) 2.1 % 0-5 [facility] Work Phone: Glucose [Mass/Vol] 152 mg/dL 74-106 [facility] Work Phone: [phone] Comment on above: Fasting Glucose resu lt greater than or equal to 126 mg/dL suggests DIABETES MELLITUS per A.D.A. criteria. Neutrophils (Bld) [#/Vol] 7.7 10*3/uL 2.0-7.7 [facility] Work Phone: Neutrophils/100 WBC (Bld) 79.8 % 47-70 [facility] Work Phone: Potassium [Moles/Vol] 3.5 mmol/L 3.5-5.1 [facility] Work Phone: Protein [Mass/Vol] 6.4 g/dL 6.4-8.2 [facility] Work Phone: Sodium [Moles/Vol] 137 mmol/L 136-145 [facility] Work Phone: WBC (Bld) [#/Vol] 9.6 10*3/uL 4.4-11.0 [facility] Work Phone: Bilirubin Test strip Ql (U)o n 07-25-2021 Bilirubin Ql (U) Negative Negative [facility] Work Phone: Blood erythrocytes count (nu mber/volume)on 07-25-2021 RBC (Bld) [#/Vol] 3.69 10*6/uL 4.2-5.4 [facility] Work Phone: Blood hemoglobin measurement (mass/volume)on 07-25-2021 Hemoglobin (Bld) [Mass/Vol] 10.6 g/dL 12.0-15.0 [facility] Work Phone: Blood lymphocytes/100 leukoc yteson 07-25-2021 Lymphocytes/100 WBC (Bld) 12.0 % 19-41 [facility] Work Phone: Blood monocytes/100 leukocyt eson 07-25-2021 Monocytes/100 WBC (Bld) 5.3 % 0-10 [facility] Work Phone: Blood platelet mean volumeon 07-25-2021 Platelet mean volume (Bld) [Entitic vol] 9.4 fL 6.2-12.0 [facility] Work Phone: Determination of erythrocyte mean corpuscular volume (MCV)on 07-25-2021 MCV (RBC) [Entitic vol] 85.4 fL 81-99 [facility] Work Phone: Hematocrit Auto (Bld) [Volum e fraction]on 07-25-2021 Hematocrit (Bld) [Volume fraction] 31.5 % 37-47 [facility] Work Phone: INR in Blood by Coagulation assayon 07-25-2021 INR Coag (Bld) [Relative time] 1.0 {INR} [facility] Work Phone: Ketones Test strip Ql (U)on 07-25-2021 Ketones Ql (U) Negative Negative [facility] Work Phone: [phone] Laboratory - Chemistry and C hemistry - challengeon 07-25-2021 ALP [Catalytic activity/Vol] 129 U/L 45-117 [facility] Work Phone: ALT [Catalytic activity/Vol] 14 U/L 13-56 [facility] Work Phone: CO2 [Moles/Vol] 20.0 mmol/L 21.0-32.0 [facility] Work Phone: Globulin (S) [Mass/Vol] 4.4 g/dL 2.2-4.2 [facility] Work Phone: Lipase [Catalytic activity/Vol] 92 U/L 73-393 [facility] Work Phone: Urea nitrogen/Creatinine [Mass ratio] 5.6 mg/mg 10-20 [facility] Work Phone: Laboratory - Coagulationon 0 07-25-2021 aPTT Coag (Bld) [Time] 26.3 s 24.1-36.2 [facility] Work Phone: PT Coag (PPP) [Time] 13.0 s 11.7-14.9 [facility] Work Phone: Laboratory - Hematology and Cell countson 07-25-2021 Erythrocyte distribution width (RBC) [Entitic vol] 40.0 fL 35.1-43.9 [facility] Work Phone: Erythrocyte distribution width (RBC) [Ratio] 13.1 % 11.6-14.6 [facility] Work Phone: Immature granulocytes/100 WBC (Bld) 0.300 % 0.0-0.9 [facility] Work Phone: Comment on above: IG% - Immature Granu locytes (promyelocytes, myelocytes and metamyelocytes) > 1% indicates that a LEFT SHIFT is Present. MCH (RBC) [Entitic mass] 28.7 pg 27.0-32.0 [facility] Work Phone: Nucleated RBC/100 WBC (Bld) [Ratio] 0 % 0-5 [facility] Work Phone: MCHC Auto (RBC) [Mass/Vol]on 07-25-2021 MCHC (RBC) [Mass/Vol] 33.7 g/dL 32-36 [facility] Work Phone: Mucus LM Ql (Urine sed)on Mucus Ql (Urine sed) 0 SEEN /hpf [facility] Work Phone: Nitrite Test strip Ql (U)on 07-25-2021 Nitrite Ql (U) Negative Negative [facility] Work Phone: No Panel Informationon 07-25 Estimated Creatinine Clearance Calc 74.90 ml/min [facility] Work Phone: Estimated GFR (MDRD) Amer 117 mL/min >60 [facility] Work Phone: Comment on above: GFR Calc Estimated GFR (MDRD) Non-Af Amer 96 mL/min >60 [facility] Work Phone: Comment on above: Non- GFR Calc Troponin I High Sensitivity < 3 pg/mL 3.0-54.0 [facility] Work Phone: Comment on above: Please Note: New [place] t Units and Gender Specific Reference Ranges. For more information see Policy Stat Procedure [place] High Sensitivity Troponin (TNIH) and attachments. Platelets bldon 07-25-2021 Platelets (Bld) [#/Vol] 365 10*3/uL 150-450 [facility] Work Phone: Protein Test strip Ql (U)on 07-25-2021 Protein Ql (U) Negative Negative [facility] Work Phone: Serum or plasma albumin frederic urement (mass/volume)on 07-25-2021 Albumin [Mass/Vol] 2.0 g/dL 3.2-5.0 [facility] Work Phone: Serum or plasma albumin/glob ulin mass ratioon 07-25-2021 Albumin/Globulin [Mass ratio] 0.5 {ratio} 0.9-2.4 [facility] Work Phone: Serum or plasma calcium frederic urement (mass/volume)on 07-25-2021 Calcium [Mass/Vol] 7.8 mg/dL 8.5-10.1 [facility] Work Phone: Serum or plasma creatinine m easurement (mass/volume)on 07-25-2021 Creatinine [Mass/Vol] 0.71 mg/dL 0.55-1.02 [facility] Work Phone: Comment on above: The validity of the calculated GFR & GFRAA in patients over 70 years has not been determined. Clinical correlation is essential. Serum or plasma urea nitroge n measurement (mass/volume)on 07-25-2021 Urea nitrogen [Mass/Vol] 4 mg/dL 7-18 [facility] Work Phone: Squamous epithelial cells de tection in urine sediment by light microscopyon 07-25-2021 Epithelial cells.squamous LM Ql (Urine sed) 0 SEEN /hpf [facility] Work Phone: [phone] Thin prep Papanicolaou smear with manual screeningon 07-25-2021 Thin prep Papanicolaou smear with manual screening 15 U/L 15-37 [facility] Work Phone: Thin prep Papanicolaou smear with manual screening 9 5-15 [facility] Work Phone: [phone] Urine blood detectionon 07-11 RBC Ql (U) Negative Negative [facility] Work Phone: [phone] RBC Ql (U) 0 SEEN /hpf [facility] Work Phone: [phone] Urine clarityon 07-25-2021 Clarity (U) Clear Clear [facility] Work Phone: [phone] Urine color determinationon 07-25-2021 Color (U) Yellow Yellow [facility] Work Phone: [phone] Urine glucose detectionon Glucose Ql (U) Normal mg/dl Normal [facility] Work Phone: [phone] Urine leukocyte esterase det ection by dipstickon 07-25-2021 Leukocyte esterase Test strip Ql (U) Negative Negative [facility] Work Phone: [phone] Urine pHon 07-25-2021 pH (U) 6.5 [pH] [facility] Work Phone: [phone] Urine sediment bacteria coun t by microscopy (number/high power field)on 07-25-2021 Bacteria LM.HPF (Urine sed) [#/Area] 0 /[HPF] None Seen [facility] Work Phone: [phone] Urine specific gravity measu rementon 07-25-2021 Specific gravity (U) [Rel density] 1.010 [facility] Work Phone: Urobilinogen Auto test strip Ql (U)on 07-25-2021 Urobilinogen Ql (U) Normal mg/dl Normal [facility] Work Phone: URINE OB DIP B/Oon 2 Glucose Ql (U) Negative Neg mg/dL [facility] Protein.monoclonal (U) [Mass/Vol] Negative Neg mg/dL [facility] Operative Reporton 1 Operative Report [facility] [address] [place], [place] [address] RECORD OF PROCEDURE PATIENT NAME: ARIAN TOLEDO DATE OF : 1980 MED REC #: [id number] PT LOCATION: OR PACU PT TYPE: OPS AGE: 40 SEX: F ADMISSION DATE: 06/28/2020 DATE OF SERVICE: 06/28/2020 SURGEON: Mac Quinonez MD ANESTHESIA: General. ESTIMATED BLOOD LOSS: Minimal. PACKS/DRAINS: None. Pruitt to straight drain. SPECIAL MEDICINES: None. INDICATIONS FOR PROCEDURE: The patient is a 40-year-old white female who presented for surgical therapy with known abnormal uterine bleeding and intrauterine polyps. I performed a hysteroscopy which revealed multiple small polyps. Informed consent was obtained. The above procedures were performed. PREPROCEDURE DIAGNOSIS: Intrauterine polyps. POSTPROCEDURE DIAGNOSIS: Intrauterine polyps and Asherman syndrome. NAME OF PROCEDURE: Hysteroscopic lysis of uterine adhesions, hysteroscopic polypectomies. FINDINGS: At the time of hysteroscopy, the patient actually had adhesions and scar tissue formation along the right lateral aspect of her uterine cavity. These adhesions were removed with MyoSure LITE device. The polyps were also removed. I will place the patient postoperatively on estrogen to promote healing. I will repeat her ultrasound in 3 weeks postoperatively. I will discuss my findings postoperatively with the patient. DESCRIPTION OF PROCEDURE: The patient was taken to the operating room and placed in the supine position where general anesthesia was delivered. Prepped and draped in the usual sterile fashion. Pruitt was placed in her bladder. Weighted specimen was placed in her vagina. Cervix was visualized, clamped and dilated sufficiently to accommodate a 5-mm hysteroscope. Using MyoSure LITE, the adhesions along the right lateral aspect of her uterus were removed. The polyps were also removed. Await pathology. At this point, her uterine cavity appeared normal. We will promote healing with postoperative estrogen. All instruments removed from the patient. She was awakened and taken to the recovery room in stable condition. Mac Quinonez MD [facility]/[id number] SSI File#: [id number] CC: Mac Quinonez MD [facility] Surgical Pathology Depar tmenton 06-28-2020 [facility] Surgical Pathology Department Name ARIAN TOLEDO Pathologist: ISHA CUI MD, PhD Date of Procedure: 06/28/2020 Date Received: 06/28/2020 Date Reported 07/03/2020 Submitting Physician: MAC QUINONEZ MD Location: [facility] Other External # [id number] FINAL DIAGNOSIS A. ENDOMETRIUM, BIOPSY: -- WEAKLY PROLIFERATIVE ENDOMETRIUM WITH FOCAL STROMAL BREAKDOWN -- FRAGMENTS OF SMOOTH MUSCLE WITH NO SIGNIFICANT PATHOLOGICAL FINDINGS Electronically Signed Out By ISHA CUI MD, PhD/YX By the signature on this report, the individual or group listed as making the Final Interpretation/Diagnosis certifies that they have reviewed this case. Clinical History: Endometrial polyps Specimens Submitted As: A: ENDOMETRIAL POLYPS Other Case Numbers [id number] Gross Description: Received in formalin, labeled with the patient's name and hospital number and endometrial polyps, are multiple fragments of weems, soft tissue aggregating to 2.3 x 1.5 x 0.3 cm. The specimen is submitted in toto in one cassette. JLM jlm/06/29/2020 [facility] Department of Pathology [id number] [place] [address] Comment on above: Performed By: #### U [facility] #### [facility] Surgical Pathology Department [id number] [place] [address] Respiratory Panel 2.1 by PCR w/ Covid (Bon 06-27-2020 Adenovirus Not Detected Normal NOT DETECTED [facility] Comment on above: Performed By: #### B IORP21 #### [facility] [address] [place] [address] Bacteria LM.HPF (Urine sed) [#/Area] < BACTERIA > Normal [facility] Comment on above: Performed By: #### B IORP21 #### [facility] [address] [place] [address] Bord. parapertussis Not Detected Normal NOT DETECTED [facility] Comment on above: Performed By: #### B IORP21 #### [facility] [address] [place], [place] [phone] Bordetella pertussis Not Detected Normal NOT DETECTED [facility] Comment on above: Performed By: #### B IORP21 #### [facility] [address] [place], [place] [phone] C. pneumoniae Not Detected Normal NOT DETECTED [facility] Comment on above: Performed By: #### B IORP21 #### [facility] [address] [place], [place] [phone] Coronavirus 229E Not Detected Normal NOT DETECTED [facility] Comment on above: Performed By: #### B IORP21 #### [facility] [address] [place], [place] [phone] Coronavirus HKU1 Not Detected Normal NOT DETECTED [facility] Comment on above: Performed By: #### B IORP21 #### [facility] [address] [place], [place] [phone] Coronavirus NL63 Not Detected Normal NOT DETECTED [facility] Comment on above: Performed By: #### B IORP21 #### [facility] [address] [place], [place] [phone] Coronavirus OC43 Not Detected Normal NOT DETECTED [facility] Comment on above: Performed By: #### B IORP21 #### [facility] [address] [place], [place] [phone] Indiv PCR Results ----- INDIVIDUAL PCR RESULTS ----- Normal [facility] Comment on above: Performed By: #### B IORP21 #### [facility] [address] [place], [place] [phone] Influenza A Not Detected Normal NOT DETECTED [facility] Comment on above: Performed By: #### B IORP21 #### [facility] [address], [place] [address] Influenza A/H1 Not Detected Normal NOT DETECTED [facility] Comment on above: Performed By: #### B IORP21 #### [facility] [address], [place] [address] Influenza A/H1-2009 Not Detected Normal NOT DETECTED [facility] Comment on above: Performed By: #### B IORP21 #### [facility] [address], [place] [address] Influenza A/H3 Not Detected Normal NOT DETECTED [facility] Comment on above: Performed By: #### B IORP21 #### [facility] [address] [place] [address] Influenza B Not Detected Normal NOT DETECTED [facility] Comment on above: Performed By: #### B IORP21 #### [facility] [address], [place] [address] M. pneumoniae Not Detected Normal NOT DETECTED [facility] Comment on above: Performed By: #### B IORP21 #### [facility] [address] [place] [address] Metapneumovirus Not Detected Normal NOT DETECTED [facility] Comment on above: Performed By: #### B IORP21 #### [facility] [address], [place] [address] Parainfluenza 1 Not Detected Normal NOT DETECTED [facility] Comment on above: Performed By: #### B IORP21 #### [facility] [address], [place] [address] Parainfluenza 2 Not Detected Normal NOT DETECTED [facility] Comment on above: Performed By: #### B IORP21 #### [facility] [address], [place] [address] Parainfluenza 3 Not Detected Normal NOT DETECTED [facility] Comment on above: Performed By: #### B IORP21 #### [facility] [address] [place] [address] Parainfluenza 4 Not Detected Normal NOT DETECTED [facility] Comment on above: Performed By: #### B IORP21 #### [facility] [address] [place] [address] Pathogens Detected No Pathogens Detected Normal NOT DE TECTED [facility] Comment on above: Performed By: #### B IORP21 #### [facility] [address] [place] [address] Pathogens Detected Normal NOT DETECTED [facility] Comment on above: Performed By: #### B IORP21 #### [facility] [address] [place] [address] Resp Pathogens Sum RESPIRATORY PANEL 2 PATHOGENS SUMMARY [facility] Comment on above: Performed By: #### B IORP21 #### [facility] [address] [place] [address] Resp Syncytial Virus Not Detected Normal NOT DETECTED [facility] Comment on above: Performed By: #### B IORP21 #### [facility] [address] [place] [address] Rhinovirus/Enterovi r Not Detected Normal NOT DETECTED [facility] Comment on above: Performed By: #### B IORP21 #### [facility] [address] [place] [address] [id number] Sars-Cov 2 test has received FDA Emergency Use Authorization (EUA) and has been verified by [facility]. Fact sheets provided by [employer] and required by the FDA can be located at: tps://[email or web address] [email or web address]- fact-sheet.pdf [facility] Comment on above: Performed By: #### B IORP21 #### [facility] [address] [place] [address] SARS-COV-2 Not Detected Normal Not Detected [facility] Comment on above: Performed By: #### B IORP21 #### [facility] [address] [place] [address] Viruses - < VIRUSES- > Normal [facility] Comment on above: Performed By: #### B IORP21 #### [facility] [address] [place], [place] [address] HCG,Urine Qualon 07-05-2018 HCG.beta subunit ( test) Ql (U) Negative Normal Negative [facility] [employer] [facility] Comment on above: Result Comment: Preg beth is the most common reason for HCG in urine, although choriocarcinoma, hydatidiform mole, and certain nontropho- blastic malignancies also result in detectable urinary HCG levels. Sensitivity = 20mIU/mL. Performed By: #### H CGUR #### [facility] [address] [place] [address] Op Noteon 07-05-2018 Op Note PATIENT: FLORENTINO TOLEDO ADMISSION DATE: 07/05/2018 SURGERY DATE: 07/05/2018 DATE OF : 1980 AGE: 38 ADMITTING PHYSICIAN: Mac Quinonez MD ATTENDING PHYSICIAN: Mac Quinonez MD DICTATING PHYSICIAN: Mac Quinonez MD OPERATIVE RECORD Procedure: HYSTEROSCOPIC TREATMENT OF INTRAUTERINE SYNECHIAE. Preoperative Diagnosis: Intrauterine filling defect. Postoperative Diagnoses: 1. Intrauterine filling defect. 2. Asherman syndrome. Anesthesia: General. Estimated Blood Loss: Minimal. BLOOD: None. FLUIDS: None. Packs and Drains: None. Pruitt: To straight drain. Special Medications: None. Brief History and Indications: The patient is a 38-year-old white female presented for surgical therapy with a known intrauterine filling defect. I performed a hysteroscopy in the office which revealed what appeared to be abnormal endometrium and intrauterine scar tissue. Informed consent was obtained and the above procedure was performed. Findings: At the time of hysteroscopy, the patient had thin filmy adhesions in her uterine cavity. They were removed with scissors. Her uterine cavity now appears normal. They were so small and filmy, I did not feel she needs postoperative estrogen nor an IUD. Description of Procedure: The patient was taken to the operating room, placed in the supine position where general anesthesia was delivered, prepped and draped in usual sterile fashion. Pruitt was placed in her bladder. Weighted speculum was placed in her vagina. Cervix was visualized, clamp, dilated sufficiently to accommodate a 6-mm hysteroscope. Using scissors, the adhesions were transected. With this done, the procedure was terminated. All instruments were removed from the patient. She was awakened and taken to the recovery room in stable condition. [employer] Job ID: [id number] Mac Quinonez MD DOD:07/05/2018 01:14 P KAUR/christopherk DOT:07/05/2018 01:50 P Job Number: [id number] Document Number: [id number] cc: Mac Quinonez MD [address] [place] [address] Vital Signs Date Time Vital Sign Value Performing Clinician Facility 08-20-2023 07:57-0400 Body temperature 98.3 [degF] [facility] 08-20-2023 07:57-0400 Diastolic blood pressure 58 mm[Hg] [facility] 08-20-2023 07:57-0400 Heart rate 76 /min [facility] 08-20-2023 07:57-0400 Respiratory rate 16 /min [facility] 08-20-2023 07:57-0400 SaO2% (BldA) [Mass fraction] 97 % [facility] 08-20-2023 07:57-0400 Systolic blood pressure 113 mm[Hg] [facility] 08-17-2023 06:45-0400 Inhaled oxygen flow rate 1 L/min [facility] 08-17-2023 01:56-0400 Body height 152.4 cm [facility] 08-17-2023 01:56-0400 Body mass index (BMI) [Ratio] 29 kg/m2 [facility] 08-17-2023 01:56-0400 Body weight 67.6 kg [facility] 08-10-2023 14:44-0400 Body mass index (BMI) [Ratio] 29.1 kg/m2 Susana Cota MD Work Phone: [facility] 08-10-2023 14:44-0400 Body weight 67.59 kg Susana Cota MD Work Phone: [facility] 08-10-2023 14:44-0400 Diastolic blood pressure 67 mm[Hg] Susana Cota MD Work Phone: [facility] 08-10-2023 14:44-0400 Systolic blood pressure 100 mm[Hg] Susana Cota MD Work Phone: [facility] 08-06-2023 15:46-0400 Body mass index (BMI) [Ratio] 29.49 kg/m2 Kristyn Caceres MD Work Phone: [facility] 08-06-2023 15:46-0400 Body weight 68.49 kg Kristyn Caceres MD Work Phone: [facility] 08-06-2023 15:46-0400 Diastolic blood pressure 60 mm[Hg] Kristyn Caceres MD Work Phone: [facility] 08-06-2023 15:46-0400 Systolic blood pressure 96 mm[Hg] Kristyn Caceres MD Work Phone: [facility] 08-04-2023 19:21-0400 Diastolic blood pressure 59 mm[Hg] [facility] 08-04-2023 19:21-0400 Heart rate 77 /min [facility] 08-04-2023 19:21-0400 Systolic blood pressure 109 mm[Hg] [facility] 08-04-2023 19:20-0400 Body temperature 99 [degF] [facility] 08-04-2023 19:20-0400 Respiratory rate 18 /min [facility] 08-04-2023 19:20-0400 SaO2% (BldA) [Mass fraction] 95 % [facility] 08-04-2023 15:14-0400 Body height 152.4 cm [facility] 08-04-2023 15:14-0400 Body mass index (BMI) [Ratio] 29.7 kg/m2 [facility] 08-04-2023 15:14-0400 Body weight 69.1 kg [facility] 07-20-2023 15:040400 Body weight 68.04 kg Silvia Muñoz MD Work Phone: [facility] 07-20-2023 15:04-0400 Diastolic blood pressure 58 mm[Hg] Silvia Muñoz MD Work Phone: [facility] 07-20-2023 15:04-0400 Systolic blood pressure 96 mm[Hg] Silvia Muñoz MD Work Phone: [facility] 06-23-2023 15:20-0400 Body height 152.4 cm Dl Haury EQUIPMENT OPERATOR/LABORER.WATER TREATMENT PLANT OPERATOR Work Phone: [facility] 06-23-2023 15:20-0400 Body weight 68.13 kg Dl Haury EQUIPMENT OPERATOR/LABORER.WATER TREATMENT PLANT OPERATOR Work Phone: [facility] 06-23-2023 15:20-0400 Diastolic blood pressure 60 mm[Hg] Dl Haury EQUIPMENT OPERATOR/LABORER.WATER TREATMENT PLANT OPERATOR Work Phone: [facility] 06-23-2023 15:20-0400 Systolic blood pressure 90 mm[Hg] Dl Haury EQUIPMENT OPERATOR/LABORER.WATER TREATMENT PLANT OPERATOR Work Phone: [facility] 03-19-2023 15:04-0500 Body weight 65.32 kg Silvia Muñoz MD Work Phone: [facility] 03-19-2023 15:04-0500 Diastolic blood pressure 60 mm[Hg] Silvia Muñoz MD Work Phone: [facility] 03-19-2023 15:04-0500 Systolic blood pressure 104 mm[Hg] Silvia Muñoz MD Work Phone: [facility] 02-18-2023 07:51-0500 Body weight 60.78 kg Brianna Encino EQUIPMENT OPERATOR/LABORER.WATER TREATMENT PLANT OPERATOR Work Phone: [facility] 02-18-2023 07:51-0500 Diastolic blood pressure 60 mm[Hg] Brianna Encino EQUIPMENT OPERATOR/LABORER.WATER TREATMENT PLANT OPERATOR Work Phone: [facility] 02-18-2023 07:51-0500 Systolic blood pressure 98 mm[Hg] Brianna Willie EQUIPMENT OPERATOR/LABORER.WATER TREATMENT PLANT OPERATOR Work Phone: [facility] 02-04-2023 13:34-0400 Body weight 61.05 kg Kristyn Caceres MD Work Phone: [facility] 02-04-2023 13:34-0400 Diastolic blood pressure 60 mm[Hg] Kristyn Caceres MD Work Phone: [facility] 02-04-2023 13:34-0400 Systolic blood pressure 92 mm[Hg] Kristyn Caceres MD Work Phone: [facility] 09-17-2021 08:58-0400 Body weight 58.97 kg Silvia Muñoz MD Work Phone: [facility] 09-17-2021 08:58-0400 Diastolic blood pressure 62 mm[Hg] Silvia Muñoz MD Work Phone: [facility] 09-17-2021 08:58-0400 Systolic blood pressure 100 mm[Hg] Silvia Muñoz MD Work Phone: [facility] 09-04-2021 08:00-0400 Body temperature 97.6 [degF] [facility] Work Phone: 09-04-2021 08:00-0400 Diastolic blood pressure 68 mm[Hg] [facility] Work Phone: 09-04-2021 08:00-0400 Heart rate 78 /min [facility] Work Phone: 09-04-2021 08:00-0400 Respiratory rate 18 /min [facility] Work Phone: 09-04-2021 08:00-0400 SaO2% (BldA) [Mass fraction] 97 % [facility] Work Phone: 09-04-2021 08:00-0400 Systolic blood pressure 116 mm[Hg] [facility] Work Phone: 09-02-2021 01:32-0400 Body height 152.4 cm [facility] Work Phone: 05-24-2022 01:32-0400 Body mass index (BMI) [Ratio] 28.7 kg/m2 [facility] Work Phone: 09-02-2021 01:32-0400 Body weight 66.7 kg [facility] Work Phone: 08-29-2021 10:03-0400 Body weight 67.13 kg Silvia Muñoz MD Work Phone: [facility] 08-29-2021 10:03-0400 Diastolic blood pressure 73 mm[Hg] Silvia Muñoz MD Work Phone: [facility] 08-29-2021 10:03-0400 Systolic blood pressure 119 mm[Hg] Silvia Muñoz MD Work Phone: [facility] 08-25-2021 14:49-0400 Body weight 67.59 kg Nayeli Plotts EQUIPMENT OPERATOR/LABORER.CNM Work Phone: [facility] 08-25-2021 14:49-0400 Diastolic blood pressure 60 mm[Hg] Nayeli Plotts EQUIPMENT OPERATOR/LABORER.CNM Work Phone: [facility] 08-25-2021 14:49-0400 Systolic blood pressure 92 mm[Hg] Nayeli Plotts EQUIPMENT OPERATOR/LABORER.CNM Work Phone: [facility] 08-22-2021 15:13-0400 Body weight 67.59 kg Silvia Muñoz MD Work Phone: [facility] 08-22-2021 15:13-0400 Diastolic blood pressure 60 mm[Hg] Silvia Muñoz MD Work Phone: [facility] 08-22-2021 15:13-0400 Systolic blood pressure 102 mm[Hg] Silvia Muñoz MD Work Phone: [facility] 08-14-2021 15:26-0400 Body weight 67.59 kg Silvia Muñoz MD Work Phone: [facility] 08-14-2021 15:26-0400 Diastolic blood pressure 71 mm[Hg] Silvia Muñoz MD Work Phone: [facility] 08-14-2021 15:26-0400 Systolic blood pressure 97 mm[Hg] Silvia Muñoz MD Work Phone: [facility] 08-01-2021 15:51-0400 Body weight 68.13 kg Nayeli Miranda EQUIPMENT OPERATOR/LABORER.CNM Work Phone: [facility] 08-01-2021 15:51-0400 Diastolic blood pressure 62 mm[Hg] Nayeli Miranda EQUIPMENT OPERATOR/LABORER.CNM Work Phone: [facility] 08-01-2021 15:51-0400 Systolic blood pressure 90 mm[Hg] Nayeli Miranda EQUIPMENT OPERATOR/LABORER.CNM Work Phone: [facility] 07-25-2021 16:29-0400 Heart rate 77 /min [facility] Work Phone: 07-25-2021 16:29-0400 Respiratory rate 19 /min [facility] Work Phone: 07-25-2021 16:29-0400 SaO2% (BldA) [Mass fraction] 100 % [facility] Work Phone: 07-25-2021 15:16-0400 Diastolic blood pressure 79 mm[Hg] [facility] Work Phone: 07-25-2021 15:16-0400 Systolic blood pressure 101 mm[Hg] [facility] Work Phone: 07-25-2021 13:01-0400 Body height 152.4 cm [facility] Work Phone: 07-25-2021 13:01-0400 Body mass index (BMI) [Ratio] 28.7 kg/m2 [facility] Work Phone: 07-25-2021 13:01-0400 Body temperature 96.9 [degF] [facility] Work Phone: 07-25-2021 13:010400 Body weight 66.67 kg [facility] Work Phone: 07-25-2021 10:18-0400 Body temperature 97.59 [degF] Shaun Maciel MD Work Phone: [facility] 07-25-2021 10:180400 Body weight 66.68 kg Shaun Maciel MD Work Phone: [facility] 07-25-2021 10:18-0400 Diastolic blood pressure 58 mm[Hg] Shaun Maciel MD Work Phone: [facility] 07-25-2021 10:18-0400 Heart rate 109 /min Shaun Maciel MD Work Phone: [facility] 07-25-2021 10:18-0400 Respiratory rate 22 /min Shaun Maciel MD Work Phone: [facility] 07-25-2021 10:18-0400 SaO2% (BldA) [Mass fraction] 99 % Shaun Maciel MD Work Phone: [facility] 07-25-2021 10:18-0400 Systolic blood pressure 90 mm[Hg] Shaun Maciel MD Work Phone: [facility] 07-15-2021 14:41-0400 Body weight 66.68 kg Silvia Muñoz MD Work Phone: [facility] 07-15-2021 14:41-0400 Diastolic blood pressure 60 mm[Hg] Silvia Muñoz MD Work Phone: [facility] 07-15-2021 14:41-0400 Systolic blood pressure 94 mm[Hg] Silvia Muñoz MD Work Phone: [facility] Encounters Encounter Date Encounter Type Care Provider Facility Start: 08-17-2024 End: 08-21-2024 Telephone encounter Dl Deleon APRN.WATER TREATMENT PLANT OPERATOR Work Phone: OB/Gynecology Start: 08-13-2024 End: 08-14-2024 Refill Silvia Grazyna Muñoz MD Work Phone: OB/Gynecology Comment on above: Refill Request Start: 05-20-2024 End: 05-22-2024 Refill Brianna Willieyareli INGRAM Work Phone: OB/Gynecology Comment on above: Refill Request Start: 08-17-2023 ambulatory Kristyn Priest Work Phone: OB/Gynecology Comment on above: Ob Delivery Note Start: 08-17-2023 End: 08-20-2023 Evaluation and management of inpatient [facility] Work Phone: Start: 08-16-2023 Telephone encounter Silvia ([facility]) Wanda Work Phone: OB/Gynecology Comment on above: Appointment Start: 08-10-2023 End: 08-10-2023 Patient encounter procedure Susana Cota MD Work Phone: OB/Gynecology Comment on above: Supervision of other high risk pregnancies, third trimester (Primary Dx); AMA (advanced maternal age) multigravida 35+, third trimester; 37 weeks gestation of ; with history of section, antepartum Start: 08-06-2023 End: 08-06-2023 Patient encounter procedure Kristyn Caceres MD Work Phone: OB/Gynecology Comment on above: Supervision of other high risk pregnancies, third trimester (Primary Dx); 36 weeks gestation of ; AMA (advanced maternal age) multigravida 35+, third trimester; with history of section, antepartum; Antepartum multigravida of advanced maternal age; History of delivery Start: 08-04-2023 End: 08-04-2023 ambulatory Brandi Kris [facility] Work Phone: Start: 08-04-2023 End: 08-04-2023 Patient encounter procedure [facility] Work Phone: Start: 08-04-2023 Telephone encounter Nayeli Axel carter APRN.CNM Work Phone: OB/Gynecology Comment on above: Bleeding With Pregna ncy Start: 07-20-2023 End: 07-20-2023 Patient encounter procedure Silvia Muñoz MD Work Phone: OB/Gynecology Comment on above: AMA (advanced matern al age) multigravida 35+, third trimester (Primary Dx); with history of section, antepartum; Supervision of other high risk pregnancies, third trimester; resulting from assisted reproductive technology, antepartum; History of delivery; 34 weeks gestation of Start: 07-16-2023 Telephone encounter Silvia Muñoz MD Work Phone: OB/Gynecology Comment on above: Appointment Start: 06-23-2023 End: 06-23-2023 Patient encounter procedure Dl Deleon APRN.WATER TREATMENT PLANT OPERATOR Work Phone: OB/Gynecology Comment on above: Supervision of other high risk pregnancies, third trimester (Primary Dx); 30 weeks gestation of ; AMA (advanced maternal age) multigravida 35+, third trimester; resulting from assisted reproductive technology, antepartum; with history of section, antepartum Start: 05-26-2023 Telephone encounter Silvia Muñoz MD Work Phone: OB/Gynecology Comment on above: Question (OB Questio n) Start: 03-19-2023 End: 03-19-2023 Patient encounter procedure Silvia Muñoz MD Work Phone: OB/Gynecology Comment on above: Antepartum multigrav santos of advanced maternal age (Primary Dx); History of delivery; resulting from assisted reproductive technology, antepartum; 16 weeks gestation of Start: 02-18-2023 End: 02-18-2023 Patient encounter procedure Brianna Tapia APRN.WATER TREATMENT PLANT OPERATOR Work Phone: OB/Gynecology Comment on above: with uncer tain dates in first trimester (Primary Dx); Encounter for anatomic survey; 12 weeks gestation of ; Antepartum multigravida of advanced maternal age; resulting from assisted reproductive technology, antepartum with uncer tain dates in first trimester (Primary Dx) Start: 02-04-2023 End: 02-04-2023 Patient encounter procedure Kristyn Caceres MD Work Phone: OB/Gynecology Comment on above: 10 weeks gestation o f (Primary Dx); Vaginal bleeding during ; Pelvic pain during Start: 01-26-2023 ambulatory Silvia Muñoz MD Work Phone: OB/Gynecology Comment on above: Sick Start: 01-18-2023 Telephone encounter Brianna Adria godwin EQUIPMENT OPERATOR/LABORER.WATER TREATMENT PLANT OPERATOR Work Phone: OB/Gynecology Comment on above: Patient Update Start: 01-11-2023 Telephone encounter Kristyn pappas MD Work Phone: OB/Gynecology Start: 12-28-2022 End: 12-28-2022 ambulatory [facility] Work Phone: Start: 12-28-2022 End: 12-28-2022 Patient encounter procedure [facility] Work Phone: Start: 12-28-2022 End: 12-28-2022 [facility] Start: 12-24-2022 End: 12-24-2022 ambulatory [facility] Work Phone: Start: 12-24-2022 End: 12-24-2022 Patient encounter procedure [facility] Work Phone: Start: 12-24-2022 End: 12-24-2022 ambulatory [facility] Start: 12-15-2022 Refill Esha Holden DANGELO.CNM Work Phone: OB/Gynecology Comment on above: Refill Request Start: 12-12-2022 Refill Esha Hatch EQUIPMENT OPERATOR/LABORER.CNM Work Phone: OB/Gynecology Comment on above: Refill Request Start: 11-29-2022 Refill Esha Holden EQUIPMENT OPERATOR/LABORER.CNM Work Phone: OB/Gynecology Comment on above: Refill Request; Refi ll Request; Refill Request Start: 03-25-2022 Refill Silvia Muñoz MD Work Phone: OB/Gynecology Comment on above: Refill Request Start: 09-17-2021 End: 09-17-2021 Patient encounter procedure Silvia Muñoz MD Work Phone: OB/Gynecology Comment on above: care and examination immediately after delivery (Primary Dx); Encounter for initial prescription of intrauterine contraceptive device (IUD) Start: 09-02-2021 ambulatory Silvia Muñoz MD Work Phone: OB/Gynecology Comment on above: Ob Delivery Note Start: 09-02-2021 End: 09-04-2021 Evaluation and management of inpatient [facility] [place] Start: 08-29-2021 End: 08-29-2021 Patient encounter procedure Silvia Muñoz MD Work Phone: OB/Gynecology Comment on above: AMA (advanced matern al age) multigravida 35+, third trimester (Primary Dx); resulting from assisted reproductive technology, antepartum; with history of section, antepartum; 38 weeks gestation of Start: 08-25-2021 End: 08-25-2021 Patient encounter procedure Nayeli Miranda APRN.CNM Work Phone: OB/Gynecology Comment on above: AMA (advanced matern al age) multigravida 35+, third trimester (Primary Dx); 37 weeks gestation of ; Uterine contractions; Breech presentation, single or unspecified fetus Start: 08-25-2021 Telephone encounter Nayeli carter APRN.CNDiana Work Phone: OB/Gynecology Comment on above: Patient Update Start: 08-22-2021 End: 08-22-2021 Patient encounter procedure Silvia Muñoz MD Work Phone: OB/Gynecology Comment on above: AMA (advanced matern al age) multigravida 35+, third trimester (Primary Dx); with history of section, antepartum; resulting from assisted reproductive technology, antepartum; 37 weeks gestation of Start: 08-14-2021 End: 08-14-2021 Patient encounter procedure Silvia Muñoz MD Work Phone: OB/Gynecology Comment on above: Multigravida of adva nced maternal age in third trimester (Primary Dx); with history of section, antepartum; History of delivery; 36 weeks gestation of Start: 08-14-2021 Telephone encounter Silvia Muñoz MD Work Phone: OB/Gynecology Comment on above: Nst (Non Stress Test ) Start: 08-01-2021 End: 08-01-2021 Patient encounter procedure Nayeli Miranda APRN.CNM Work Phone: OB/Gynecology Comment on above: Antepartum multigrav santos of advanced maternal age (Primary Dx); 34 weeks gestation of Start: 07-25-2021 End: 07-25-2021 Emergency department patient visit [facility] Start: 07-25-2021 End: 07-25-2021 Patient encounter procedure Shaun Maciel MD Work Phone: [facility] Comment on above: Cough (Primary Dx); Chest pain, unspecified type Start: 07-15-2021 End: 07-15-2021 Patient encounter procedure Silvia Muñoz MD Work Phone: OB/Gynecology Comment on above: Antepartum multigrav santos of advanced maternal age (Primary Dx); resulting from assisted reproductive technology, antepartum; History of delivery; with history of section, antepartum; 31 weeks gestation of Start: 06-28-2020 End: 06-28-2020 Patient encounter procedure MAC Ortiz [facility] Start: 06-27-2020 End: 06-28-2020 Patient encounter procedure WOODY Webb NP [facility] Start: 07-05-2018 Patient encounter procedure MAC Ortiz [facility] Start: 06-27-2018 Encounter for other preprocedural examination MAC [facility] Start: 03-18-2019 Patient encounter procedure MAC Ortiz [facility] Encounter for other preprocedural examination MAC [facility] Procedures Date Procedure Procedure Detail Performing Clinician Start: 08-17-2023 Plain X-ray abdomen Start: 08-10-2023 URINE OB DIP B/O Diego Cota MD Work Phone: Start: 07-20-2023 URINE OB DIP B/O Silvia Muñoz MD Work Phone: Start: 03-19-2023 URINE OB DIP B/O Silvia Muñoz MD Work Phone: Start: 02-18-2023 Iadna chlamydia trachomatis amplified probe tq Brianna Encino EQUIPMENT OPERATOR/LABORER.WATER TREATMENT PLANT OPERATOR Work Phone: Start: 02-18-2023 Us uterus limited 1/> fetuses Brianna Willie EQUIPMENT OPERATOR/LABORER.WATER TREATMENT PLANT OPERATOR Work Phone: Start: 09-02-2021 Viral antigen assay Start: 09-02-2021 Viral antigen assay Start: 08-29-2021 URINE OB DIP B/O Silvia Muñoz MD Work Phone: Start: 08-25-2021 URINE OB DIP B/O Perry Miranda EQUIPMENT OPERATOR/LABORER.CNM Work Phone: Start: 08-22-2021 URINE OB DIP B/O Silvia Muñoz MD Work Phone: Start: 08-14-2021 URINE OB DIP B/O Silvia Muñoz MD Work Phone: Start: 08-01-2021 URINE OB DIP B/O Norman Reaves MD Work Phone: Start: 07-25-2021 CT angiography of ch est with contrast Start: 07-15-2021 URINE OB DIP B/O Silvia Muñoz MD Work Phone: H/O: section Previous c esarean delivery affecting H/O: section Previous c esarean delivery, antepartum Plan of Treatment Date Care Activity Detail Author Start: 06-07-2033 Urine microalbumin profile DTaP,Tdap,Td Vaccine (5 - Td or Tdap) [facility] Start: 06-26-2031 Urine microalbumin profile [facility] Start: 12-11-2024 Influenza vaccination Influenz a Vaccine (Season Ended) [facility] Start: 08-17-2024 End: 08-17-2024 ambulatory 08/17/2024 7:00 AM EDT [facility] OB/Gynecology [address] [place] [address] Dl Deleon APRN.WATER TREATMENT PLANT OPERATOR [address] [place] [address] Meds OB/Gynecology Comment on above: Meds Start: 02-18-2024 HPV TESTING HPV TESTING [facility] Start: 02-18-2024 PAP TESTING PAP TESTING [facility] Start: 02-18-2024 Screening for malign ant neoplasm of cervix [facility] Start: 12-12-2023 Covid-19 Vaccine ( season) Covid-19 Vaccine ( season) [facility] Start: 12-12-2023 Influenza vaccination Influenza Vacc ine (#1) [facility] Start: 09-03-2023 End: 09-03-2023 Patient encounter procedure 09/03/2023 11:40 AM EDT Office Visit OB/Gynecology [address] [place] [id number] Silvia Schwab MD [address] [place] [id number] 1 week OB/Gynecology Comment on above: 1 week Start: 08-20-2023 End: 08-20-2023 Patient encounter procedure OB/Gynecology Comment on above: pre-op for c/s 5/15 pre-op for c/s 5/15 and NST Start: 08-20-2023 Patient discharge [facility] Start: 08-18-2023 Application of abdom inal corset [facility] Start: 08-17-2023 End: 08-18-2023 [facility] Start: 08-17-2023 Administration of medication [facility] Start: 08-17-2023 Ambulation therapy management [facility] Start: 08-17-2023 Application of device [facility] Start: 08-17-2023 Application of intermittent pneumatic compression device [facility] Start: 08-17-2023 Assessment of risk o f venous thromboembolism [facility] Start: 08-17-2023 Catheterization of vein [facility] Start: 08-17-2023 Deep breathing and coughing exercises [facility] Start: 08-17-2023 Exercises [facility] Start: 08-17-2023 Introduction of urin frances catheter [facility] Start: 08-17-2023 Measuring intake and output [facility] Start: 08-17-2023 Notification of physician [facility] Start: 08-17-2023 Procedure discontinued [facility] Start: 08-17-2023 Provision of activit y privileges [facility] Start: 08-17-2023 Skin care [facility] Start: 08-17-2023 Vital signs measurements [facility] Start: 08-17-2023 Wound care [facility] Start: 08-17-2023 Application of abdom inal corset [facility] Start: 08-17-2023 Admission procedure [facility] Start: 08-17-2023 Consultation [facility] Start: 08-17-2023 [facility] Start: 08-10-2023 End: 08-10-2023 Patient encounter procedure 08/10/2023 3:00 PM EDT Routine Office Visit OB/Gynecology [address] [place] [address] NST OB/Gynecology Comment on above: NST Start: 08-06-2023 End: 08-06-2023 Patient encounter procedure OB/Gynecology Comment on above: f/u growth and ob - LM that needs rescheduled to non M day (see 4/5 phone note) OB Start: 08-04-2023 Nonstress test [facility] Start: 08-04-2023 Obstetric monitoring [facility] Start: 08-04-2023 Vital signs measurements [facility] Start: 08-04-2023 [facility] Start: 08-04-2023 Patient discharge [facility] Start: 04-12-2023 Behavioral Health Screening Behavioral Health Screening [facility] Start: 04-12-2023 Depression Assessment Depression Ass essment [facility] Start: 02-18-2023 End: 02-19-2024 OBSTETRIC ULTRASOUND [facility] OBSTETRIC ULTRASOUND [facility] Anc Imaging Routine Encounter for anatomic survey Expected: 02/18/2023, Expires: 02/19/2024 [facility] Work Phone: Comment on above: Expected: 02/18/2023 , Expires: 02/19/2024 Start: 12-11-2022 Covid-19 Vaccine () Covid-19 Vaccine () [facility] Start: 12-11-2022 Influenza vaccination [facility] Start: 04-12-2022 DEPRESSION ASSESSMENT DEPRESSION ASS ESSMENT [facility] Start: 12-11-2021 Influenza vaccination INFLUENZA (#1) [facility] Start: 08-29-2021 End: 08-29-2022 SARS-CoV-2 (COVID-19) RNA [Presence] in Respiratory specimen by ROSA with probe detection PRE-PROCEDURE & PRE-OPERATIVE COVID Microbiology Routine 38 weeks gestation of Expected: 08/29/2021, Expires: 08/29/2022 [facility] Work Phone: Comment on above: Expected: 08/29/2021 , Expires: 08/29/2022 Start: 04-12-2021 DEPRESSION ASSESSMENT DEPRESSION ASS ESSMENT [facility] Start: 11-27-2020 COVID-19 VACCINE (3 - Booster for Pfizer series) COVID-19 VACCINE (3 - Booster for Pfizer series) [facility] Start: 08-22-2020 COVID-19 VACCINE (3 - Booster for Pfizer series) COVID-19 VACCINE (3 - Booster for Pfizer series) [facility] Start: 08-22-2020 COVID-19 VACCINE (3 - Pfizer series) COVID-19 VACCINE (3 - Pfizer series) [facility] Start: 2020 Mammography [facility] Start: 2020 Screening for malign ant neoplasm of breast Mammogram Screening [facility] Start: 1999 Hepatitis B Vaccine (1 of 3 - 19+ 3-dose series) Hepatitis B Vaccine (1 of 3 - 19+ 3-dose series) [facility] Start: 1998 Depression Screening Depression Scre ening [facility] Start: 1992 Adult depression screening assessment DEPRESSION SCREENING [facility] Start: 1980 HEPATITIS B (1 of 3 - 3-dose series) HEPATITIS B (1 of 3 - 3-dose series) [facility] Start: 1980 Hepatitis B Vaccine (1 of 3 - 3-dose series) Hepatitis B Vaccine (1 of 3 - 3-dose series) [facility] Bacteria identified in Urine by Culture URINE CULTURE Microbiology Routine 12 weeks gestation of 02/18/2023 9:07 AM EST [facility] Work Phone: nonstress test NON-S TRESS TEST Procedures Routine Multigravida of advanced maternal age in third trimester Ordered: 08/14/2021 [facility] Work Phone: Comment on above: Ordered: 08/14/2021 End: 09-01-2023 nonstress test NON-STRESS TEST Procedures Routine AMA (advanced maternal age) multigravida 35+, third trimester Once per week for 4 Occurrences starting 07/20/2023 until 09/01/2023 [facility] Work Phone: Comment on above: Once per week for 4 Occurrences starting 07/20/2023 until 09/01/2023 nonstress test NON-S TRESS TEST Procedures Routine Antepartum multigravida of advanced maternal age Ordered: 08/16/2023 [facility] Work Phone: Comment on above: Ordered: 08/16/2023 Insertion intrauteri ne device iud INSERT INTRAUTERINE DEVICE Procedures Routine Encounter for initial prescription of intrauterine contraceptive device (IUD) Ordered: 09/17/2021 [facility] Work Phone: Comment on above: Ordered: 09/17/2021 End: 12-30-2023 RASHEED SCREENING RASHEED SCREENING Radiology Routine Encounter for screening mammogram for malignant neoplasm of breast 1 Occurrences starting 12/09/2022 until 12/30/2023 [facility] Work Phone: Comment on above: 1 Occurrences starti ng 12/09/2022 until 12/30/2023 Patient Education [facility] Work Phone: Patient referral [facility] Work Phone: ROUTINE, GR OUP B STREP PCR ROUTINE, GROUP B STREP PCR Microbiology Routine 36 weeks gestation of 08/14/2021 3:57 PM EDT [facility] Work Phone: ROUTINE, GR OUP B STREP PCR ROUTINE, GROUP B STREP PCR Microbiology Routine 36 weeks gestation of 08/06/2023 4:17 PM EDT [facility] URINE OB DIP B/O URINE OB DIP B/ O Lab Routine 36 weeks gestation of AMA (advanced maternal age) multigravida 35+, third trimester with history of section, antepartum Supervision of other high risk pregnancies, third trimester Ordered: 08/06/2023 [facility] Work Phone: Comment on above: Ordered: 08/06/2023 [facility] Immunizations Immunization Date Immunization Notes Care Provider Alec naik 06-07-2023 tetanus toxoid, redu dimas diphtheria toxoid, and acellular pertussis vaccine, adsorbed Dl Deleon APRN.[employer] OPERATOR Work Phone: [facility] 05-10-2023 influenza, injectabl e, quadrivalent, contains preservative Silvia Muñoz MD Work Phone: [facility] 05-10-2023 influenza virus vaccine, unspecified formulation Brianna Tapia APRN.W[employer]ANT OPERATOR Work Phone: [facility] 06-25-2021 tetanus toxoid, redu dimas diphtheria toxoid, and acellular pertussis vaccine, adsorbed Silvia Muñoz MD Work Phone: [facility] 05-14-2021 influenza, injectabl e, quadrivalent, contains preservative Silvia Muñoz MD Work Phone: [facility] 05-14-2021 influenza virus vaccine, unspecified formulation Kristyn Caceres MD Work Phone: [facility] 07-05-2019 tetanus toxoid, redu dimas diphtheria toxoid, and acellular pertussis vaccine, adsorbed [facility] 06-15-2019 tetanus toxoid, redu dimas diphtheria toxoid, and acellular pertussis vaccine, adsorbed Silvia Muñoz MD Work Phone: [facility] 03-17-2019 influenza, injectabl e, quadrivalent, contains preservative Silvia Muñoz MD Work Phone: [facility] 03-08-2019 Influenza virus vaccine [facility] 03-08-2019 influenza, seasonal, injectable Silvia Muñoz MD Work Phone: [facility] Work Phone: 01-16-2011 influenza virus vaccine, unspecified formulation Silvia Muñoz MD Work Phone: [facility] Work Phone: Payers Date Payer Category Payer Private Health Insurance MMO SUP ERMED PPO [id number] 2022 Self-pay [id number] 2022 Unknown [id number] 2022 Blue Cross Blue Shield BLUE ACCE SS PPO Member Subscriber Plan / Payer (Effective 2022-Present) Name: ARIAN TOLEDO Relation to Subscriber: Spouse Name: ELISHA TOLEDO Date of : 1990 (Home) Address: [address] [place] [id number] Payer ID: [id number] (NAIC) Group ID: Not on file Type: PPO Address: [address] [place] [id number] 2021 Unknown 2012 Unknown MMO MMO SUPERMED PLUS [id number] 2012-Present [phone] [address] [place] [address] PPO [id number] 1980 Unknown [id number] 1980 Unknown [id number] 1980 Unknown [id number] 1980 Unknown [id number] 1959 Unknown [id number] Unknown [facility] [id number] Unknown [id number] Unknown [id number] Unknown [id number] Unknown [id number] Social History Date Type Detail Facility Start: 10-21-2010 End: 02-04-2023 Tobacco smoking status NHIS Never smoked tobacco [facility] Work Phone: Start: 10-21-2010 End: 02-04-2023 Tobacco use and exposure Smokeless tobacco non-user [facility] Work Phone: Start: 04-16-2021 End: 08-17-2023 Alcohol intake Ex-drinker (finding) [facility] Start: 10-21-2010 History SDOH Alcohol Comment occasional [facility] Start: 02-27-2021 Education 18 [facility] Start: 12-19-2020 [facility] Start: 1980 Sex Assigned At Not on file [facility] Start: 06-15-2021 End: 08-01-2021 Exposure to SARS-CoV-2 (event) Not sure [facility] Start: 07-25-2021 End: 08-17-2023 Tobacco smoking status NHIS Unknown if ever smoked [facility] Start: 08-04-2019 None [facility] Start: 07-09-2018 Spouse/ Signif icant Other [facility] Start: 08-29-2020 Non-smoker [facility] Start: 1980 Sex Assigned At Female [facility] Start: 08-15-2021 End: 08-25-2021 Exposure to SARS-CoV-2 (event) Yes [facility] Start: 09-17-2021 End: 08-17-2024 History of Social function [facility] Start: 09-17-2021 End: 08-17-2024 Tobacco use panel [facility] Adult Depression Screening Assessment 1 [facility] Goals Date Patient Goal Desired Activity /State Personal health goal Functional Status Date Assessment Result Facility 11-05-2014 Are you deaf, or do you have serious difficulty hearing No 11/05/2014 10:40 AM EDT Judith Mata Cma No [facility] 11-05-2014 Are you blind, or do you have serious difficulty seeing, even when wearing glasses No 11/05/2014 10:40 AM EDT Judith Mata Cma No [facility] 11-05-2014 Do you have serious difficulty walking or climbing stairs No 11/05/2014 10:40 AM EDT Judith Mata Cma No [facility] 11-05-2014 Do you have difficul ty dressing or bathing No 11/05/2014 10:40 AM EDT Judith Mata Cma No [facility] 11-05-2014 Because of a physica l, mental, or emotional condition, do you have difficulty doing errands alone such as visiting a physician's office or shopping No 11/05/2014 10:40 AM EDT Judith Mata Cma No [facility] Mental Status Date Assessment Result Facility 09-02-2021 Cognitive function Level Of Cons ciousness Awake;Alert;Appropriate [facility] Work Phone: 11-05-2014 Because of a physica l, mental, or emotional condition, do you have serious difficulty concentrating, remembering, or making decisions No 11/05/2014 10:40 AM EDT Judith Mata Cma No [facility] Clinical Notes 07-15-2021 to 08-14-2024 Telephone Encounter - Silvia Schwab MD - 08/14/2024 1:33 PM EDTTelephone Encounter - Silvia Schwab MD - 08/14/2024 1:33 PM EDT Note Date & Type Note Facility 08-14-2024 Telephone encount er Note Got it. Ordered [facility] 08-14-2024 Miscellaneous Notes Formattin g of this note might be different from the original. Got it. Ordered I didn't realize when I sent the first request, but this is a different dose. She takes 50mg and 25mg for a total of 75. Only the 50mg tablets were sent in today. Yvonne Vang RN Ordered from previous patient request- she needs appt for further refills after today. Patient delivered 08/17/23 and was never seen for PP visit. No upcoming appts scheduled. Sent to PSS to contact to schedule. Requested Prescriptions Pending Prescriptions Disp Refills sertraline (ZOLOFT) 25 mg tablet 90 tablet 0 Sig: take 1 tablet by mouth once daily IN ADDITION TO 50 MG TABLET FOR A TOTAL DOSE OF 75 MG Yvonne Vang RN documented in this encounter [facility] 08-14-2024 Telephone encount er Note I didn't realize when I sent the first request, but this is a different dose. She takes 50mg and 25mg for a total of 75. Only the 50mg tablets were sent in today. Yvonne Vang RN [facility] 08-14-2024 Telephone encount er Note Ordered from previous patient request- she needs appt for further refills after today. [facility] 08-14-2024 Telephone encount er Note Patient delivered 08/17/23 and was never seen for PP visit. No upcoming appts scheduled. Sent to PSS to contact to schedule. Requested Prescriptions Pending Prescriptions Disp Refills sertraline (ZOLOFT) 25 mg tablet 90 tablet 0 Sig: take 1 tablet by mouth once daily IN ADDITION TO 50 MG TABLET FOR A TOTAL DOSE OF 75 MG Yvonne Vang RN [facility] 05-22-2024 Telephone encount er Note Patient delivered 08/17/23 and never had follow up PP visits. Requested Prescriptions Pending Prescriptions Disp Refills sertraline (ZOLOFT) 50 mg tablet 90 tablet 0 Sig: take 1 tablet by mouth once daily IN ADDITION TO 25 MG TABLET FOR TOTAL DOSE OF 75 MG sertraline (ZOLOFT) 25 mg tablet 90 tablet 0 Sig: take 1 tablet by mouth once daily IN ADDITION TO 50 MG TABLET FOR A TOTAL DOSE OF 75 MG Yvonne Vang RN [facility] 05-22-2024 Miscellaneous Notes Formattin g of this note is different from the original. Patient delivered 08/17/23 and never had follow up PP visits. Requested Prescriptions Pending Prescriptions Disp Refills sertraline (ZOLOFT) 50 mg tablet 90 tablet 0 Sig: take 1 tablet by mouth once daily IN ADDITION TO 25 MG TABLET FOR TOTAL DOSE OF 75 MG sertraline (ZOLOFT) 25 mg tablet 90 tablet 0 Sig: take 1 tablet by mouth once daily IN ADDITION TO 50 MG TABLET FOR A TOTAL DOSE OF 75 MG Yvonne Vang RN documented in this encounter [facility] 08-20-2023 Discharge summary Note Date/Time August 20, 2023 8:53a m [facility] Medical Records Department [address] [place] [address] Discharge Summary 08/20/23 0850 MR#: [id number] Acct: [id number] Name: ARIAN TOLEDO Rep #:[id number] : 1980 43 From: Susana Cota MD PCP: Dr. Elena Hawkins MD Status:ADM IN Location: AF800-9 Providers Date of Admission: 08/17/23 Date of Discharge: 08/20/23 Primary Care Physician: Dr. Elena Hawkins MD Reason For Visit: REPEAT C SECTION Diagnosis Discharge Diagnosis (1) delivery delivered: Status: Acute Code(s): O82 - Encounter for delivery without indication (2) Acute blood loss anemia: Status: Acute Code(s): D62 - Acute posthemorrhagic anemia (3) Previous delivery, antepartum: Status: Acute Code(s): O34.219 - Maternal care for unspecified type scar from previous delivery Plan D/c home Medications at Discharge Home Medications vits,calcium no.78-iron fumarate-folic acid 29 mg-1 mg tablet 1 tab PO DAILY 08/04/19 sertraline 25 mg tablet 75 mg PO DAILY Check with primary doctor 07/25/21 sertraline 50 mg tablet 50 mg PO DAILY Check with primary doctor 07/25/21 docusate sodium 100 mg capsule (Colace) 100 mg PO BID #30 caps 09/04/21 ibuprofen 600 mg tablet 600 mg PO Q6H #30 tabs 08/20/23 Hospital Course Operations section (with tubal) Procedures None Summary of Care Provided Minutes Spent on Discharge: 21 Hospital Course: Presented in active labor at 7 cm. Initially attempt TOLAC however EFM with nonreassuring FHR and STAT c/s performed. Uncomplicated course. Breast feeding well. Physical Exam Const alert General Appearance: cooperative GI GI Narrative: soft, moderate distention, fundus firm, appropriately tender. Abdominal bandageclean dry and intact Weight / BMI Weight Weight: 67.6 kg Body Mass Index (BMI) 29.0 ABG / Lab / Microbiology Data 08/19/23 05:50 D/C Instructions Discharge Diet: No restrictions May resume sexual activity in: 4-6 weeks Lifting Restrictions: 20 pounds Additional Activity Instructions: Nothing in the vagina for 4-6 weeks. You may return to work/school in 6 weeks. Call your doctor if your incision/area has: Continuous Slow Oozing, Sudden Increased Bleeding, Increased Pain/ Swelling, Increased Redness and Foul Smelling Discharge Call your doctor if you observe: Fever of 101 or Higher and Using more than 1 pad per hour (for 2 hours) Suture Line Care: Avoid Pulling/Pushing and Avoid Pinching/Bending Cleanse incision/area with: Keep Dressing Clean & Dry Please Follow Up With: Brandi Ponce MD When: Call to make an appointment for an incision check in 1-2 [phone]. You will need a post check in 6 weeks. Meaningful Use Info Meaningful Use Meaningful Use Diagnoses (Choose all that apply): None applicable Ischemic Stroke Statin Dosing Therapy Reference: STATIN DOSE THERAPY REFERENCE: * Patients > 75 years receive moderate or high dose statin therapy. * Patients 75 years or YOUNGER should receive HIGH intensity statin dose unless contraindicated. You will be required to document reason for non-treatment if statin daily dose does not meet guidelines. HIGH DOSE STATIN THERAPY DAILY Atorvastatin > than or = to 40 mg Rosuvastatin > than or = to 20 mg Amlodipine + Atorvastatin > than or = to 2.5/40 mg Ezetimibe + Simvastatin 10/80 mg Simvastatin 80mg Discharge Plan Admission Admit Date/Time: 08/17/23 01:51 Primary Reason for Your Visit: active labor Attending Provider: Kristyn Caceres Primary Care Provider: Elena Hawkins Discharge Orders/Prescriptions Prescriptions: New ibuprofen 600 mg Tablet 600 mg PO Q6H Qty: 30 0RF Continued vit,[id number]-[id number] 1 TABLET tablet 1 tab PO DAILY docusate sodium [Colace] 100 mg capsule 100 mg PO BID Qty: 30 0RF sertraline 25 mg tablet 75 mg PO DAILY Patient Comments: take 1 tablet by mouth once daily IN ADDTITION TO 50 MG TABLET sertraline 50 mg tablet 50 mg PO DAILY Patient Comments: take 1 tablet by mouth once daily IN ADDITION TO 25 MG TABLET Discontinued diphenhydramine HCl [Sleeping] 50 mg capsule 50 mg PO QHS aspirin [Aspirin Childrens] 81 mg tablet,chewable 1 tab PO DAILY Referrals / Follow Up: Elena Hawkins MD [Primary Care Provider] - Disposition Disposition (needs filled in before D/C Order can be placed): Home, Self Care 08/20/23 0853 <Electronically signed by Susana Cota MD> Cosigner Signature (if applicable): CC: Dr. Elena Hawkins MD; Dr. Susana Cota MD~ Signed [facility] Work Phone: 1(286) 198-505305-10-2024 Progress note Author Susana Cota [facility] August 20, 2023 8:47am Note Date/Time August 20, 2023 8:47a m [facility] Medical Records Department [address] [place] [address] Progress Note - OBGYN 08/20/23 0845 MR#: [id number] Acct: [id number] Name: ARIAN TOLEDO Rep #:[id number] : 1980 43 From: Susana Cota MD PCP: Dr. Elena Hawkins MD Status:ADM IN Location: [place] [address]-1 Subjective Subjective Breast feeding well. Minimal bleeding. Pain controlled. Objective Data Objective Data Vital Signs: Vital Signs Temp Pulse Resp BP Pulse Ox O2 Del Method O2 Flow Rate 98.3 F 76 16 113/58 L 97 Room Air 1 08/20/23 07:57 08/20/23 07:57 08/20/23 07:57 08/20/23 07:57 08/20/23 07:57 08/20/23 07:57 08/17/23 06:45 Oxygen Flow Rate (L/min) 1 Oxygen Delivery Method Room Air Weight: 67.6 kg Body Mass Index (BMI) 29.0 Intake & Output: Intake and Output for Last 24 Hours 08/18/23 08/19/23 08/20/23 23:59 23:59 23:59 Output Total 800 / 800 Balance -800 / -800 Lab / Micro Data 08/19/23 05:50 Physical Exam Const alert General Appearance: cooperative GI GI Narrative: soft, moderate distention, fundus firm, appropriately tender. Abdominal bandageclean dry and intact Assessment & Plan (1) delivery delivered: (2) Acute blood loss anemia: (3) Previous delivery, antepartum: PLAN: Plan D/c home 08/20/23 0847 <Electronically signed by Susana Cota MD> Cosigner Signature (if applicable): CC: ~ Signed [facility] Work Phone: 1(276) 677-809905-10-2024 [facility] Medical Records Department [address] [place] [address] Discharge Summary 08/20/23 0850 MR#: [id number] Acct: [id number] Name: ARIAN TOLEDO Rep #: [id number] : 1980 43 From: Susana Cota MD PCP: Dr. Elena Hawkins MD Status:ADM IN Location: KB307-3 Providers Date of Admission: 08/17/23 Date of Discharge: 08/20/23 Primary Care Physician: Dr. Elena Hawkins MD Reason For Visit: REPEAT C SECTION Diagnosis Discharge Diagnosis (1) delivery delivered: Status: Acute Code(s): O82 - Encounter for delivery without indication (2) Acute blood loss anemia: Status: Acute Code(s): D62 - Acute posthemorrhagic anemia (3) Previous delivery, antepartum: Status: Acute Code(s): O34.219 - Maternal care for unspecified type scar from previous delivery Plan D/c home Medications at Discharge Home Medications vits,calcium no.78-iron fumarate-folic acid 29 mg-1 mg tablet 1 tab PO DAILY 08/04/19 sertraline 25 mg tablet 75 mg PO DAILY Check with primary doctor 07/25/21 sertraline 50 mg tablet 50 mg PO DAILY Check with primary doctor 07/25/21 docusate sodium 100 mg capsule (Colace) 100 mg PO BID #30 caps 09/04/21 ibuprofen 600 mg tablet 600 mg PO Q6H #30 tabs 08/20/23 Hospital Course Operations section (with tubal) Procedures None Summary of Care Provided Minutes Spent on Discharge: 21 Hospital Course: Presented in active labor at 7 cm. Initially attempt TOLAC however EFM with nonreassuring FHR and STAT c/s performed. Uncomplicated course. Breast feeding well. Physical Exam Const alert General Appearance: cooperative GI GI Narrative: soft, moderate distention, fundus firm, appropriately tender. Abdominal bandage clean dry and in tact Weight / BMI Weight Weight: 67.6 kg Body Mass Index (BMI) 29.0 ABG / Lab / Microbiology Data 08/19/23 05:50 D/C Instructions Discharge Diet: No restrictions May resume sexual activity in: 4-6 weeks Lifting Restrictions: 20 pounds Additional Activity Instructions: Nothing in the vagina for 4-6 weeks. You may return to work/school in 6 weeks. Call your doctor if your incision/area has: Continuous Slow Oozing, Sudden Increased Bleeding, Increased Pain/ Swelling, Increased Redness and Foul Smelling Discharge Call your doctor if you observe: Fever of 101 or Higher and Using more than 1 pad per hour (for 2 hours) Suture Line Care: Avoid Pulling/Pushing and Avoid Pinching/Bending Cleanse incision/area with: Keep Dressing Clean Dry Please Follow Up With: Brandi Ponce MD When: Call to make an appointment for an incision check in 1-2 [phone]. You will need a post check in 6 weeks. Meaningful Use Info Meaningful Use Meaningful Use Diagnoses (Choose all that apply): None applicable Ischemic Stroke Statin Dosing Therapy Reference: STATIN DOSE THERAPY REFERENCE: * Patients > 75 years receive moderate or high dose statin therapy. * Patients 75 years or YOUNGER should receive HIGH intensity statin dose unless contraindicated. You will be required to document reason for non-treatment if statin daily dose does not meet guidelines. HIGH DOSE STATIN THERAPY DAILY Atorvastatin > than or = to 40 mg Rosuvastatin > than or = to 20 mg Amlodipine + Atorvastatin > than or = to 2.5/40 mg Ezetimibe + Simvastatin 10/80 mg Simvastatin 80mg Discharge Plan Admission Admit Date/Time: 08/17/23 01:51 Primary Reason for Your Visit: active labor Attending Provider: Kristyn Caceres Primary Care Provider: Elena Hawkins Discharge Orders/Prescriptions Prescriptions: New ibuprofen 600 mg Tablet 600 mg PO Q6H Qty: 30 0RF Continued vit,[id number]-udzz-fbbzm 1 TABLET tablet 1 tab PO DAILY docusate sodium [Colace] 100 mg capsule 100 mg PO BID Qty: 30 0RF sertraline 25 mg tablet 75 mg PO DAILY Patient Comments: take 1 tablet by mouth once daily IN ADDTITION TO 50 MG TABLET sertraline 50 mg tablet 50 mg PO DAILY Patient Comments: take 1 tablet by mouth once daily IN ADDITION TO 25 MG TABLET Discontinued diphenhydramine HCl [Sleeping] 50 mg capsule 50 mg PO QHS aspirin [Aspirin Childrens] 81 mg tablet,chewable 1 tab PO DAILY Referrals / Follow Up: Elena Hawkins MD [Primary Care Provider] - Disposition Disposition (needs filled in before D/C Order can be placed): Home, Self Care 08/20/23 1885 Cosigner Signature (if applicable): CC: Dr. Elena Hawkins MD; Dr. Susana Cota MD [facility] Progress note Author Silvia forrest [facility] August 19, 2023 7:20am Note Date/Time August 19, 2023 7:19am [facility] Medical Records Department [address] [place] [address] Progress Note 08/19/23 0717 MR#: [id number] Acct: [id number] Name: ARIAN TOLEDO Rep #:[id number] : 1980 43 From: Silvia Muñoz MD PCP: Dr. Elena Hawkins MD Status:ADM IN [facility] Subjective Subjective patient seen at bedside, doing well. Patient reports good pain control however having more then previous since had general anesthesia - throat is irritated andfinds herself coughing more due to irritation from the tube. lochia mild. Passing flatus. breast feeding well without concerns. Objective Data Objective Data Vital Signs: Vital Signs Temp Pulse Resp BP Pulse Ox O2 Del Method O2 Flow Rate 97.7 F L 91 18 95/65 97 Room Air 1 08/18/23 14:16 08/19/23 02:38 08/19/23 02:38 08/19/23 02:38 08/18/23 14:16 08/19/23 02:38 08/17/23 06:45 Oxygen Flow Rate (L/min) 1 Oxygen Delivery Method Room Air Weight: 67.6 kg Body Mass Index (BMI) 29.0 Intake & Output: Intake and Output for Last 24 Hours 08/17/23 08/18/23 08/19/23 23:59 23:59 23:59 Intake Total 2930 / 2930 Output Total 2200 / 2200 800 / 800 Balance 730 / 730 -800 / -800 Lab / Micro Data 08/19/23 05:50 Labs: Laboratory Results - last 24 hr 08/18/23 11:35: WBC 10.2, RBC 2.81 L, Hgb 8.2 L, Hct 25.3 L, MCV 90.0, MCH 29.2,MCHC 32.4, RDW Std Deviation 43.4, RDW Coeff of Phill 13.3, Plt Count 273, MPV 10.4 08/19/23 05:50: WBC 8.1, RBC 2.83 L, Hgb 8.0 L, Hct 25.7 L, MCV 90.8, MCH 28.3, MCHC 31.1 L, RDW Std Deviation 44.4 H, RDW Coeff of Phill 13.6, Plt Count 290, MPV10.1 Physical Exam Narrative fundus firm. Dressing dry and intact. Const alert and oriented x3 General Appearance: cooperative HEENT normocephalic Neck General: normal visual inspection GI soft to palpation and non-distended GI Narrative: Fundus firm Extremity normal to inspection and no calf tenderness Skin no rashes or lesions noted Neuro oriented x3 and CN's II-XII intact bilaterally Psych mental status grossly normal Assessment & Plan Assessment/Plan (1) delivery delivered: (2) Acute blood loss anemia: PLAN: Plan POD# 2 , Doing well Routine care pain mgmt monitor VS ambulation anticipate dc home tomorrow- keep today for pain control 08/19/23 0719 <Electronically signed by Silvia Muñoz MD> Silvia Muñoz MD [employer] Signature (if applicable): CC: ~ Signed ADDENDUM by Diana Raymond on 08/19/23 at 0720 Addendum hg/hct is stable. pt is asymptomatic for acute blood loss anemia. 08/19/23 0720 <Electronically signed by Silvia mulligan MD> Date _ Silvia Muñoz MDer Signature (if applicable): Date cc: ~* Signed [facility] Work Phone: 1(764) 811-633705-08-2024 Progress note Author Brandi Ponce [facility] August 18, 2023 9:28am Note Date/Time August 18, 2023 9:28am [facility] Medical Records Department [facility] [place] [address] Progress Note - OBGYN 08/18/23 0926 MR#: [id number] Acct: [id number] Name: ARIAN TOLEDO Rep #:[id number] : 1980 43 From: Brandi Ponce MD PCP: Dr. Elena Hawkins MD Status:ADM IN [id number] Subjective Subjective Pain well controlled, average lochia. Denies N/V or lightheadedness or CP/SOB. Objective Data Objective Data Vital Signs: Vital Signs Temp Pulse Resp BP Pulse Ox O2 Del Method O2 Flow Rate 98.2 F 97 16 86/68 L 100 Room Air 1 08/18/23 07:58 08/18/23 07:58 08/18/23 07:58 08/18/23 07:58 08/18/23 07:58 08/18/23 07:58 08/17/23 06:45 Oxygen Flow Rate (L/min) 1 Oxygen Delivery Method Room Air Weight: 67.6 kg Body Mass Index (BMI) 29.0 Intake & Output: Intake and Output for Last 24 Hours 08/16/23 08/17/23 08/18/23 23:59 23:59 23:59 Intake Total 2930 / 2930 Output Total 2200 / 2200 800 / 800 Balance 730 / 730 -800 / -800 Lab / Micro Data 08/18/23 05:25 Labs: Laboratory Results - last 24 hr 08/18/23 05:25: WBC 9.1, RBC 2.76 L, Hgb 7.9 L, Hct 24.6 L, MCV 89.1, MCH 28.6, MCHC 32.1, RDW Std Deviation 43.1, RDW Coeff of Phill 13.4, Plt Count 235, MPV 9.5 Physical Exam Const alert General Appearance: cooperative GI GI Narrative: soft, moderate distention, fundus firm, appropriately tender. Abdominal bandageclean dry and intact Assessment & Plan (1) Acute blood loss anemia: PLAN: POD#1 s/p repeat c/s. Doing well overall. Tolerating acute blood anemia well. Recheck CBC at noon today and am tomorrow. and doing well. routine postop care. (2) delivery delivered: 08/18/23927 <Electronically signed by Brandi Ponce MD> Cosigner Signature (if applicable): CC: ~ Signed [facility] Work Phone: 1([phone]) 307-160105-07-2024 History of Present illness Narrative* Susana Rich, RN - 08/17/2023 8:27 AM EDT Patient delivered via C/S at [facility] on 08/17/23 per Kristyn Caceres D.O . See OB Outcome note. Susana Rich RN documented in [facility] encounterTr[facility] Progress note Author Kristyn Caceres [facility] August 17, 2023 5:14am Note Date/Time August 17, 2023 5:14am [facility] Medical Records Department [address] [place] [id number] Progress Note 08/17/23 0509 MR#: [id number] Acct: [id number] Name: ARIAN TOLEDO Rep #:[id number] : 1980 43 From: Kristyn Caceres DO PCP: Dr. Elena Hawkins MD Status:ADM IN [id number] Progress Note Patient still uncomfortable with contractions after epidural. No bleeding. Assessment & Plan Assessment/Plan (1) LLQ pain: (2) Non-reassuring heart rate or rhythm affecting management of fetus: (3) Active labor: (4) AMA (advanced maternal age) multigravida 35+: (5) Previous delivery, antepartum: (6) 38 weeks gestation of : PLAN: Plan At bedside with patient after epidural. The patient was still uncomfortable withher epidural. Cvx 9/100/0 and AROM performed for clear fluid. FHT 150 bpm with moderate variability but decelerations noted to 90 bpm. The patient's blood pressure was low and anesthesia was at bedside addressing hypotension, and the patient made quick change from 7 to 9 cm. However the decelerations continued and then patient noted severe LLQ pain. Discussed with patient and partner at bedside concern for uterine rupture given non reassuring heart tracing andpain. Cvx on recheck still 9 cm. Recommended repeat section. Patient desires bilateral salpingectomy. Patient consent to proceed with repeat cesareansection. 08/17/23513 <Electronically signed by Kristyn Caceres DO> Kristyn Caceres DO Cosigner Signature (if applicable): CC: ~ Signed [facility] Work Phone: 1([phone] 135-579905-07-2024 History and physical note Author Kristyn Caceres [facility] August 17, 2023 5:09am Note Date/Time August 17, 2023 2:19am [facility] Medical Records Department [address] [facility] [place] [address] H&P Exam - TABLE CUT OFF SAW OPERATOR 08/17/23 0213 MR#: [id number] Acct: [id number] Name: ARIAN TOLEDO Rep #:[id number] : 1980 43 From: Kristyn Caceres DO PCP: Dr. Elena Hawkins MD Status:ADM IN [id number] HPI - General General Date of Admission: 08/17/23 Date of Service: 08/17/23 Chief Complaint: active labor HPI Narrative ARIAN TOLEDO, is a 43 F who presents in active labor with ctx's q 2-3 min and 7 cm dilated with BBOW. No bleeding or lof. Good FM. She offers no other complaints. [facility] Medical History Anxiety delivery delivered History of pre-term labor Infertility Migraines depression Home Medications vits,calcium no.78-iron fumarate-folic acid 29 mg-1 mg tablet 1 tab PO DAILY 08/04/19 [History Last Taken 08/03/23 21:00] sertraline 25 mg tablet 75 mg PO DAILY Check with primary doctor 07/25/21 [History Last Taken 08/03/23 21:00 75 mg] sertraline 50 mg tablet 50 mg PO DAILY Check with primary doctor 07/25/21 [History Last Taken Unknown] docusate sodium 100 mg capsule (Colace) 100 mg PO BID #30 caps 09/04/21 [Rx Last Taken Unknown] aspirin 81 mg chewable tablet (Aspirin Childrens) 1 tab PO DAILY 08/04/23 [History Last Taken 08/03/23 21:00 1 TAB] diphenhydramine HCl 50 mg capsule (Sleeping) 50 mg PO QHS 08/04/23 [History Last Taken 08/03/23 21:00 50 mg] Allergy/AdvReac Type Severity Reaction Status Date / Time azithromycin [From Zithromax] Allergy Chest Verified 08/04/23 15:10 tightness doxycycline Allergy Chest Verified 08/04/23 15:10 tightness Surgical History Delivery by section History of gynecologic surgery Previous section Social History Smoking Status: Never smoker History Elective abortions Hx Para 3 Spontaneous abortions Hx # Term Pregnancies Ectopic pregnancies Hx # Pregnancies Multiple births # of living children NST FHR Rate Baby A Baseline: 150 Variability:: Moderate Accelerations:: None Decelerations:: Variable Uterine Activity:: ctx's q 2-3 min Vital Signs Vital Signs Vital Signs: 08/17/23 01:51 08/17/23 01:51 08/17/23 02:07 Temperature Temperature Source Pulse Rate 96 103 H Respiratory Rate Blood Pressure 108/69 Blood Pressure Mean BP Systolic 108 BP Diastolic 69 Blood Pressure Source Blood Pressure Position Blood Pressure Location Pulse Ox Oxygen Delivery Method 08/17/23 02:07 08/17/23 02:11 08/17/23 02:12 Temperature Temperature Source Pulse Rate 99 Respiratory Rate Blood Pressure 130/82 H Blood Pressure Mean BP Systolic 130 BP Diastolic 82 Blood Pressure Source Blood Pressure Position Blood Pressure Location Pulse Ox 100 Oxygen Delivery Method 08/17/23 02:11 08/17/23 02:12 08/17/23 01:55 Temperature 99.1 F Temperature Source Temporal Pulse Rate 106 H 98 Respiratory Rate 16 Blood Pressure 108/69 Blood Pressure Mean 82 BP Systolic BP Diastolic Blood Pressure Source Monitor Blood Pressure Position Semi-Fowlers Blood Pressure Location Left Arm Pulse Ox 100 100 Oxygen Delivery Method Room Air Weight Weight: 149 lb 0.52 oz Body Mass Index (BMI) 29.0 Physical Exam Const alert and no apparent distress Constitutional Narrative: Uncomfortable HEENT normocephalic Resp normal respiratory effort Narrative: Cvx 7/90/0 BBOW vertex Labs Labs Labs: Blood Type A POSITIVE Antibody Screen NEGATIVE Hct 38.6 % (37-47) Hgb 12.8 g/dL (12.0-15.0) Syphilis Total Ab Non-reactive Rubella IgG Antibody Reactive (Nonreactive) Hepatitis C Ab (EIA) <0.1 s/co ratio (0.0-0.9) Rhogam given: No Assessment & Plan (1) 38 weeks gestation of : PLAN: Admit to L&D for active labor. The patient requested to proceed with TOLACgiven active labor. Discussed 2 prior sections is not an absolute contraindication to trying for a vaginal delivery. Discussed risk of uterine rupture. Discussed r/b/a repeat section versus TOLAC and the patient desires a TOLAC given 7 cm with BBOW. Anesthesia at bedside for epidural. Will AROM after epidural. Pelvis adequate and expected EFW < 4500 g. GBS negative. (2) Active labor: (3) Active labor at term: (4) Advanced maternal age (AMA), 40 years or greater: (5) Previous delivery affecting : 08/17/23 0509 <Electronically signed by Kristyn Caceres DO> Cosigner Signature (if applicable): CC: Dr. Elena Hawkins MD; Dr. Kristyn Caceres DO~ Signed [facility] Work Phone: [phone]) 116-670905-07-[address] [facility] 08-16-2023 Telephone encounter Note* Telephone Encounter - Baylee Conte RN - 08/16/2023 3:52 PM EDT [employer] message sent to patient per request. Baylee Conte RN [facility]05-06-2024 Miscellaneous Notes* Telephone Encounter - Baylee Conte RN - 08/16/2023 3:52 PM EDT [employer] message sent to patient per request. Baylee Conte RN * Telephone Encounter - Esha Hatch APRN.CNM - 08/16/2023 3:39 PM EDT Yes, it is just weekly so that is ok, just make sure NST is scheduled same day please. Thanks, Esha Hatch APRN.CNM * Telephone Encounter - Esha Hatch APRN.CNM - 08/16/2023 2:15 PM EDT She needs weekly NSTs so will need an NST with visit this week, please add to schedule. Esha Hatch APRN.CNM * Telephone Encounter - Baylee Conte RN - 08/16/2023 12:45 PM EDT Patient 37w6d last seen in office on 08/09 and had an NST. Patient has appointment this Wednesday for pre op, C/S on 08/24. Patient asking if she should have NST only appointment earlier in the week or ifok to wait to have NST on Wednesday. NST would have to be anytime after 2:20. OK to send patient a SHADOW message with instructions. Baylee Conte RN documented in this encounterTr[facility]05-06-2024 Telephone encounter Note * Telephone Encounter - Esha Hatch APRN.CNM - 08/16/2023 3:39 PM EDT Yes, it is just weekly so that is ok, just make sure NST is scheduled same day please. Thanks, Esha Hatch APRN.CNM [facility]05-06-2024 Telephone encounter Note* Telephone Encounter - Esha Hatch APRN.CNM - 08/16/2023 2:15 PM EDT She needs weekly NSTs so will need an NST with visit this week, please add to schedule. Esha Hatch APRN.CNM [facility]05-06-2024 Telephone encounter Note* Telephone Encounter - Baylee Conte RN - 08/16/2023 12:45 PM EDT Patient 37w6d last seen in office on 08/09 and had an NST. Patient has appointment this Wednesday for pre op, C/S on 08/24. Patient asking if she should have NST only appointment earlier in the week or ifok to wait to have NST on Wednesday. NST would have to be anytime after 2:20. OK to send patient a SHADOW message with instructions. Baylee Conte RN [facility]04-30-2024 History of Present illness Narrative* Susana Cota MD - 08/10/2023 3:29 PM EDT NST SUMMARY PROVIDER ASSESSMENT AND INTERPRETATION Indications for NST: AMA Baseline: 130 Variability: Moderate Accelerations: Present 15 X 15 Decelerations: None Interpretation: Category I SIGNATURE: Susana Cota MD documented in this encounterTrinity [facility]04-30-2024 Progress note* Quick Notes - Susana Cota MD - 08/10/2023 3:27 PM EDT S: Arian Toledo is a 43 year old female who presents at 08/31/2023, by Ultrasound for a routine visit. Denies headache, visual changes, chest pain, shortness of breath, vaginal bleeding, leakage of fluid, or dysuria. Feeling well, no complaints. Few contractions but not painful O: See flow sheet Gen: No apparent distress Abd: Gravid, nontender Declines cervical exam GBS negative Repeat c/s on 08/24 Reactive NST ASSESSMENT/PLAN: 1. Supervision of other high risk pregnancies, third trimester - ICD9: V23.89, ICD10: O09.893 (primary diagnosis) 2. AMA (advanced maternal age) multigravida 35+, third trimester - ICD9: 659.63, ICD10: O09.523 - URINE OB DIP B/O 3. 37 weeks gestation of - ICD9: V22.2, ICD10: Z3A.37 - URINE OB DIP B/O 4. with history of section, antepartum - ICD9: 654.23, ICD10: O34.219 Repeat scheduled Susana Cota MD [facility]04-30-2024 Miscellaneous Notes* Quick Notes - Susana Cota MD - 08/10/2023 3:27 PM EDT S: Arian Toledo is a 43 year old female who presents at 08/31/2023, by Ultrasound for a routine visit. Denies headache, visual changes, chest pain, shortness of breath, vaginal bleeding, leakage of fluid, or dysuria. Feeling well, no complaints. Few contractions but not painful O: See flow sheet Gen: No apparent distress Abd: Gravid, nontender Declines cervical exam GBS negative Repeat c/s on 08/24 Reactive NST ASSESSMENT/PLAN: 1. Supervision of other high risk pregnancies, third trimester - ICD9: V23.89, ICD10: O09.893 (primary diagnosis) 2. AMA (advanced maternal age) multigravida 35+, third trimester - ICD9: 659.63, ICD10: O09.523 - URINE OB DIP B/O 3. 37 weeks gestation of - ICD9: V22.2, ICD10: Z3A.37 - URINE OB DIP B/O 4. with history of section, antepartum - ICD9: 654.23, ICD10: O34.219 Repeat scheduled Susana Cota MD documented in this encounterTr[facility]04-30-2024 Instructions* Patient Instructions* Yuko Holland MA - 08/10/2023 2:44 PM EDT SEQUENTIAL SCREENINGS The [facility] offers sequential screenings for women who are interested in screenings for chromosomal abnormalities and certain defects during a . The sequential screen combinesultrasound and blood tests to determine the risk of chromosomal abnormalities, including Down's Syndrome (Trisomy 21) and Trisomy 18, as well as open neural tube defects including spina bifida. Ultrasound examination is performed between 11 weeks and 13 weeks gestational age. Blood tests are drawn after the ultrasound and again later in the between 15 and 21 weeks gestational age. Please let your physician know if you are interested in this testing. It will require an appointment withour satellite dish technician. This is not an ultrasound performed by a physician in our office during a routine visit. SIGNS AND SYMPTOMS OF LABOR 1. Contractions every 10 minutes or more often 2. Clear, pink, or brownish fluid (water) leaking from vagina 3. Feeling that baby is pushing down, pressure 4. Low, dull backache 5. Cramps that feel like a period 6. Cramps with or without diarrhea If you notice any of the above symptoms, contact our office at [phone] and ask to speak with anurse. After hours, you can call doctors registry at [phone] OR call [facility] at [phone] ask to have the doctor automobile sales consultant paged. If you consider this an emergency, dial 9-1-1 or go to your nearest emergency department. NEED HELP? Are you dealing with a violent or abusive relationship? Are you a victim of rape or sexual assult? Call [facility] ([facility] 24 hour Crisis Hotline: 127.955.4530 or 512-200-1492. MANUAL Your Guide to a Healthy manual is now on-line. Visit [email or web address] to download your free copy documented in this encounterTrinity [facility]04-26-2024 Progress note* Quick Notes - Kristyn Caceres MD - 08/06/2023 8:52 PM EDT SW- pt doing well. No ctx, vb, lof. Good FM. GBS today. Plans repeat section. BPP 11/17 today. Growth ultrasound final report pending. RTO 1 wk for visit and NST. Kristyn Caceres DO [facility]04-26-2024 Miscellaneous Notes* Quick Notes - Kristyn Caceres MD - 08/06/2023 8:52 PM EDT SW- pt doing well. No ctx, vb, lof. Good FM. GBS today. Plans repeat section. BPP 11/17 today. Growth ultrasound final report pending. RTO 1 wk for visit and NST. Kristyn Caceres DO documented in this encounterTr[facility]04-26-2024 Instructions* Patient Instructions* Yuko Holland MA - 08/06/2023 3:22 PM EDT SEQUENTIAL SCREENINGS The [facility] offers sequential screenings for women who are interested in screenings for chromosomal abnormalities and certain defects during a . The sequential screen combinesultrasound and blood tests to determine the risk of chromosomal abnormalities, including Down's Syndrome (Trisomy 21) and Trisomy 18, as well as open neural tube defects including spina bifida. Ultrasound examination is performed between 11 weeks and 13 weeks gestational age. Blood tests are drawn after the ultrasound and again later in the between 15 and 21 weeks gestational age. Please let your physician know if you are interested in this testing. It will require an appointment withour satellite dish technician. This is not an ultrasound performed by a physician in our office during a routine visit. SIGNS AND SYMPTOMS OF LABOR 1. Contractions every 10 minutes or more often 2. Clear, pink, or brownish fluid (water) leaking from vagina 3. Feeling that baby is pushing down, pressure 4. Low, dull backache 5. Cramps that feel like a period 6. Cramps with or without diarrhea If you notice any of the above symptoms, contact our office at [phone] and ask to speak with anurse. After hours, you can call doctors registry at [phone] OR call [facility] at [phone] ask to have the doctor automobile sales consultant paged. If you consider this an emergency, dial 9--0 or go to your nearest emergency department. NEED HELP? Are you dealing with a violent or abusive relationship? Are you a victim of rape or sexual assult? Call [facility] ([place]) 24 hour Crisis Hotline: 203.166.4887 or 410-867-6920. MANUAL Your Guide to a Healthy manual is now on-line. Visit [email or web address] to download your free copy documented in this encounterTrinity [facility]04-24-2024 Telephone encounter Note * Telephone Encounter - Susana Rich RN - 08/04/2023 2:43 PM EDT 36w1d Patient states that her pants felt wet and went to the bathroom thinking her water may have broke. Underwear and pants soaked in bright red blood. Had mild cramping all day. Good FM. Not leaking fluid that she knows of. She called the office moments after it happened. Advised to go to L&D for evaluation. L&D and providers automobile sales consultant notified. Susana Rich RN [facility]04-24-2024 Miscellaneous Notes* Telephone Encounter - Susana Rich RN - 08/04/2023 2:43 PM EDT 36w1d Patient states that her pants felt wet and went to the bathroom thinking her water may have broke. Underwear and pants soaked in bright red blood. Had mild cramping all day. Good FM. Not leaking fluid that she knows of. She called the office moments after it happened. Advised to go to L&D for evaluation. L&D and providers automobile sales consultant notified. Susana Rich RN documented in this encounterTrinity [facility]04-10-2024 Miscellaneous Notes* Telephone Encounter - Yvonne Vang RN - 07/21/2023 9:06 AM EDT Left message for patient to call office. Yvonne Vang RN * Telephone Encounter - Yvonne Vang RN - 07/16/2023 11:26 AM EDT Left message for patient to call office. I did place 08/05 3:30 u/s slot on hold since she typicallyneeds later afternoon times. Yvonne Vang RN * Telephone Encounter - Silvia Schwab MD - 07/16/2023 10:30 AM EDT Pt is high risk but if there is someone else that needs to have that spot with MFM it is ok to moveher. * Telephone Encounter - Yvonne Vang RN - 07/16/2023 10:25 AM EDT 33w3d Patient has growth u/s on 08/02, which is a MFM day. Does this need to be with MFM or can she be moved to make room for a MFM consult patient? Yvonne Vang RN documented in this encounterTr[facility]04-09-2024 Miscellaneous Notes* Quick Notes - Silvia Schwab MD - 07/20/2023 3:28 PM EDT DM- Pt doing well today. Denies Vaginal Bleeding, Leaking fluid, or contractions. Pt reports good movement. Growth us scheduled, nsts starting next visit. RTO 2 weeks. Kick counts and labor reviewed. Silvia Muñoz MD documented in this encounterTrinity [facility]04-09-2024 Instructions* Patient Instructions* Komal Redman MA - 07/20/2023 3:04 PM EDT SEQUENTIAL SCREENINGS The [facility] offers sequential screenings for women who are interested in screenings for chromosomal abnormalities and certain defects during a . The sequential screen combinesultrasound and blood tests to determine the risk of chromosomal abnormalities, including Down's Syndrome (Trisomy 21) and Trisomy 18, as well as open neural tube defects including spina bifida. Ultrasound examination is performed between 11 weeks and 13 weeks gestational age. Blood tests are drawn after the ultrasound and again later in the between 15 and 21 weeks gestational age. Please let your physician know if you are interested in this testing. It will require an appointment withour satellite dish technician. This is not an ultrasound performed by a physician in our office during a routine visit. SIGNS AND SYMPTOMS OF LABOR 1. Contractions every 10 minutes or more often 2. Clear, pink, or brownish fluid (water) leaking from vagina 3. Feeling that baby is pushing down, pressure 4. Low, dull backache 5. Cramps that feel like a period 6. Cramps with or without diarrhea If you notice any of the above symptoms, contact our office at [phone] and ask to speak with anurse. After hours, you can call doctors registry at [phone] OR call [facility] at [phone] ask to have the doctor automobile sales consultant paged. If you consider this an emergency, dial or go to your nearest emergency department. NEED HELP? Are you dealing with a violent or abusive relationship? Are you a victim of rape or sexual assult? Call [facility] ([facility] 24 hour Crisis Hotline: 815.808.4807 or 515-551-0671. MANUAL Your Guide to a Healthy manual is now on-line. Visit [email or web address] to download your free copy documented in this encounterTrinity [facility]03-13-2024 Miscellaneous Notes* Quick Notes - Dl Deleon APRN.CNP - 06/23/2023 3:22 PM EDT S: Arian is a 43 year old female who presents at 30w1d for a routine visit. Feeling movement. Denies headache, visual changes, chest pain, shortness of breath, vaginal bleeding, leakage of fluid, or dysuria. Feeling well, no complaints. O: See flow sheet Gen: No apparent distress Abd: Gravid, nontender, S>D ASSESSMENT/PLAN: 1. Supervision of other high risk pregnancies, third trimester - ICD9: V23.89, ICD10: O09.893 (primary diagnosis) - History of labor 2. 30 weeks gestation of - ICD9: V22.2, ICD10: Z3A.30 - Passed GTT 3. AMA (advanced maternal age) multigravida 35+, third trimester - ICD9: 659.63, ICD10: O09.523 - Continue LDA - Growth ultrasound starting at 32 weeks 4. resulting from assisted reproductive technology, antepartum - ICD9: V23.85, ICD10: O09.819 - Transfer of care from Dr. Quinonez at [facility] [employer] and infertility in [place] [facility] [place] echo 5. with history of section, antepartum - ICD9: 654.23, ICD10: O34.219 - Planning repeat c/s and salpingectomy 08/24 PTL precautions reviewed. RTO in 2 weeks or sooner as needed. Dl Deleon APRN.CNP documented in this encounterTr[facility]03-13-2024 Instructions* Patient Instructions* Sita Rivera LPN - 06/23/2023 3:09 PM EDT SEQUENTIAL SCREENINGS The [facility] offers sequential screenings for women who are interested in screenings for chromosomal abnormalities and certain defects during a . The sequential screen combinesultrasound and blood tests to determine the risk of chromosomal abnormalities, including Down's Syndrome (Trisomy 21) and Trisomy 18, as well as open neural tube defects including spina bifida. Ultrasound examination is performed between 11 weeks and 13 weeks gestational age. Blood tests are drawn after the ultrasound and again later in the between 15 and 21 weeks gestational age. Please let your physician know if you are interested in this testing. It will require an appointment withour satellite dish technician. This is not an ultrasound performed by a physician in our office during a routine visit. SIGNS AND SYMPTOMS OF LABOR 1. Contractions every 10 minutes or more often 2. Clear, pink, or brownish fluid (water) leaking from vagina 3. Feeling that baby is pushing down, pressure 4. Low, dull backache 5. Cramps that feel like a period 6. Cramps with or without diarrhea If you notice any of the above symptoms, contact our office at [phone] and ask to speak with anurse. After hours, you can call doctors registry at [phone] OR call [facility] at [phone] ask to have the doctor automobile sales consultant paged. If you consider this an emergency, dial 4-5-9 or go to your nearest emergency department. NEED HELP? Are you dealing with a violent or abusive relationship? Are you a victim of rape or sexual assult? Call [facility] ([place]) 24 hour Crisis Hotline: 740.500.5571 or 791-367-8724. MANUAL Your Guide to a Healthy manual is now on-line. Visit [email or web address] to download your free copy documented in this encounterTrinity [facility]02-14-2024 Miscellaneous Notes* Telephone Encounter - Baylee Conte RN - 05/26/2023 1:14 PM EST Patient notified and voiced understanding of information and instructions below. Baylee Conte RN * Telephone Encounter - Silvia Schwab MD - 05/26/2023 1:07 PM EST Would not be concerned. If has fever keep down with tylenol. Keep hydrated as much as possible. If any regular ctx, bleeding , lof or other concerning ob symptoms notify office. * Telephone Encounter - Susana Rich RN - 05/26/2023 11:42 AM EST 26w1d Patient calling with c/o N/V and diarrhea since yesterday evening. She's been sipping on water. Shewas last able to keep anything down at 4:30 PM yesterday. Encouraged electrolyte drinks in additionto the water. Aware that she should go to ER for IV hydration if she can't keep anything down for 24 hours. Patient feels like she has a low grade fever. Has not checked her temperature. Patient called because she is concerned with her baby's movements. States that the baby has been too active since 9 PM. She's was unable to sleep. Increased activity continues today. Patient asking if she should be concerned. Susana Rich RN documented in this encounterTrinity [facility]12-08-2023 Miscellaneous Notes* Quick Notes - Silvia Schwab MD - 03/19/2023 5:23 PM EST DM- Pt doing well today. Denies Vaginal Bleeding, Leaking fluid, or contractions. Taking ASA. Anatomy us scheduled. Will order AFP next visit. RTO 4 wks.Planning Repeat cs at 39 weeks and salpingectomy. Silvia Raymond MD documented in this encounterTrinity [facility]12-08-2023 Instructions* Patient Instructions* Komal Redman Ma - 03/19/2023 2:59 PM EST SEQUENTIAL SCREENINGS The [facility] offers sequential screenings for women who are interested in screenings for chromosomal abnormalities and certain defects during a . The sequential screen combinesultrasound and blood tests to determine the risk of chromosomal abnormalities, including Down's Syndrome (Trisomy 21) and Trisomy 18, as well as open neural tube defects including spina bifida. Ultrasound examination is performed between 11 weeks and 13 weeks gestational age. Blood tests are drawn after the ultrasound and again later in the between 15 and 21 weeks gestational age. Please let your physician know if you are interested in this testing. It will require an appointment withour satellite dish technician. This is not an ultrasound performed by a physician in our office during a routine visit. SIGNS AND SYMPTOMS OF LABOR 1. Contractions every 10 minutes or more often 2. Clear, pink, or brownish fluid (water) leaking from vagina 3. Feeling that baby is pushing down, pressure 4. Low, dull backache 5. Cramps that feel like a period 6. Cramps with or without diarrhea If you notice any of the above symptoms, contact our office at [phone] and ask to speak with anurse. After hours, you can call doctors registry at [phone] OR call [facility] at [phone] ask to have the doctor automobile sales consultant paged. If you consider this an emergency, dial 9-1-1 or go to your nearest emergency department. NEED HELP? Are you dealing with a violent or abusive relationship? Are you a victim of rape or sexual assult? Call [facility] ([place]) 24 hour Crisis Hotline: 562.557.9813 or 718-805-6628. MANUAL Your Guide to a Healthy manual is now on-line. Visit [email or web address] to download your free copy documented in this encounterTrinity [facility]11-09-2023 Miscellaneous Notes* Quick Notes - Brianna Tapia APRN.CNP - 02/18/2023 12:44 PM EST POCUS + cardiac activity Brianna Tapia APRN.CNP documented in this encounterTrinity [facility]11-09-2023 Instructions* Patient Instructions* Feroz Parr Komal - 02/18/2023 8:02 AM EST Please select the following link to access the [facility] Your Guide to a Healthy . [email or web address] documented in this encounterTrinity Health [facility]11-09-2023 History of Present illness Narrative* Brianna Tapia APRN.CNP - 02/18/2023 8:00 AM EST OB point of care ultrasound was performed. See imaging tab for details. INITIAL OB ASSESSMENT OB Provider: Brianna Tapia APRN.CNP HPI: Arian is a 42 year old White here to establish Obstetrical Care. Patient's last menstrual period was 12/15/2022. from OB Dating Form. Cycles regular was planned Embryo transfer 12/15/22 Complaints: None OB History T1 L3 SAB0 IAB0 Ectopic0 Multiple0 Live Births3 Previous history: Prior : yes x 2 History of 4th degree laceration: No History of shoulder dystocia: No History of Hypertensive disorders including pre-eclampsia, chronic hypertension or gestational hypertension: No History of gestational diabetes: No Patient's Risk Screening for delivery: Have you had a prior sctot between 20w and 36w6d?: (!) Yes Did you present in active spontaneous labor or have ruptured membranes, or advanced cervical dilation (greater than or equal to 4 cm) or effacement?: (!) Yes MEDICAL/PSYCHOSOCIAL HISTORY: History of hemorrhage or bleeding concerns: No Thyroid Disease: No History of chronic hypertension: No History of pre-existing diabetes: No ABO/RH(D) Date Value Ref Range Status 03/10/2019 A POSITIVE Final BMI 26.17 kg/(m^2) History of abnormal pap: Yes Prior treatment for cervical dysplasia: colposcopy History of STDs: None Tobacco use: No Caffeine use: No Drug use: No Alcohol use: No Multivitamin with Folic acid: Yes Sabianism or heritage: No Would refuse blood transfusion if medically necessary: No Are 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 I don't have enough money to pay my bills: Never Within the past 12 months, have you worried that your food would run out before you had money to buy more: Never In the past 12 months, has lack of reliable transportation kept you from going to medical appointments or work, or from keeping things needed for daily living: Never In the past 12 months, have you had any concerns about having a place to live, or about the condition or quality of your housing: Never Are there any cultural or spiritual needs we should be aware of: No Depression/Anxiety Screening: denies symptoms of depression. OB Depression and Anxiety Screening- This Encounter (since 02/17/2023) Over the past 2 weeks have you felt down, depressed, or hopeless? Negative Over the past two weeks, have you felt little interest or pleasure in doing things? Negative Feeling nervous, anxious or on edge 0-Not at all Not being able to stop or control worrying 0-Not al all Anxiety Pre-Screening Total (If >/= 3 additional questions will be reviewed) 0 Genetic Screening: Partner present: No Patient verbalized knowledge of partner family health history: No Do you or your partner have any personal or family history of defects not previously discussed: No Do you have history of a complicated by anomaly, genetic condition, or demise: No ACOG Recommended Screening Screening for early gestational diabetes testing: Criteria for early testing requires elevated BMI plus one other risk factor: BMI 26.17 kg/(m^2) (risk factor if > than 25 or 23 in Americans) Additional risk factors: First-degree relative with diabetes She does not meet ACOG criteria for early gestational DM screening. 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 Gender: Male History of STDs: None PAST MEDICAL HISTORY Diagnosis Date Abnormal Pap smear of cervix Anemia Complication of anesthesia nausea with anesthesia Infertility management Infertility, female Mood disorder (HCC) Post- anxiety depression Social phobia 02/08/2021 PAST SURGICAL HISTORY Procedure Laterality Date DELIVERY ONLY 08/04/2019 C/S low transverse DELIVERY ONLY 09/02/2021 [facility] 01/17/[address] [facility]- bilateral tubes patent HYSTEROSCOPY x2 VAGINOSCOPY 2003 normal paps since then Current Outpatient Medications Medication Sig Dispense Refill sertraline (ZOLOFT) 50 mg tablet take 1 tablet by mouth once daily IN ADDITION TO 25 MG TABLET FOR TOTAL DOSE OF 75 MG 30 tablet 1 sertraline (ZOLOFT) 25 mg tablet take 1 tablet by mouth once daily IN ADDITION TO 50 MG TABLET FOR A TOTAL DOSE OF 75 MG 30 tablet 1 Cetirizine (ZYRTEC) 10 mg cap Take by mouth. diphenhydramine HCl (UNISOM SLEEPGELS ORAL) Take by mouth. ondansetron (ZOFRAN) 4 mg tablet Take 1 tablet by mouth every 8 hours as needed for nausea/vomiting. 30 tablet 1 aspirin 81 mg cap Take by mouth. (Patient not taking: Reported on 09/17/2021 ) clotrimazole-betamethasone (LOTRISONE) cream Apply 1 application to affected area twice daily. (Patient not taking: Reported on 07/25/2021 ) 45 g 1 PNV no.95/ferrous fum/folic ac ( ORAL) Take 1 tablet by mouth once daily. No current facility-administered medications for this visit. Allergies As of Date: 02/18/2023 Allergen Noted Reaction DOXYCYCLINE 12/28/2012 Rash ZITHROMAX [AZITHROMYCIN] 10/20/2016 Swelling Fully Assessed 02/18/2023 Does patient have penicillin allergy: No REVIEW OF SYSTEMS: GENERAL: Negative for: Fever or Chills HEENT: Negative for: Headache, Impaired Vision, Ringing in Ears, Nosebleeds NECK: Negative for: Swelling, Pain, Stiffness RESPIRATORY: Negative for: Cough, Shortness of breath, Wheezing GASTROINTESTINAL: Negative for: Heartburn, Constipation, Diarrhea, Blood in stool, Vomiting. Nauseais getting better MUSCULOSKELETAL: Negative for: Muscle or joint pain, stiffness, Joint swelling NEUROLOGIC/PSYCHIATRIC: Negative for: Weakness, Paralysis, Numbness, Tingling, Tremor, Anxiety, Depression, Memory loss SKIN: Negative for: Rash, Itching GENITOURINARY: Negative for: vaginal itching, vaginal discharge, hematuria or dysuria PHYSICAL EXAM: Wt 134 lb (60.8kg) LMP 12/15/2022 GENERAL: pleasant in no apparent distress DERMATOLOGY: Normal, without lesions, non-icteric, and non-hirsute NECK: Supple, full range of motion, no adenopathy, and thyroid normal CHEST: Normal inspiratory effort BREAST: soft, non-tender, symmetric, no dominant mass, normal nipple-areolar complex, no lymphadenopathy, and no nipple discharge ABDOMEN: soft, non-tender, and no masses NEURO: alert and oriented x3,exam grossly non-focal PELVIS: External genitalia normal without lesions. Perineal body intact. No vaginal or cervical lesions. Cervix closed. Uterus 12 week size. No adnexal masses or tenderness. Clinical Pelvimetry: Pelvimetry clinically assessed as adequate Limited OB ultrasound exam: single intrauterine and positive cardiac activity OB Risk Screening: Completed, positive findings include: Patient will be less than 17 or greater than 34 at the time of Delivery Patient answered 'Yes' they had a prior scott between 20w and 36w6d. ASSESSMENT: 42 year old at 9w2d wks gestational age PLAN: 1) Patient oriented to practice. Patient given new OB orientation folder. Discussed nutrition, folic acid supplementation, dietary guidelines, exercise, smoking, alcohol, caffeine, and drug use. Discussed gestational weight gain guidelines. Discussed routine OB labs including STD/HIV. Discussed how to access Your guide to a health and the Senior Architect/Design Manager. Discussed aneuploidy and carrier screening. Regarding aneuploidy screening, nuchal translucency/first trimester early anatomy ultrasound and NIPT were discussed. Regarding carrier screening, the myriad screen was discussed. The risks/benefits and limitations of NIPT/aneuploidy screening were reviewed including the potential for false negative and false positive results. We discussed the availability of professional-society guided carrier screening and reviewed the conditions screened and limitations of screening. The availability of genetic counseling was reviewed. Information on aneuploidy/carrier screening was provided. The patient chooses: Aneuploidy screening: declines screening and Carrier screening: Declines Discussed hemoglobin electrophoresis. Patient: Declines Patient offered option of Virtual Visits. Patient unsure. May consider in future. 2) History of section: Pt counselled regarding TOLAC versus Repeat Section. Repeat C/S. AMA: genetic testing done on Embryo Follow up in 4 weeks or sooner prn. Brianna Tapia APRN.MATTI documented in this encounterTr[facility]10-26-2023 History of Present illness Narrative* Kristyn Caceres MD - 02/04/2023 1:32 PM EDT Copy And Print Associate offered: Patient declines. Arian Toledo is a 42 year old female who presents for problem visit - bleeding. HPI: Recently had embryo transfer with 1st trimester ultrasound completed with [facility]. Add on today for bleeding and pain overnight. Pain was acute in nature and has resolved. Bleeding was red and into the toilet. Today bleeding has slowed and is brown in color and light. No other complaints today. 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 History LMP: 11/24/2022 (Exact Date), Unknown Age at Menarche: Age at First : Age at Menopause: Stone Finisher History Comments: Sexual Activity: Yes; Male Contraception: None PAST MEDICAL HISTORY Diagnosis Date Abnormal Pap smear of cervix Anemia Complication of anesthesia nausea with anesthesia Infertility management Infertility, female Mood disorder (HCC) Post- anxiety depression Social phobia 02/08/2021 PAST SURGICAL HISTORY Procedure Laterality Date DELIVERY ONLY 08/04/2019 C/S low transverse DELIVERY ONLY 09/02/2021 [facility] TRANSFER [facility]G 01/17/[address] [facility]- bilateral tubes patent HYSTEROSCOPY x2 VAGINOSCOPY 2003 normal paps since then FAMILY HISTORY Problem Relation Age of Onset Hypertension Mother other (reynauds) Mother Neuropathy Mother Autoimmune disease Father Psychiatry Sister Psychiatry Sister Psychiatry Sister Colon Cancer Maternal Grandmother 80 Emphysema Maternal Grandfather Cancer Maternal Grandfather Lung cancer Alzheimer's Disease Paternal Grandfather No Known Problems Daughter Social History Tobacco Use Smoking status: Never Smokeless tobacco: Never Vaping Use Vaping Use: Never used Substance Use Topics Alcohol use: Not Currently Comment: occasional Drug use: No Current Outpatient Medications Medication Sig ondansetron (ZOFRAN) 4 mg tablet Take 1 tablet by mouth every 8 hours as needed for nausea/vomiting. sertraline (ZOLOFT) 50 mg tablet take 1 tablet by mouth once daily IN ADDITION TO 25 MG TABLET FOR TOTAL DOSE OF 75 MG sertraline (ZOLOFT) 25 mg tablet take 1 tablet by mouth once daily IN ADDITION TO 50 MG TABLET FOR A TOTAL DOSE OF 75 MG Cetirizine (ZYRTEC) 10 mg cap Take by mouth. diphenhydramine HCl (UNISOM SLEEPGELS ORAL) Take by mouth. PNV no.95/ferrous fum/folic ac ( ORAL) Take 1 tablet by mouth once daily. aspirin 81 mg cap Take by mouth. (Patient not taking: Reported on 09/17/2021 ) clotrimazole-betamethasone (LOTRISONE) cream Apply 1 application to affected area twice daily. (Patient not taking: Reported on 07/25/2021 ) No current facility-administered medications for this visit. Allergies As of Date: 02/04/2023 Allergen Noted Reaction DOXYCYCLINE 12/28/2012 Rash ZITHROMAX [AZITHROMYCIN] 10/20/2016 Swelling Fully Assessed 02/04/2023 REVIEW OF SYSTEMS Expanded ROS: N/A Allergies and current medication updated:Yes EXAM: BP 92/60 Wt 134 lb 9.6 oz (61.1kg) LMP 11/24/2022 GENERAL: pleasant, female in no apparent distress HEENT: Normocephalic and atraumatic NECK: full range of motion DERMATOLOGY: Normal and without lesions CHEST: Normal inspiratory effort ABDOMEN: soft, non-tender, and no masses PELVIC: external genitalia normal, normal Bartholin's glands, urethra, [place]'s glands, no vulvar lesions, no cervical lesions, good vaginal support, normal appearing perineal body and perianal region, cervix closed and long, scant dark brown blood present in vaginal vault, no active bleeding noted NEURO: exam grossly non-focal EXTREMITIES: normal ASSESSMENT AND PLAN: Encounter Diagnosis ICD-10-CM 1. 10 weeks gestation of Z3A.10 2. Vaginal bleeding during O46.90 3. Pelvic pain during O26.899 R10.2 TAUS showing single live IUP. CRL measuring 10w2d and +FHT. Grossly normal appearing fluid and movements noted. Cervix closed and no active bleeding. A positive blood type. Recommend pelvic rest for now. Keep scheduled follow up. Kristyn Caceres DO Medical Decision Making: Problems: Low: 2+ self-limited or minor problems Risk: Low: Low risk from testing/treatment Medical Decision Making Level: 3 - Low documented in this encounterTrinity [facility]10-18-2023 Miscellaneous Notes* Telephone Encounter - Julee Valente RN - 01/27/2023 8:27 AM EDT New OB appt with Brianna 02/18 documented in this encounterTrinity Health [facility]10-09-2023 Miscellaneous Notes* Telephone Encounter - Brianna Tapia APRN.CNP - 01/18/2023 12:04 PM EDT I don't think there is. Brianna Tapia APRN.MATTI * Telephone Encounter - Sita Cheng LPN - 01/18/2023 9:39 AM EDT Pt called and stated that she had an embryo transfer on 12/15/22. Pt stated that she had an appointment today with [facility] and an ultrasound was done. Pt was needing to establish with our office around 12 weeks gestation. Pt scheduled 02/18/23 at 8am. Pt stated that her embryo's were genetically tested and she will forego the nuchal. Please advise if any further testing needed prior to this appointment.Sita Cheng LPN documented in this encounterTrinity Health [facility] Campus10-02-2023 Miscellaneous Notes* Telephone Encounter - Sita Cheng LPN - 01/11/2023 1:06 PM EDT Pt notified of below suggestions and voiced understanding. Sita Cheng LPN * Telephone Encounter - Kristyn Caceres MD - 01/11/2023 12:34 PM EDT Agree with recommendations and to also contact her [facility] * Telephone Encounter - Susana Rich RN - 01/11/2023 11:54 AM EDT Patient had an embryo transfer with [facility] on 12/15/22. Calling to report that she has been feeling nauseated day and night. Has tried taking Unisom, but not Vitamin B6. Sent a Mychart message with OTC medication and dietary options. Patient has not vomited. Do you have any further recommendations for patient. Susana Rich RN documented in this encounterTrinity Health [facility]09-05-2023 Miscellaneous Notes* Telephone Encounter - Norman Reaves MD - 12/15/2022 2:56 PM EDT It looks like she is taking 75mg daily. If this is incorrect please let me know. Sending the 75mg in to pharmacy. Norman Reaves MD * Telephone Encounter - Sita Cheng LPN - 12/15/2022 2:52 PM EDT Please see pt's mychart message and further advise. Sita Cheng LPN' * Telephone Encounter - Sita Cheng LPN - 12/01/2022 3:08 PM EDT Pt has not viewed mychart message. Voicemail left asking pt to contact the office at her soonest convenience. Sita Cheng LPN * Telephone Encounter - Sita Cheng LPN - 11/30/2022 8:29 AM EDT See pharmacy generated refill request. Pt has not been seen in the office since 09/17/21. . [employer] message sent asking pt to schedule yearly exam. Sita Cheng LPN documented in this encounterTrinity Health [facility]09-05-2023 Miscellaneous Notes* Telephone Encounter - Sita Cheng LPN - 12/15/2022 8:28 AM EDT Pt has not been seen in the office since 09/17/21. [employer] message to pt that she is due for a yearlyexam and mammogram. Please advise. Sita Cheng LPN documented in this encounterTrinity Health [facility] Campus12-14-2022 Miscellaneous Notes* Telephone Encounter - Yvonne Vang RN - 03/25/2022 10:59 AM EST Requested Prescriptions Pending Prescriptions Disp Refills sertraline (ZOLOFT) 50 mg tablet [Pharmacy Med Name: SERTRALINE HCL 50 MG TABLET] 30 tablet 5 Sig: take 1 tablet by mouth once daily IN ADDITION TO 25 MG TABLET FOR TOTAL DOSE OF 75 MG sertraline (ZOLOFT) 25 mg tablet [Pharmacy Med Name: SERTRALINE HCL 25 MG TABLET] 30 tablet 5 Sig: take 1 tablet by mouth once daily IN ADDITION TO 50 MG TABLET FOR A TOTAL DOSE OF 75 MG RX INSTRUCTIONS: Pharmacy initiated this request. No need to notify patient. Yvonne Vang RN documented in this encounterTrinity Health [facility] Campus06-08-2022 History of Present illness Narrative* Silviafito Muñoz MD - 09/17/2021 8:58 AM EDT EARLY VISIT Arian Toledo is a 41 year old here for 2 week visit. Delivery Summary: cs ROS: General: Denies any fever or chills Hypertension Screening: Headache? No. Visual Changes? No Mood: normal Depression: denies symptoms of depression. OB Depression and Anxiety Screening- This Encounter (since 09/16/2021) Over the past 2 weeks have you felt down, depressed, or hopeless? Negative Over the past two weeks, have you felt little interest or pleasure in doing things? Negative Feeling nervous, anxious or on edge 0-Not at all Not being able to stop or control worrying 0-Not al all Anxiety Pre-Screening Total (If >/= 3 additional questions will be reviewed) 0 Feeding: Breast feeding problems: None Bladder: No dysuria, gross hematuria, urinary frequency, urinary urgency, or incontinence Bowel symptoms: Negative for abdominal discomfort, blood in stools or black stools and change in bowel habits Abdomen: She reports no incisional redness, tenderness, erythema Bleeding: light flow Bottom and Perineum: No issues Sleep: no sleep concerns, Lorena since delivery: Not resumed Emotional support: Yes Exercise: N/A Other issues: None PHYSICAL EXAMINATION: BP 100/62 Wt 130 lb (59 kg) LMP 12/05/2020 (Exact Date) Yes BMI 25.39 kg/m General: pleasant,female in no apparent distress, A&O x 3. Skin warm and intact. Breast: Deferred Abdomen: soft, non-tender and no masses /Incision: No incisional redness, swelling, or drainage Pelvic: Deferred Bimanual: Deferred ASSESSMENT AND PLAN: 1. 41 year old status post CS with normal course. 2. Contraception plan: IUD - Mirena. Reinforced 6-week pelvic rest. Encouraged condom usage should patient deviate. 3. Education: resources provided - see MA/RN note 4. IUD referral placed Follow up: Return to Clinic for 6 week visit and as needed Medical Decision Making Silvia Raymond MD documented [facility] encounterTr[facility] History of Present illness Narrative* Yvonne Vang RN - 09/02/2021 1:53 PM EDT Patient delivered via by Dr. Ponce on 09/02/[address] [facility]. See OB history. Yvonne Vang RN documented in this encounterTr[facility]05-20-2022 History and physical note * Silvia Muñoz MD - 08/29/2021 10:40 AM EDT Pre-Op History and Physical HPI: The patient is a 41 year old female presenting for pre-operative visit. She is scheduled for and bilateral salpigectomy , for Repeat elective cs, breech, ama anddesires sterlization on 09/04/21. Procedure discussed along with risks, benefits and complications. Other alternatives discussed for management. Consent form signed? Yes. PAST MEDICAL HISTORY Diagnosis Date Abnormal Pap smear of cervix Anemia Complication of anesthesia nausea with anesthesia Infertility management Infertility, female Mood disorder (HCC) Post- anxiety depression Social phobia 02/08/2021 PAST SURGICAL HISTORY Procedure Laterality Date DELIVERY ONLY 08/04/2019 C/S low transverse EMBRYO TRANSFER [facility]G 01/17/[address] [facility]- bilateral tubes patent HYSTEROSCOPY x2 VAGINOSCOPY 2004 normal paps since then Current Outpatient Medications Medication Sig Dispense Refill Cetirizine (ZYRTEC) 10 mg cap Take by mouth. sertraline (ZOLOFT) 50 mg tablet Take 1 tablet by mouth once daily. In addition to 25mg tablet for a total of 75mg. 30 tablet 5 sertraline (ZOLOFT) 25 mg tablet Take 1 tablet by mouth once daily. In addition to 50mg tablet for a total of 75mg. 30 tablet 5 aspirin 81 mg cap Take by mouth. diphenhydramine HCl (UNISOM SLEEPGELS ORAL) Take by mouth. clotrimazole-betamethasone (LOTRISONE) cream Apply 1 application to affected area twice daily. (Patient not taking: Reported on 07/25/2021 ) 45 g 1 PNV no.95/ferrous fum/folic ac ( ORAL) Take 1 tablet by mouth once daily. No current facility-administered medications for this visit. ALLERGIES: Doxycycline and Zithromax [Azithromycin] PERSONAL HISTORY: Social History Tobacco Use Smoking status: Never Smoker Smokeless tobacco: Never Used Vaping Use Vaping Use: Never used Substance Use Topics Alcohol use: Not Currently Comment: occasional Drug use: No FAMILY HISTORY: FAMILY HISTORY Problem Relation Age of Onset Hypertension Mother other (reynauds) Mother Neuropathy Mother Autoimmune disease Father Psychiatry Sister Psychiatry Sister Psychiatry Sister Colon Cancer Maternal Grandmother 80 Emphysema Maternal Grandfather Cancer Maternal Grandfather Lung cancer Alzheimer's Disease Paternal Grandfather No Known Problems Daughter REVIEW OF SYMPTOMS: negative except as noted above PHYSICAL EXAMINATION: VITALS: Blood pressure 119/73, weight 148 lb (67.1 kg), last menstrual period 12/05/2020, currentlybreastfeeding. GENERAL: The patient is well nourished, well hydrated in no acute distress. , The patient is oriented to time, place, and person. NECK: full range of motion ABD: gravid, non tender. FHR 140 IMPRESSION: @ 39 weeks- AMA, IVF , Previous Cs and Breech, desires sterilization PLAN: R/CS and Bilateral salpingectomy Pt has been counseled on risks/benefits and alternatives of surgery including but not limited to anesthesia, bleeding, infection, injury to pelvic structures including bowel, bladder, ureters and vessels. Pt wishes to proceed with surgery at this time. PPH reviewed- need for blood products reviewed Covid testing. Pre and post op instructions reviewed. I have reviewed and updated past medical and surgical history, medications and allergies Silvia Muñoz MD documented in this encounterTr[facility]05-20-2022 History of Present illness Narrative* Silvia Muñoz MD - 08/29/2021 10:40 AM EDT NST SUMMARY PROVIDER ASSESSMENT AND INTERPRETATION Arian Toledo is a 41 year old female, , who is at 38w1d with an ANTONIO of 09/11/2021, by Day 5 Embryo Transfer dating method. Indications for NST: AMA Baseline: 140 Variability: Moderate Accelerations: Present 15 X 15 Decelerations: None Contractions: TOCO: occasional Interpretation: Category I and Reactive SIGNATURE: Silvia Raymond MD documented in this encounterTr[facility]05-20-2022 Miscellaneous Notes* Quick Notes - Silvia Muñoz MD - 08/29/2021 10:38 AM EDT DM- Pt doing well today. Denies Vaginal Bleeding, Leaking fluid, or contractions. Pt reports good movement. CS scheduled with salpingectomy. Pre op today. NST today. Kick counts and labor reviewed. RTO prn. Silvia Raymond MD documented in this encounterTr[facility]05-20-2022 Instructions* Patient Instructions* Komal Redman Ma - 08/29/2021 9:56 AM EDT SEQUENTIAL SCREENINGS The [facility] offers sequential screenings for women who are interested in screenings for chromosomal abnormalities and certain defects during a . The sequential screen combinesultrasound and blood tests to determine the risk of chromosomal abnormalities, including Down's Syndrome (Trisomy 21) and Trisomy 18, as well as open neural tube defects including spina bifida. Ultrasound examination is performed between 11 weeks and 13 weeks gestational age. Blood tests are drawn after the ultrasound and again later in the between 15 and 21 weeks gestational age. Please let your physician know if you are interested in this testing. It will require an appointment withour satellite dish technician. This is not an ultrasound performed by a physician in our office during a routine visit. SIGNS AND SYMPTOMS OF LABOR 1. Contractions every 10 minutes or more often 2. Clear, pink, or brownish fluid (water) leaking from vagina 3. Feeling that baby is pushing down, pressure 4. Low, dull backache 5. Cramps that feel like a period 6. Cramps with or without diarrhea If you notice any of the above symptoms, contact our office at [phone] and ask to speak with anurse. After hours, you can call doctors registry at [phone] OR call [facility] at [phone] ask to have the doctor automobile sales consultant paged. If you consider this an emergency, dial 91-9 or go to your nearest emergency department. NEED HELP? Are you dealing with a violent or abusive relationship? Are you a victim of rape or sexual assult? Call [facility] ([place]) 24 hour Crisis Hotline: 247.926.6824 or 272-776-1396. MANUAL Your Guide to a Healthy manual is now on-line. Visit [email or web address] to download your free copy documented in this encounterTrinity [facility]05-16-2022 Miscellaneous Notes* Quick Notes - Nayeli Miranda APRN.CNM - 08/25/2021 3:07 PM EDT CP-Arian Toledo is a 41 year old female who presents at 37w4d as an add on visit for contractions. She stated she has been feeling contractions every 8-10 minutes throughout entire day. Contractions not painful. Denies loss of fluid or vaginal bleeding. Positive movement. Feels like baby has dropped. Stopped Warner injections last week. TAUS- confirms breech position CE- /-2 ASSESSMENT/PLAN: 1. AMA (advanced maternal age) multigravida 35+, third trimester - ICD9: 659.63, ICD10: O09.523 (primary diagnosis) 2. 37 weeks gestation of - ICD9: V22.2, ICD10: Z3A.37 3. Uterine contractions - ICD9: 644.10, ICD10: O47.9 - Increase fluid intake 4. Breech presentation, single or unspecified fetus - ICD9: 652.20, ICD10: O32.1XX0 - Scheduled RLTCS on 09/04/21 with DM PTL precautions and kick counts reviewed RTO- later this week for TRACIE or sooner if needed Nayeli Miranda APRN.CNM documented in this encounterTrinity [facility]05-16-2022 Instructions* Patient Instructions* Patty Lemons Ma - 08/25/2021 2:44 PM EDT SEQUENTIAL SCREENINGS The [facility] offers sequential screenings for women who are interested in screenings for chromosomal abnormalities and certain defects during a . The sequential screen combinesultrasound and blood tests to determine the risk of chromosomal abnormalities, including Down's Syndrome (Trisomy 21) and Trisomy 18, as well as open neural tube defects including spina bifida. Ultrasound examination is performed between 11 weeks and 13 weeks gestational age. Blood tests are drawn after the ultrasound and again later in the between 15 and 21 weeks gestational age. Please let your physician know if you are interested in this testing. It will require an appointment withour satellite dish technician. This is not an ultrasound performed by a physician in our office during a routine visit. SIGNS AND SYMPTOMS OF LABOR 1. Contractions every 10 minutes or more often 2. Clear, pink, or brownish fluid (water) leaking from vagina 3. Feeling that baby is pushing down, pressure 4. Low, dull backache 5. Cramps that feel like a period 6. Cramps with or without diarrhea If you notice any of the above symptoms, contact our office at [phone] and ask to speak with anurse. After hours, you can call [facility] at [phone] OR call [facility] at [phone] ask to have the doctor automobile sales consultant paged. If you consider this an emergency, dial 9-4-5 or go to your nearest emergency department. NEED HELP? Are you dealing with a violent or abusive relationship? Are you a victim of rape or sexual assult? Call [facility] ([facility] 24 hour Crisis Hotline: 885.695.7781 or 828-192-7978. MANUAL Your Guide to a Healthy manual is now on-line. Visit [email or web address] to download your free copy documented in this encounterTrinity [facility]05-16-2022 Miscellaneous Notes* Telephone Encounter - Nayeli Miranda APRN.CNM - 08/25/2021 1:12 PM EDT Thank You for the update. Nayeli Miranda APRN.CNM * Telephone Encounter - Yvonne Vang RN - 08/25/2021 11:57 AM EDT 37w4d Calling c/o contractions that started 4-5 hours ago. At first she didn't time them, but now for thelast couple hours were around every 10 minutes. No bleeding or leaking fluid. 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 Scheduled for 2:45today, but told patient if she is able to come in sooner or contractions get stronger or closer to call for sooner appointment. Patient agreed. Patient was also breech at last appt. NICOLE Vnag RN documented in this encounterTrinity [facility]05-13-2022 History of Present illness Narrative* Silvia Muñoz MD - 08/22/2021 3:55 PM EDT NST SUMMARY PROVIDER ASSESSMENT AND INTERPRETATION Arian Toledo is a 41 year old female, , who is at 37w1d with an ANTONIO of 09/11/2021, by Day 5 Embryo Transfer dating method. Indications for NST: AMA Baseline: 145 Variability: Moderate Accelerations: Present 15 X 15 Decelerations: None Contractions: TOCO: None Interpretation: Category I and Reactive SIGNATURE: Silvia Raymond MD documented in this encounterTrinity [facility]05-13-2022 Miscellaneous Notes* Quick Notes - Silvia Muñoz MD - 08/22/2021 3:53 PM EDT DM- Pt doing well today. Denies Vaginal Bleeding, Leaking fluid, or contractions. Pt reports good movement. NST today. RTO 1 week. CS scheduled for Breech, h/o previous cs. Kick counts and labor reviewed. Silvia Raymond MD documented in this encounterTrinity [facility]05-13-2022 Instructions* Patient Instructions* Komal Feroz Parr - 08/22/2021 3:12 PM EDT SEQUENTIAL SCREENINGS The [facility] offers sequential screenings for women who are interested in screenings for chromosomal abnormalities and certain defects during a . The sequential screen combinesultrasound and blood tests to determine the risk of chromosomal abnormalities, including Down's Syndrome (Trisomy 21) and Trisomy 18, as well as open neural tube defects including spina bifida. Ultrasound examination is performed between 11 weeks and 13 weeks gestational age. Blood tests are drawn after the ultrasound and again later in the between 15 and 21 weeks gestational age. Please let your physician know if you are interested in this testing. It will require an appointment withour satellite dish technician. This is not an ultrasound performed by a physician in our office during a routine visit. SIGNS AND SYMPTOMS OF LABOR 1. Contractions every 10 minutes or more often 2. Clear, pink, or brownish fluid (water) leaking from vagina 3. Feeling that baby is pushing down, pressure 4. Low, dull backache 5. Cramps that feel like a period 6. Cramps with or without diarrhea If you notice any of the above symptoms, contact our office at [phone] and ask to speak with anurse. After hours, you can call doctors registry at [phone] OR call [facility] at [phone] ask to have the doctor automobile sales consultant paged. If you consider this an emergency, dial 9-1-1 or go to your nearest emergency department. NEED HELP? Are you dealing with a violent or abusive relationship? Are you a victim of rape or sexual assult? Call [facility] ([place]) 24 hour Crisis Hotline: 592.291.8259 or 710-583-7265. MANUAL Your Guide to a Healthy manual is now on-line. Visit [email or web address] to download your free copy documented in this encounterTrinity [facility]05-09-2022 Miscellaneous Notes* Telephone Encounter - Baylee Conte RN - 08/18/2021 10:28 AM EDT Called patient and OB and NST appointment scheduled for this week. Baylee Conte RN * Telephone Encounter - Baylee Conte RN - 08/14/2021 4:23 PM EDT Attempted to contact patient but no answer and unable to leave a message as voicemail box is full. Patient needs appointment for OB and NST next week. Will add NST to pre op appointment on 08/29. Will attempt to call patient back again later. RigUpt message sent. Baylee Conte RN * Telephone Encounter - Baylee Conte RN - 08/14/2021 4:23 PM EDT Images from the original note were not included. Silvia Muñoz MD P tr Ob-[employer] Please call patient- I forgot to tell her that she will need weekly NSTs until delivery due to AMA documented in this encounterTrinity [facility]05-05-2022 History of Present illness Narrative* Silvia Muñoz MD - 08/14/2021 4:08 PM EDT NST SUMMARY PROVIDER ASSESSMENT AND INTERPRETATION Arian Toledo is a 41 year old female, , who is at 36w0d with an ANTONIO of 09/11/2021, by Day 5 Embryo Transfer dating method. Indications for NST: AMA Baseline: 140 Variability: Moderate Accelerations: Present 15 X 15 Decelerations: None Contractions: TOCO: Irregular Interpretation: Category I and Reactive SIGNATURE: Silvia Raymond MD documented in this encounterTrinity Health [facility]05-05-2022 Miscellaneous Notes* Quick Notes - Silvia Muñoz MD - 08/14/2021 4:06 PM EDT DM- Pt doing well today. Denies Vaginal Bleeding, Leaking fluid, or contractions. Pt reports good movement. Breech on ultrasound today. NSTs weekly until delivery. RTO 1 week. Labor and kick counts reviewed.Offered ECV, declines. CS scheduled 39 weeks. GBS today Silvia Raymond MD documented in this encounterTrinity [facility]05-05-2022 Instructions* Patient Instructions* Komal Redman Ma - 08/14/2021 3:15 PM EDT SEQUENTIAL SCREENINGS The [facility] offers sequential screenings for women who are interested in screenings for chromosomal abnormalities and certain defects during a . The sequential screen combinesultrasound and blood tests to determine the risk of chromosomal abnormalities, including Down's Syndrome (Trisomy 21) and Trisomy 18, as well as open neural tube defects including spina bifida. Ultrasound examination is performed between 11 weeks and 13 weeks gestational age. Blood tests are drawn after the ultrasound and again later in the between 15 and 21 weeks gestational age. Please let your physician know if you are interested in this testing. It will require an appointment withour satellite dish technician. This is not an ultrasound performed by a physician in our office during a routine visit. SIGNS AND SYMPTOMS OF LABOR 1. Contractions every 10 minutes or more often 2. Clear, pink, or brownish fluid (water) leaking from vagina 3. Feeling that baby is pushing down, pressure 4. Low, dull backache 5. Cramps that feel like a period 6. Cramps with or without diarrhea If you notice any of the above symptoms, contact our office at [phone] and ask to speak with anurse. After hours, you can call doctors registry at [phone] OR call [facility] at [phone] ask to have the doctor automobile sales consultant paged. If you consider this an emergency, dial -- or go to your nearest emergency department. NEED HELP? Are you dealing with a violent or abusive relationship? Are you a victim of rape or sexual assult? Call [facility] ([place]) 24 hour Crisis Hotline: 309.946.8454 or 368-562-9753. MANUAL Your Guide to a Healthy manual is now on-line. Visit [email or web address] to download your free copy documented in this encounterTrinity [facility]04-22-2022 Miscellaneous Notes* Quick Notes - Nayeli Miranda APRN.CNM - 08/01/2021 4:14 PM EDT Arian Toledo is a 41 year old female who presents at 34w1d for a routine visit. Good movement. Denies and cramping or contractions. Continues to get Anabel injections. Has never carried past 35 weeks. Denies headache, visual changes, chest pain, shortness of breath, vaginal bleeding, leakage of fluid, or dysuria. Feeling well, no complaints. 20 lbs TWG. Breech today on exam. Handout provided. Briefly discussed ECV process. Desires TOLAC. PTL precautions reviewed. RTC in 2 weeks or sooner if needed. Nayeli Miranda APRN.CNM documented in this encounterTrinity Health [facility]04-22-2022 Instructions* Patient Instructions* Patty Lemons Ma - 08/01/2021 3:45 PM EDT [employer] SEQUENTIAL SCREENINGS The [facility] offers sequential screenings for women who are interested in screenings for chromosomal abnormalities and certain defects during a . The sequential screen combinesultrasound and blood tests to determine the risk of chromosomal abnormalities, including Down's Syndrome (Trisomy 21) and Trisomy 18, as well as open neural tube defects including spina bifida. Ultrasound examination is performed between 11 weeks and 13 weeks gestational age. Blood tests are drawn after the ultrasound and again later in the between 15 and 21 weeks gestational age. Please let your physician know if you are interested in this testing. It will require an appointment withour satellite dish technician. This is not an ultrasound performed by a physician in our office during a routine visit. SIGNS AND SYMPTOMS OF LABOR 1. Contractions every 10 minutes or more often 2. Clear, pink, or brownish fluid (water) leaking from vagina 3. Feeling that baby is pushing down, pressure 4. Low, dull backache 5. Cramps that feel like a period 6. Cramps with or without diarrhea If you notice any of the above symptoms, contact our office at [phone] and ask to speak with anurse. After hours, you can call doctors registry at [phone] OR call [facility] at [phone] ask to have the doctor automobile sales consultant paged. If you consider this an emergency, dial 4-1-6 or go to your nearest emergency department. NEED HELP? Are you dealing with a violent or abusive relationship? Are you a victim of rape or sexual assult? Call [facility] ([place]) 24 hour Crisis Hotline: 368.158.5959 or 619-405-9886. MANUAL Your Guide to a Healthy manual is now on-line. Visit [email or web address] to download your free copy documented in this encounterTrinity Health [facility]04-15-2022 History of Present illness Narrative* Shaun Maciel MD - 07/25/2021 10:38 AM EDT Patient presents with: Cough: x4 mths, reported increased SOB, intermittent chest pain Fever: Travel to [place], 33 wks , reported good FM HPI: Coughing for 3 1/2 months (since New Years). Had antibiotic treatment in May or June for sinus infection. Currently 33 weeks . Started having sharp and tight chest pains and worse cough after flying to [place] 6 days ago - still hurts to cough or take a deep breath. Her daughter who went to [place] has a similar cough. Positive symptoms: Cough, Shortness of breath, Chest tightness, Chest pain, temp 100 yesterday, poor appetite, vomited last week from bad heartburn, abdomen hurts to cough, Negative symptoms: Nasal Congestion, Rhinorrhea, OTC: Mucinex helps, Tylenol, zyrtec 2nd dose of [employer] COVID-19 vaccine in June 2020. Has had COVID illness twice, most recently [place] when symptoms began. No Hx of asthma, PHx of spring/fall allergies. PAST MEDICAL HISTORY Diagnosis Date Abnormal Pap smear of cervix Anemia Complication of anesthesia nausea with anesthesia Infertility management Infertility, female Mood disorder (HCC) Post- anxiety depression Social phobia 02/08/2021 MEDICATIONS: Current Outpatient Medications Medication Sig Cetirizine (ZYRTEC) 10 mg cap Take by mouth. sertraline (ZOLOFT) 50 mg tablet Take 1 tablet by mouth once daily. In addition to 25mg tablet for a total of 75mg. sertraline (ZOLOFT) 25 mg tablet Take 1 tablet by mouth once daily. In addition to 50mg tablet for a total of 75mg. aspirin 81 mg cap Take by mouth. diphenhydramine HCl (UNISOM SLEEPGELS ORAL) Take by mouth. PNV no.95/ferrous fum/folic ac ( ORAL) Take 1 tablet by mouth once daily. clotrimazole-betamethasone (LOTRISONE) cream Apply 1 application to affected area twice daily. (Patient not taking: Reported on 07/25/2021 ) No current facility-administered medications for this visit. ALLERGIES: ALLERGIES Allergen Reactions Doxycycline Rash Zithromax [Azithrom* Swelling VITALS: BP 90/58 Pulse 109 Temp 36.4 C (97.6 F) Resp 22 Wt 66.7 kg (147 lb) LMP 12/05/2020 (ExactDate) SpO2 99% BMI 28.71 kg/m PHYSICAL EXAM: GEN: Pleasant, in no acute distress. HEENT: PERRL, EOMI, conjunctiva clear Ears: canals clear. TMs without erythema, bulge, or effusion Sinuses: non-tender frontal sinus, non-tender maxillary sinuses Throat: moist mucous membranes, no erythema, no exudate Neck: supple, no thyromegaly, no lymphadenopathy HEART: regular rate and rhythm, no murmurs LUNGS: clear to auscultation, no wheezes or crackles, no increased WOB ABD: Gravid ASSESSMENT/PLAN: 1. Cough - ICD9: 786.2, ICD10: R05.9 (primary diagnosis) 2. Chest pain, unspecified type - ICD9: 786.50, ICD10: R07.9 Lingering cough with 1 week exacerbation. Differential includes new acute URI, environmental allergies, pneumonia, and pulmonary embolism. Case discussed with TABLE CUT OFF SAW OPERATOR automobile sales consultant Kristyn Nicki. Since PE is a concern with risk factors she shouldgo to the ER for rule out. ER passport sent and [facility] ER report called. Shaun Maciel MD documented in this encounterTrinity Health [facility]04-05-2022 Miscellaneous Notes* Quick Notes - Silvia Muñoz MD - 07/15/2021 2:57 PM EDT DM- Pt doing well today. Denies Vaginal Bleeding, Leaking fluid, or contractions. Pt reports good movement. Has chronic cough x 3 months that wakes her up at night. Will try allergy pills. If no improvement consider chest xray. Growth us rescheduled this week. Kick counts and labor reviewed. RTO 2 wks. Continue ASA and Warner injections. Breech today on exam. Silvia Raymond MD [facility] Instructions* Patient Instructions* Komal Redman Ma - 07/15/2021 2:36 PM EDT SEQUENTIAL SCREENINGS [facility] offers sequential screenings for women who are interested in screenings for chromosomal abnormalities and certain defects during a . The sequential screen combinesultrasound and blood tests to determine the risk of chromosomal abnormalities, including Down's Syndrome (Trisomy 21) and Trisomy 18, as well as open neural tube defects including spina bifida. Ultrasound examination is performed between 11 weeks and 13 weeks gestational age. Blood tests are drawn after the ultrasound and again later in the between 15 and 21 weeks gestational age. Please let your physician know if you are interested in this testing. It will require an appointment withour satellite dish technician. This is not an ultrasound performed by a physician in our office during a routine visit. SIGNS AND SYMPTOMS OF LABOR 1. Contractions every 10 minutes or more often 2. Clear, pink, or brownish fluid (water) leaking from vagina 3. Feeling that baby is pushing down, pressure 4. Low, dull backache 5. Cramps that feel like a period 6. Cramps with or without diarrhea If you notice any of the above symptoms, contact our office at [phone] and ask to speak with anurse. After hours, you can call doctors registry at [phone] OR call [facility] at [phone] ask to have the doctor automobile sales consultant paged. If you consider this an emergency, dial [phone] or go to your nearest emergency department. NEED HELP? Are you dealing with a violent or abusive relationship? Are you a victim of rape or sexual assult? Call [facility] ([place]) 24 hour Crisis Hotline: 923.736.4737 or 095-281-8339. MANUAL Your Guide to a Healthy manual is now on-line. Visit [email or web address] to download your free copy documented [facility]* Diagnosis Antepartum multigravida of advanced maternal age- Primary resulting from assisted reproductive technology, antepartum History of delivery with history of section, antepartum 31 weeks gestation of state, incidental [facility] encounter [facility]* Diagnosis Cough- Primary Chest pain, unspecified type documented in this encounter [facility] noteNo assessment information availableWMercer [facility] Work Phone: Evaluation note* Diagnosis Antepartum multigravida of advanced maternal age- Primary 34 weeks gestation of state, incidental documented in this encounter [facility] note* Diagnosis Multigravida of advanced maternal age in third trimester- Primary with history of section, antepartum History of delivery 36 weeks gestation of state, incidental documented in this encounter [facility] note* Diagnosis AMA (advanced maternal age) multigravida 35+, third trimester- Primary with history of section, antepartum resulting from assisted reproductive technology, antepartum 37 weeks gestation of state, incidental documented in this encounter [facility] note* Diagnosis AMA (advanced maternal age) multigravida 35+, third trimester- Primary 37 weeks gestation of state, incidental Uterine contractions Breech presentation, single or unspecified fetus documented in this encounter [facility] note* Diagnosis AMA (advanced maternal age) multigravida 35+, third trimester- Primary resulting from assisted reproductive technology, antepartum with history of section, antepartum 38 weeks gestation of state, incidental documented in this encounter [facility] note* Diagnosis Onset Date Resolution Status 38 weeks gestation of acute Active labor at term acute Advanced maternal age (AMA), 40 years or greater acute Breech presentation acute Delivery by section acute High risk multigravida in third trimester acute Previous delivery affecting acute Acute on chronic blood loss anemia [facility] Work Phone: [place] [facility]* Diagnosis care and examination immediately after delivery- Primary Encounter for initial prescription of intrauterine contraceptive device (IUD) documented in this encounter [facility] note* Diagnosis Encounter for screening mammogram for malignant neoplasm of breast- Primary Other screening mammogram documented in this encounter [facility] note* Diagnosis 10 weeks gestation of - Primary state, incidental Vaginal bleeding during Pelvic pain during documented in this encounter [facility] note* Diagnosis with uncertain dates in first trimester- Primary Encounter for anatomic survey 12 weeks gestation of state, incidental Antepartum multigravida of advanced maternal age resulting from assisted reproductive technology, antepartum documented in this encounter [facility] note* Diagnosis with uncertain dates in first trimester- Primary documented in this encounter [facility] note* Diagnosis Antepartum multigravida of advanced maternal age- Primary History of delivery resulting from assisted reproductive technology, antepartum 16 weeks gestation of state, incidental documented in this encounter [facility] note* Diagnosis Supervision of other high risk pregnancies, third trimester- Primary 30 weeks gestation of state, incidental AMA (advanced maternal age) multigravida 35+, third trimester resulting from assisted reproductive technology, antepartum with history of section, antepartum [facility]* Diagnosis AMA (advanced maternal age) multigravida 35+, third trimester- Primary with history of section, antepartum Supervision of other high risk pregnancies, third trimester resulting from assisted reproductive technology, antepartum History of delivery 34 weeks gestation of state, incidental documented in this encounter [facility] note* Diagnosis Onset Date Resolution Status 36 weeks gestation of acute AMA (advanced maternal age) multigravida 35+ acute Previous delivery, antepartum acute Vaginal bleeding during acute [facility] Work Phone: Evaluation note* Diagnosis Supervision of other high risk pregnancies, third trimester- Primary 36 weeks gestation of state, incidental AMA (advanced maternal age) multigravida 35+, third trimester with history of section, antepartum Antepartum multigravida of advanced maternal age History of delivery documented in this encounter [facility] note* Diagnosis Supervision of other high risk pregnancies, third trimester- Primary AMA (advanced maternal age) multigravida 35+, third trimester 37 weeks gestation of state, incidental with history of section, antepartum documented in this encounter [facility] note* Diagnosis Antepartum multigravida of advanced maternal age- Primary documented in this encounter [facility] note* Diagnosis Onset Date Resolution Status 36 weeks gestation of acute AMA (advanced maternal age) multigravida 35+ acute Previous delivery, antepartum acute Vaginal bleeding during acute Active labor acute Acute blood loss anemia acut e AMA (advanced maternal age) multigravida 35+ acute delivery delivered acute LLQ pain acute Non-reassuring heart r ate or rhythm affecting management of fetus acute Previous delivery, antepartum acute 38 weeks gestation of resolved Active labor at term resolve d Advanced maternal age (AMA), 40 years or greater resolved Previous delivery affecting resolved [facility] Work Phone: Hospital Discharge instructions Additional Instructions Date of Discharge: 08/20/23[facility] Work Phone: Progress note Author Nayeli Miranda [facility] August 04, 2023 7:04pm Note Date/Time August 04, 2023 7:0 4pm [facility] Medical Records Department [address] [place] [address] Progress Note - OBGYN 08/04/23 1859 MR#: [id number] Acct: [id number] Name: ARIAN TOLEDO Rep #:[id number] : 1980 43 From: Nayeli Miranda CNM PCP: Dr. Elena Hawkins MD Status:REG [facility] Location: [place] [address] Subjective Subjective Patient in triage for extended monitoring for vaginal bleeding. Patient seen at bedside. Denies any abdominal pain or regular contractions. Positive movement. Objective Data Objective Data Vital Signs: Vital Signs Temp Pulse Resp BP Pulse Ox 97.8 F 91 16 119/68 99 08/04/23 15:05 08/04/23 15:05 08/04/23 15:05 08/04/23 15:05 08/04/23 15:05 Weight: 152 lb 5.431 oz Body Mass Index (BMI) 29.7 Lab / Micro Data 08/04/23 15:25 Labs: Laboratory Results - last 24 hr 08/04/23 15:25: WBC 8.2, RBC 3.83 L, Hgb 11.0 L, Hct 32.9 L, MCV 85.9, MCH 28.7,MCHC 33.4, RDW Std Deviation 40.0, RDW Coeff of Phill 12.9, Plt Count 331, MPV 10.1, Immature Gran % (Auto) 0.200, Neut % (Auto) 68.6, Lymph % (Auto) 21.2, [place] % (Auto) 8.7, Eos % (Auto) 1.1, Baso % (Auto) 0.2, Absolute Neuts (auto) 5.6, Absolute Lymphs (auto) 1.73, Nucleated RBC % 0, PT 13.3, INR 1.0, APTT 25.5, Fibrinogen 530 H, Syphilis Total Ab Non-reactive, Blood Type A POSITIVE, Antibody Screen NEGATIVE NST FHR Rate Baby A Baseline: 135 Variability:: Moderate Accelerations:: 15 x 15 Decelerations:: None NST Reactive:: Yes Uterine Activity:: Irritability Assessment & Plan (1) Vaginal bleeding during : (2) 36 weeks gestation of : (3) Previous delivery, antepartum: (4) AMA (advanced maternal age) multigravida 35+: PLAN: Plan Was requested to complete CE on patient by nursing CE FT/ high Small amount of dark red, mucus blood on glove after exam Reported assessment to Dr. Ponce Will continue to monitor- patient will stay overnight as observation 08/04/231903 <Electronically signed by Nayeli Miranda CNM> Cosigner Signature (if applicable): CC: ~ Signed [facility] Work Phone: Reason for referral (narrative)* Outpatient Procedure (Routine) - Pending Review Specialty Diagnoses / Procedures Referred By Ronaldo stone Referred To Contact [facility] Diagnoses Multigravida of advanced maternal age in third trimester Procedures NON-STRESS TEST NON-STRESS TEST Silvia Schwab MD [address] [place] [address] [facility] [address] [place] [address] Referral ID Status Reason Start Date Expiration Date Visits Requested Visits Authorized [id number] Pending Review Auto-Generat ed Referral 08/14/2021 08/14/2022 1 1 [facility] (narrative[facility] Outpatient Procedure (Routine) - Pending Review Specialty Diagnoses / Procedures Referred By Ronaldo stone Referred To Contact [facility] Diagnoses Encounter for initial prescription of intrauterine contraceptive device (IUD) Procedures INSERT INTRAUTERINE DEVICE LEVONORGESTREL IU 52MG 5 YR INSERT INTRAUTERINE DEVICE Silvia Schwab MD [address] [place] [address] [facility] [address] [place] [address] Referral ID Status Reason Start Date Expiration Date Visits Requested Visits Authorized [id number] Pending Review Auto-Generat ed Referral 09/17/2021 09/17/2022 1 [facility] (n[facility]ative)* Diagnostic Procedure Only (Routine) - Pending Review Specialty Diagnoses / Procedures Referred By Contac t Referred To Contact [facility] Diagnoses Encounter for screening mammogram for malignant neoplasm of breast Procedures RASHEED SCREENING SCREENING MAMMOGRAPHY BI 2-VIEW BREAST INC Elena Gunn APRN.WATER TREATMENT PLANT OPERATOR [address] [address] [facility] [address] [place] [address] Referral ID Status Reason Start Date Expiration Date Visits Requested Visits Authorized [id number] Pending Review Auto-Generat ed Referral 12/09/2022 12/30/[address] [facility] Diagnostic Procedure Only (Routine) - Authorized Specialty Diagnoses / Procedures Referred By Contac t Referred To Contact [facility] Diagnoses Encounter for anatomic survey Procedures OBSTETRIC ULTRASOUND WHI US PREG UTERUS AFTER 1ST TRIMEST GESTATION Brianna Tapia APRN.WATER TREATMENT PLANT OPERATOR [address] [place] [address] [facility] [address] [place] [address] Referral ID Status Reason Start Date Expiration Date Visits Requested Visits Authorized [id number] Authorized Auto-Generat ed Referral 02/18/2023 02/18/2024 1 1 [facility] Outpatient Procedure (Routine) - Authorized Specialty Diagnoses / Procedures Referred By Contac t Referred To Contact [facility] Diagnoses AMA (advanced maternal age) multigravida 35+, third trimester Procedures NON-STRESS TEST NON-STRESS TEST Silvia Schwab MD [address] [place] [address] [facility] [address] [place] [address] Referral ID Status Reason Start Date Expiration Date Visits Requested Visits Authorized [id number] Authorized Auto-Generat ed Referral 07/20/2023 07/19/2024 4 1 [facility])* Outpatient Procedure (Routine) - Pending Review Specialty Diagnoses / Procedures Referred By Contac t Referred To Contact [facility] Diagnoses Antepartum multigravida of advanced maternal age Procedures NON-STRESS TEST NON-STRESS TEST Esha Hatch APRN.CNM [address] [place] [address] [facility] [address] [place] [address] Referral ID Status Reason Start Date Expiration Date Visits Requested Visits Authorized [id number] Pending Review Auto-Generat ed Referral 08/16/2023 08/15/2024 1 1 [facility] Summary Purpose Family History No Family History Records FoundNo Family History Records FoundNo Family History Records FoundNo Family History Records FoundNo Family History Records Found Advance Directives No Advanced Directives Records Found Advance Directive Response Recorded Date/ Time Living Will No July 25, 2021 1:37pm Power of Printer Slotter Operator No July 25 1:37pm Advance Directive Response Recorded Date/ Time Living Will No September 02, 2021 4 :03am Power of Printer Slotter Operator No September 02, 2021 4:03am Advance Directive Response Recorded Date/ Time Living Will No August 17, 2023 2: 31am Power of Printer Slotter Operator No August 17, 2023 2:31am Chief Complaint and Reason for Visit Chief Complaint SOB, COUGH Chief Complaint SOB, COUGH REPEAT C SECTION Reason for Visit 38 weeks gestation o f Active labor at term Advanced maternal age (AMA), 40 years or greater Breech presentation Delivery by section High risk multigravida in third trimester Previous delivery affecting Acute on chronic blood loss anemia Chief Complaint BETA HCG,BETA SUBUNIT,QNT Chief Complaint RULE OUT Reason for Visit 36 weeks gestation o f AMA (advanced maternal age) multigravida 35+ Previous delivery, antepartum Vaginal bleeding during Chief Complaint RULE OUT REPEAT C SECTION Reason for Visit 36 weeks gestation o f AMA (advanced maternal age) multigravida 35+ Previous delivery, antepartum Vaginal bleeding during Active labor Acute blood loss anemia AMA (advanced maternal age) multigravida 35+ delivery delivered LLQ pain Non-reassuring heart rate or rhythm affecting management of fetus Previous delivery, antepartum 38 weeks gestation of Active labor at term Advanced maternal age (AMA), 40 years or greater Previous delivery affecting Health Concerns Problem Noted Date Diagnosed Date [facility] 02/18/2023 [place] 02/18/2023 Problem Noted Date Diagnosed Date [facility] - [facility] 02/18/2023 [place] 02/18/2023 Problem Noted Date Diagnosed Date [facility] - [facility] 02/18/2023 [place] 02/18/2023 Problem Noted Date Diagnosed Date [facility] - [facility] 02/18/2023 [place] - [place] 02/18/2023 Active Problems Noted Date Diagnosed Date [facility] - [facility] 02/18/2023 [place] - [place] 02/18/2023 Active Problems Noted Date Diagnosed Date [facility] - [facility] 02/18/2023 [place] - [place] 02/18/2023 Active Problems Noted Date Diagnosed Date [facility] - [facility] 02/18/2023 [place] 02/18/2023 Additional Source Comments INFORMATION SOURCE (unrecogn ized section and content) DATE CREATED AUTHOR 07/09/2018 [facility] DATE CREATED AUTHOR AUTHOR'S ORGANIZ ATION 07/10/2020 [facility] DATE CREATED AUTHOR AUTHOR'S ORGANIZ ATION 07/17/2020 [facility] DATE CREATED AUTHOR AUTHOR'S ORGANIZ ATION 11/24/2023 [facility] DATE CREATED AUTHOR AUTHOR'S ORGANIZ ATION 08/21/2024 [facility] Source Comments (unrecognize d section and content) In the event this informatio n is protected by the Federal Confidentiality of Alcohol and Drug Abuse Patient Records regulations: The Federal rules restrict any use of the information to criminally investigate or prosecute any alcohol or drug abuse patient.[facility] CampusIn the event this information is protected by the Federal Confidentiality of Alcohol and Drug Abuse Patient Records regulations: The Federal rules restrict any use of the information to criminally investigate or prosecute any alcohol or drug abuse patient.[facility] CampusIn the event this information is protected by the Federal Confidentiality of Alcohol and Drug Abuse Patient Records regulations: The Federal rules restrict any use of the information to criminally investigate or prosecute any alcohol or drug abuse patient.[facility] CampusIn the event this information is protected by the Federal Confidentiality of Alcohol and Drug Abuse Patient Records regulations: The Federal rules restrict any use of the information to criminally investigate or prosecute any alcohol or drug abuse patient.[facility] CampusIn the event this information is protected by the Federal Confidentiality of Alcohol and Drug Abuse Patient Records regulations: The Federal rules restrict any use of the information to criminally investigate or prosecute any alcohol or drug abuse patient.[facility] CampusIn the event this information is protected by the Federal Confidentiality of Alcohol and Drug Abuse Patient Records regulations: The Federal rules restrict any use of the information to criminally investigate or prosecute any alcohol or drug abuse patient.[facility] CampusIn the event this information is protected by the Federal Confidentiality of Alcohol and Drug Abuse Patient Records regulations: The Federal rules restrict any use of the information to criminally investigate or prosecute any alcohol or drug abuse patient.[facility] CampusIn the event this information is protected by the Federal Confidentiality of Alcohol and Drug Abuse Patient Records regulations: The Federal rules restrict any use of the information to criminally investigate or prosecute any alcohol or drug abuse patient.[facility] CampusIn the event this information is protected by the Federal Confidentiality of Alcohol and Drug Abuse Patient Records regulations: The Federal rules restrict any use of the information to criminally investigate or prosecute any alcohol or drug abuse patient.[facility] CampusIn the event this information is protected by the Federal Confidentiality of Alcohol and Drug Abuse Patient Records regulations: The Federal rules restrict any use of the information to criminally investigate or prosecute any alcohol or drug abuse patient.[facility] CampusIn the event this information is protected by the Federal Confidentiality of Alcohol and Drug Abuse Patient Records regulations: The Federal rules restrict any use of the information to criminally investigate or prosecute any alcohol or drug abuse patient.[facility] CampusIn the event this information is protected by the Federal Confidentiality of Alcohol and Drug Abuse Patient Records regulations: The Federal rules restrict any use of the information to criminally investigate or prosecute any alcohol or drug abuse patient.[facility] the event this information is protected by the Federal Confidentiality of Alcohol and Drug Abuse Patient Records regulations: The Federal rules restrict any use of the information to criminally investigate or prosecute any alcohol or drug abuse patient.[facility] CampusIn the event this information is protected by the Federal Confidentiality of Alcohol and Drug Abuse Patient Records regulations: The Federal rules restrict any use of the information to criminally investigate or prosecute any alcohol or drug abuse patient.[facility] CampusIn the event this information is protected by the Federal Confidentiality of Alcohol and Drug Abuse Patient Records regulations: The Federal rules restrict any use of the information to criminally investigate or prosecute any alcohol or drug abuse patient.[facility] the event this information is protected by the Federal Confidentiality of Alcohol and Drug Abuse Patient Records regulations: The Federal rules restrict any use of the information to criminally investigate or prosecute any alcohol or drug abuse patient.[facility] CampusIn the event this information is protected by the Federal Confidentiality of Alcohol and Drug Abuse Patient Records regulations: The Federal rules restrict any use of the information to criminally investigate or prosecute any alcohol or drug abuse patient.[facility] CampusIn the event this information is protected by the Federal Confidentiality of Alcohol and Drug Abuse Patient Records regulations: The Federal rules restrict any use of the information to criminally investigate or prosecute any alcohol or drug abuse patient.[facility] CampusIn the event this information is protected by the Federal Confidentiality of Alcohol and Drug Abuse Patient Records regulations: The Federal rules restrict any use of the information to criminally investigate or prosecute any alcohol or drug abuse patient.[facility] CampusIn the event this information is protected by the Federal Confidentiality of Alcohol and Drug Abuse Patient Records regulations: The Federal rules restrict any use of the information to criminally investigate or prosecute any alcohol or drug abuse patient.[facility] CampusIn the event this information is protected by the Federal Confidentiality of Alcohol and Drug Abuse Patient Records regulations: The Federal rules restrict any use of the information to criminally investigate or prosecute any alcohol or drug abuse patient.[facility] CampusIn the event this information is protected by the Federal Confidentiality of Alcohol and Drug Abuse Patient Records regulations: The Federal rules restrict any use of the information to criminally investigate or prosecute any alcohol or drug abuse patient.[facility] CampusIn the event this information is protected by the Federal Confidentiality of Alcohol and Drug Abuse Patient Records regulations: The Federal rules restrict any use of the information to criminally investigate or prosecute any alcohol or drug abuse patient.[facility] [facility] the event this information is protected by the Federal Confidentiality of Alcohol and Drug Abuse Patient Records regulations: The Federal rules restrict any use of the information to criminally investigate or prosecute any alcohol or drug abuse patient.[facility] the event this information is protected by the Federal Confidentiality of Alcohol and Drug Abuse Patient Records regulations: The Federal rules restrict any use of the information to criminally investigate or prosecute any alcohol or drug abuse patient.[facility] the event this information is protected by the Federal Confidentiality of Alcohol and Drug Abuse Patient Records regulations: The Federal rules restrict any use of the information to criminally investigate or prosecute any alcohol or drug abuse patient.[facility] the event this information is protected by the Federal Confidentiality of Alcohol and Drug Abuse Patient Records regulations: The Federal rules restrict any use of the information to criminally investigate or prosecute any alcohol or drug abuse patient.[facility] the event this information is protected by the Federal Confidentiality of Alcohol and Drug Abuse Patient Records regulations: The Federal rules restrict any use of the information to criminally investigate or prosecute any alcohol or drug abuse patient.[facility] the event this information is protected by the Federal Confidentiality of Alcohol and Drug Abuse Patient Records regulations: The Federal rules restrict any use of the information to criminally investigate or prosecute any alcohol or drug abuse patient.[facility] the event this information is protected by the Federal Confidentiality of Alcohol and Drug Abuse Patient Records regulations: The Federal rules restrict any use of the information to criminally investigate or prosecute any alcohol or drug abuse patient.[facility] CampusIn the event this information is protected by the Federal Confidentiality of Alcohol and Drug Abuse Patient Records regulations: The Federal rules restrict any use of the information to criminally investigate or prosecute any alcohol or drug abuse patient.[facility] CampusIn the event this information is protected by the Federal Confidentiality of Alcohol and Drug Abuse Patient Records regulations: The Federal rules restrict any use of the information to criminally investigate or prosecute any alcohol or drug abuse patient.[facility]In the event this information is protected by the Federal Confidentiality of Alcohol and Drug Abuse Patient Records regulations: The Federal rules restrict any use of the information to criminally investigate or prosecute any alcohol or drug abuse patient.[facility] CampusIn the event this information is protected by the Federal Confidentiality of Alcohol and Drug Abuse Patient Records regulations: The Federal rules restrict any use of the information to criminally investigate or prosecute any alcohol or drug abuse patient.[facility] Reason for Visit (unrecogniz ed section and content) Reason Onset Date Comments Care 07/15/2021 Reason Comments Cough x4 mths, reported in creased SOB, intermittent chest pain Fever Travel to [place], 33 wks , reported good FM Reason Onset Date Comments Care 08/01/2021 Reason Onset Date Comments Care 08/14/2021 Reason Comments Nst (Non Stress Test) Reason Onset Date Comments Care 08/22/2021 Reason Comments Patient Update Reason Onset Date Comments Care 08/25/2021 Reason Onset Date Comments Care 08/29/2021 Reason Comments Ob Delivery Note Reason Comments Refill Request Reason Onset Date Comments Refill Request 12/12/2022 Reason Onset Date Comments Refill Request Refill Request 12/09/2022 Refill Request 12/15/2022 Reason Comments Menstrual Problem Reason Comments Initial OB Visit Reason Onset Date Comments Care 03/19/2023 Reason Comments Question (OB Question) Reason Onset Date Comments Care 06/23/2023 Reason Onset Date Comments Care 07/20/2023 Reason Comments Appointment Reason Comments Bleeding With Reason Onset Date Comments Care 08/06/2023 Reason Onset Date Comments Care 08/10/2023 Specialty Diagnoses / Procedures Referred By Contac t Referred To Contact [facility] Diagnoses AMA (advanced maternal age) multigravida 35+, third trimester Procedures NON-STRESS TEST NON-STRESS TEST Silvia Schwab MD [facility] [place] [address] [facility] [address] [place] [id number] Referral ID Status Reason Start Date Expiration Date V isits Requested Visits Authorized [id number] Closed Auto-Generate d Referral 07/20/2023 07/19/2024 4 1 Reason Comments Appointment Reason Onset Date Comments Refill Request 05/20/2024 Reason Onset Date Comments Refill Request 08/13/2024 Care Teams (unrecognized sec tion and content) Traffic Control Operator Relationship Specialty Start Date End Date Elena Hawkins PCP - General Family Practice 10/21/10 Traffic Control Operator Relationship Specialty Start Date End Date Elena Hawkins PCP - General Family Practice 10/21/10 Traffic Control Operator Relationship Specialty Start Date End Date Elena Hawkins Sharmila PCP - General Family Practice 10/21/10 Traffic Control Operator Relationship Specialty Start Date End Date Elena Hawkins Sharmila PCP - General Family Practice 10/21/10 Traffic Control Operator Relationship Specialty Start Date End Date LoismianElena quinn Sahrmila PCP - General Family Practice 10/21/10 Traffic Control Operator Relationship Specialty Start Date End Date Loisdanika Elena Sharmila PCP - General Family Practice 10/21/10 Traffic Control Operator Relationship Specialty Start Date End Date LoisElena garnica PCP - General Family Practice 10/21/10 Traffic Control Operator Relationship Specialty Start Date End Date Loisdanika Elena Sharmila PCP - General Family Practice 10/21/10 Traffic Control Operator Relationship Specialty Start Date End Date Loisdanika Elena Sharmila PCP - General Family Practice 10/21/10 Traffic Control Operator Relationship Specialty Start Date End Date LoisElena garnica PCP - General Family Practice 10/21/10 Traffic Control Operator Relationship Specialty Start Date End Date Ross Elena Sharmila PCP - General Family Medicine 10/21/10 Traffic Control Operator Relationship Specialty Start Date End Date Elena Hawkins PCP - General Family Medicine 10/21/10 Traffic Control Operator Relationship Specialty Start Date End Date Elena Hawkins PCP - General Family Medicine 10/21/10 Traffic Control Operator Relationship Specialty Start Date End Date Ross Elena Doll PCP - General Family Medicine 10/21/10 Team Status: Active Member Role Status Dates Dr. Elena Hawkins MD Family Provider Active Dr. Elena Hawkins MD Primary Care Provider Active Team Status: Inactive Member Role Status Dates Dr. Elena Hawkins MD Primary Care Provider Active Dr. Mac Quinonez MD Attending Provider Active Team Status: Active Member Role Status Dates Dr. Elena Hawkins MD Primary Care Provider Active Dr. Mac Quinonez MD Attending Provider, Referring Prov ider Active Team Status: Inactive Member Role Status Dates Dr. Elena Hawkins MD Primary Care Provider Active Dr. Mac Quinonez MD Attending Provider, Referring Prov ider Active Traffic Control Operator Relationship Specialty Start Date End Date Elena Hawkins PCP - General Family Medicine 10/21/10 Traffic Control Operator Relationship Specialty Start Date End Date Elena Hawkins PCP - General Family Medicine 10/21/10 Traffic Control Operator Relationship Specialty Start Date End Date Elena Hawkins PCP - General Family Medicine 10/21/10 Traffic Control Operator Relationship Specialty Start Date End Date Elena Hawkins PCP - General Family Medicine 10/21/10 Traffic Control Operator Relationship Specialty Start Date End Date Elena Hawkins PCP - General Family Medicine 10/21/10 Traffic Control Operator Relationship Specialty Start Date End Date Elena Hawkins PCP - General Family Medicine 10/21/10 Traffic Control Operator Relationship Specialty Start Date End Date Elena Hawkins PCP - General Family Medicine 10/21/10 Traffic Control Operator Relationship Specialty Start Date End Date Elena Hawkins PCP - General Family Medicine 10/21/10 Traffic Control Operator Relationship Specialty Start Date End Date Elena Hawkins PCP - General Family Medicine 10/21/10 Team Status: Inactive Member Role Status Dates Dr. Elena Hawkins MD Primary Care Provider Active Dr. Brandi Ponce MD Attending Provider, Referring Provider Active Traffic Control Operator Relationship Specialty Start Date End Date Elena Hawkins PCP - General Family Medicine 10/21/10 Traffic Control Operator Relationship Specialty Start Date End Date Elena Hawkins PCP - General Family Medicine 10/21/10 Traffic Control Operator Relationship Specialty Start Date End Date Elena Hawkins PCP - General Family Medicine 10/21/10 Team Status: Inactive Member Role Status Dates Dr. Elena Hawkins MD Primary Care Provider Active Dr. Kristyn Caceres , DO Admit Provider, Attending Provid er Active Traffic Control Operator Relationship Specialty Start Date End Date Elena Hawkins PCP - General Family Medicine 10/21/10 Goals (unrecognized section and content) Goals may be documented in a n alternate sectionGoals may be documented in an alternate sectionGoals may be documented in an alternate sectionGoals may be documented in an alternate sectionGoals may be documented in an alternate section FOR RECORDS PERTAINING TO PATIENTS WHO ARE OR HAVE BEEN ENROLLED IN A CHEMICAL DEPENDENCY/SUBSTANCEABUSE PROGRAM, SOME INFORMATION MAY BE OMITTED. This clinical summary was aggregated from multiple sources. Caution should be exercised in using it in the provision of clinical care. This summary normalizes information from multiple sources, and as a consequence, information in this document may materially change the coding, format and clinical context of patient data. In addition, data may be omitted in some cases. CLINICAL DECISIONS SHOULD BE BASED ON THE PRIMARY CLINICAL RECORDS. [facility]. provides no warranty or guarantee of the accuracy or completeness of information in this document.
== END | disposition home or self-care (01) ==
LOC: MTLAB 10:38
PROVIDERS: PCP Family Medicine; Referring Provider Obstetrics & Gynecology Reproductive Endocrinology; Visit Provider Obstetrics & Gynecology Reproductive Endocrinology
DX: Z32.00 Encounter for pregnancy test, result unknown (principal)
CPT/HCPCS: 36415; 84702

== ENCOUNTER → 2024-09-25 | Outpatient (CLI) | payer OTHER, SELFPAY ==
[2024-09-25 16:35] LABS: hCG Titer Quant., Serum 1662 mIU/mL (<9 non-preg)
== END | disposition home or self-care (01) ==
LOC: MTLAB 09:53
PROVIDERS: PCP Family Medicine; Referring Provider Obstetrics & Gynecology Reproductive Endocrinology; Visit Provider Obstetrics & Gynecology Reproductive Endocrinology
DX: Z32.01 Encounter for pregnancy test, result positive (principal)
CPT/HCPCS: 36415; 84702